=== PATIENT | female | born 2000 | race Caucasian/White ===

== ENCOUNTER 2019-12-21 03:06 | Emergency (ER) | payer OTHER, SELFPAY ==
[2019-12-21 03:13] VITALS: BP 128/66; PULSE 109; RESP 20; TEMP 36.8; O2SAT 99
[2019-12-21 03:16] VITALS: O2SAT 99
--- NOTE | 2019-12-21 03:26 | ED.URI ---
HPI - URI/Sore Throat General Chief Complaint: Upper Respiratory Infection Stated Complaint: cough, fever Time Seen by Provider: 12/21/19 03:15 Source: patient Mode of arrival: ambulatory Limitations: no limitations History of Present Illness HPI Narrative: Black hung is a 19-year-old female patient. She presents ambulatory to the emergency room. She states that she has been sick for 1 week. She has had cough congestion. She has had fever. She has been taking some Tylenol. She has had a dry cough initially and now it is somewhat productive with yellowish green sputum. In the emergency room her temperature is 98?. 6? F she has some nausea. No abdominal pain. No chest pain. She has nasal congestion. Her throat is hurting. she has been taking some OTC medications. It is not helping. MD elicited complaint: fever, cough and sore throat Pertinent past history: other ( Anxiety) Onset (ago): week(s) ( 1 week) Consistency: intermittent Severity: moderate Description of mucous: yellow Exacerbating factors: nothing Relieving factors: nothing Context: other ( No recent travel) Associated symptoms: fever, chills, nasal congestion and sore throat Treatments prior to arrival: cold medicine Related Data Home Medications Medication Instructions Recorded Confirmed buspirone 5 mg PO PRN PRN 12/21/19 12/21/19 Allergies Allergy/AdvReac Type Severity Reaction Status Date / Time Penicillins Allergy Severe Unknown Verified 11/12/19 15:42 Sulfa (Sulfonamide Allergy Unknown Verified 11/16/19 08:17 Antibiotics) Review of Systems Review of Systems: All systems reviewed & are unremarkable except as noted in HPI and below Constitutional: Constitutional: Reports as per HPI, Reports chills and Reports fever(s) Eyes: Eyes: Reports as per HPI, Reports no additional eye complaints and Denies change in vision ENT: Reports system reviewed and no additional complaints, except as documented, Reports nasal congestion and Reports sore throat Cardiovascular: Cardiovascular: Denies chest pain and Denies radiating jaw, neck or arm pain Respiratory: Respiratory: Reports as per HPI, Reports no additional respiratory complaints, Reports cough and Reports wheezing Gastrointestinal: Gastrointestinal: Reports as per HPI, Denies abdominal pain and Reports nausea Genitourinary: Genitourinary: Reports no additional female genitourinary complaints, Denies hematuria and Denies dysuria Musculoskeletal: Musculoskeletal: Reports no additional musculoskeletal complaints, Denies arthralgias and Denies muscle cramps Integumentary/Breasts: Skin/Breast: Reports system reviewed and no additional complaints, except as docu and Denies rash Neurologic: Reports system reviewed and no additional complaints, except as documented, Denies syncope and Denies numbness Psychiatric: Psychiatric: Reports no additional psychiatric complaints and Reports anxiety Endocrine: Endocrine: Reports no additional endocrine complaints and Denies polydipsia Hematologic/Lymphatic: Hematologic/Lymphatic: Reports no additional hematologic/lymphatic complaints, Denies easy bleeding and Denies easy bruising Allergic/Immunologic: Allergic/Immunologic: Reports no additional allergic/immunologic complaints, Denies lip swelling and Denies tongue swelling PMFSH Past Medical History Medical History Anxiety Goiter Surgical History Surgical History No pertinent past surgical history Family History Family History Grandparent Diabetes mellitus Hypertension Other Family history of malignant neoplasm of cervix Social History Social History Smoking status: Never smoker Alcohol intake: never Exam Const: General: no acute distress ( moderate d
[2019-12-21] MEDS: BENZONATATE 100 MG CAPSULE PO (03:41)
--- NOTE | 2019-12-21 03:49 | PC.NURSE ---
Unable to document NF drug Robitussin AC on JAN. Pt. given 5ml as per stat order of Guaifenesin AC syrup.
[2019-12-21 03:50] LABS: Influenza Control Valid (Valid)
[2019-12-21] MEDS: ONDANSETRON HCL ODT 4 MG TABLET SUBLINGUAL (03:54)
[2019-12-21 04:06] VITALS: BP 110/62; PULSE 100; RESP 18; O2SAT 99
== END 2019-12-21 04:21 | disposition home or self-care (01) ==
PROVIDERS: Emergency Provider Surgery; PCP Internal Medicine
DX: J40 Bronchitis, not specified as acute or chronic (principal); J06.9 Acute upper respiratory infection, unspecified
CPT/HCPCS: 87081; 87804; 87880; 99283; A9270

== ENCOUNTER 2021-01-10 00:44 | Emergency (ER) | payer OTHER, SELFPAY ==
--- NOTE | ~2021-01-10 | CT_ITS ---
EXAMINATION: CT abdomen pelvis w con EXAM DATE: 01/10/2021 03:02 INDICATION: Left lower quadrant pain. TECHNIQUE: Spiral CT of the abdomen and pelvis was performed following intravenous injection of 100 m L Omnipaque 350. Axial, coronal and sagittal images were reviewed. The dose-length product (DLP) fo r this examination was 210.85 mGy-cm. The exposure was tailored according to patient size (auto mA e xposure control), and iterative reconstruction (ASIR) was used as additional dose reduction technique . Comparison is made to prior examination from 09/22/2018. FINDINGS: The liver, spleen, adrenal glands and pancreas are unremarkable. Gallbladder is unremarkab le. No biliary obstruction. Portal and splenic veins are patent. Kidneys enhance symmetrically. T here is no hydronephrosis. There is IUD which appears to be centrally located within the endometriu m, expected position. Trace free pelvic fluid, likely physiologic. The bladder is unremarkable. The re is no retroperitoneal or pelvic lymphadenopathy. Probable identification of a normal appendix. No pericecal inflammation. The stomach and small jillian l are unremarkable. The colon is nondistended throughout, with mildly prominent appearing wall. No free intraperitoneal gas. The heart is normal in size. There are no pericardial or pleural effusi ons. The lung bases are unremarkable. The bones are unremarkable. IMPRESSION: 1. Possible mild colitis. Reviewed, dictated and finalized at location B. BAG STITCHER IMPRESSION: 1. Possible mild colitis.
[2021-01-10 00:53] VITALS: BP 109/68; PULSE 99; RESP 18; TEMP 37.1; O2SAT 100
[2021-01-10 01:08] LABS: Basophils Percent Auto 0.2 % (0.2-1.2); Eosinophils Percent Auto 0.2 % (0-4.4); Hemoglobin 15.4 g/dL (12.0-15.0); Immature Granulocyte Absolute 0.08 K/mm3 (0.00-0.031); Immature Granulocyte Percent A 0.5 % (0-0.5); Lymphocytes Absolute Auto 1.48 K/mm3 (0.9-3.2); Lymphocytes Percent Auto 8.9 % (18.3-44.2); Mean Corpuscular HGB Conc 34.2 g/dl (32-36); Mean Corpuscular Hemoglobin 32.1 pg (26-34); Mean Corpuscular Volume 93.8 fl (80-100); Mean Platelet Volume 9.6 fl (7.4-10.4); Monocytes Percent Auto 5.8 % (2.6-8.5); Neutrophils Percent Auto 84.4 % (45.5-73.1); Platelet Count Result 317 k/mm3 (150-375); White Blood Count 16.6 K/mm3 (4.5-10.0)
--- NOTE | 2021-01-10 01:08 | ED.NAVMDI ---
HPI - Nausea/Vomiting/Diarrhea General Chief complaint: Nausea/Vomiting/Diarrhea <Cruz Muro MD - Last Filed: 01/10/21 01:36> Stated complaint: Nausea, vomiting, fevers <Cruz Muro MD - Last Filed: 01/10/21 01:36> Time Seen by Provider: 01/10/21 00:58 <Cruz Muro MD - Last Filed: 01/10/21 01:36> Source: patient and family <Cruz Muro MD - Last Filed: 01/10/21 01:36> Mode of arrival: ambulatory <Cruz Muro MD - Last Filed: 01/10/21 01:36> Limitations: no limitations <Cruz Muro MD - Last Filed: 01/10/21 01:36> History of Present Illness HPI Narrative: Patient is 20 years old white female brought to the emergency room by her sister, complaining of nausea and vomiting started around noon today associated with left lower quadrant pain. Patient denies any fever, chills, diarrhea, chest pain, shortness of breath, headache, similar symptoms, history of Covid or exposure to anybody known having Covid.. History with a lot of stress lately started having antidepressant medication few days ago, history of stomach ulcer not on any medications, history of tonsillitis, started on Z-Terence 3 days ago Patient is a smoker, uses marijuana, drinks occasionally <Cruz Muro MD - Last Filed: 01/10/21 01:36> Related Data Home medications: Home Medications Medication Instructions Recorded Confirmed buspirone 5 mg PO PRN PRN 12/21/19 12/21/19 <Cruz Muro MD - Last Filed: 01/10/21 01:36> Allergies/Adverse reactions: Allergies Allergy/AdvReac Type Severity Reaction Status Date / Time Penicillins Allergy Severe Unknown Verified 01/10/21 00:56 Sulfa (Sulfonamide Allergy Unknown Verified 01/10/21 00:56 Antibiotics) <Cruz Muro MD - Last Filed: 01/10/21 01:36> Review of Systems Review of Systems: Narrative: CONSTITUTIONAL: Denies fever, chills, or sweats. EYES: Denies visual changes, redness, or discharge. ENT: Denies rhinorrhea, congestion, sore throat, or otalgia. CARDIOVASCULAR: Denies chest pain, palpitations, or edema. RESPIRATORY: Denies cough or dyspnea. GASTROINTESTINAL: Abdominal pain, nausea and vomiting GENITOURINARY: Denies dysuria or hematuria. SKIN: Denies rash or itching. MUSCULOSKELETAL: Denies back pain, joint pain, or myalgia. NEUROLOGIC: Denies headache, numbness, or weakness. PSYCHIATRIC: Denies anxiety or depression. <Cruz Muro MD - Last Filed: 01/10/21 01:36> PMFSH Past Medical History Medical History: Medical History (Updated 01/10/21 @ 05:06 by Tawanda Valadez DO) Anxiety Goiter <Cruz Muro MD - Last Filed: 01/10/21 01:36> Surgical History Surgical History: Surgical History No pertinent past surgical history <Cruz Muro MD - Last Filed: 01/10/21 01:36> Family History Family History: Family History Grandparent Diabetes mellitus Hypertension Other Family history of malignant neoplasm of cervix <Cruz Muro MD - Last Filed: 01/10/21 01:36> Social History Social History: Social History Smoking status: Never smoker Alcohol intake: never Gender identity (if verbalized by the patient): Female <Cruz Muro MD - Last Filed: 01/10/21 01:36> Exam Narrative: Exam Narrative: General appearance: Well-developed, well-nourished, looks ill, sister at the bedside Skin: Pale Head: Normocephalic, nontraumatic Eyes: Clear conjunctiva ENT: Oropharynx normal, ears normal, nose normal Neck: Supple, nontender Chest and respiratory: Airway patent, no respiratory distress, no accessory muscle use Heart: Regular rate/rhythm Abdomen: Soft, slight tenderness left lower quadrant, no guarding or rebound, no organomegaly, quiet bowel sounds Vascular: Normal peripheral pulses, normal capillary refill. Neurologic: Alert and oriented
--- NOTE | 2021-01-10 01:10 | PC.NURSE ---
Pt unable to give urine sample at this time
[2021-01-10] MEDS: diphenhydrAMINE HCl INJ 50 MG/ML VIAL IV PUSH (01:14)
[2021-01-10] MEDS: SODIUM CHLORIDE 0.9% IV 2,000 ML 999 ML IV CONT (01:14)
[2021-01-10] MEDS: METOCLOPRAMIDE HCL INJ 10 MG/2 ML VIAL IV PUSH (01:14)
[2021-01-10 01:27] LABS: Albumin Level 4.8 g/dL (3.5-5.1); Alkaline Phosphatase 72 U/L (38-126); Anion Gap 15 mmol/L (8-16); Aspartate Amino Transferase 30 U/L (14-36); Bilirubin,Total 1.4 mg/dL (0.2-1.3); Blood Urea Nitrogen 16 mg/dL (7-17); Calcium 9.8 mg/dL (8.4-10.2); Carbon Dioxide 20 mmol/L (22-30); Chloride 103 mmol/L (98-107); Estimated CRCL calculation 82 ml/min; Estimated Glomerular Filt Rate > 60; Glucose 156 mg/dL (65-105); Lipase 88 U/L (23-300); Potassium 3.9 mmol/L (3.4-5.0); Sodium 138 mmol/L (137-145)
[2021-01-10 01:41] LABS: Alanine Aminotransferase 28 U/L (4-35)
[2021-01-10] MEDS: ONDANSETRON INJ 4 MG/2 ML VIAL IV PUSH ×2 (02:03→04:30)
[2021-01-10 03:03] LABS: Add Urine Microscopic? YES; Appearance Urine Clear (Clear); Bilirubin Urine Negative (Negative); Blood Urine Negative (Negative); Color Urine Straw (Yellow); Glucose Urine UA 1+ mg/dL (Negative); Ketones Urine 1+ mg/dL (Negative); Leukocyte Esterase Ur Negative LEU/UL (Negative); Mucus Urine Rare /lpf; Nitrate Urine Negative (Negative); Protein Urine Negative (Negative); RBC Urine 0-2 /hpf (0-2); Specific Grav Ur 1.017 (1.001-1.035); Squamous Epithelial Cell Urine Few /hpf (Few); Urobilinogen Urine Negative mg/dL (<2.0); WBC Urine 0-3 /hpf
[2021-01-10 03:10] LABS: Amphetamine Screen Urine Negative (Negative); Barbiturate Screen Urine Negative (Negative); Benzodiazepines Screen Urine Negative (Negative); Cannabinoid Screen Urine Positive (Negative); Cocaine Screen Urine Negative (Negative); Methadone Screen Urine Negative (Negative); Opiate Screen Urine Negative (Negative); Phencyclidine Screen Urine Negative (Negative)
[2021-01-10] MEDS: KETOROLAC 15 MG/ML VIAL (*BKC) IV PUSH (04:07)
[2021-01-10] MEDS: DICYCLOMINE HCL INJ 20 MG/2 ML VIAL IM (04:07)
[2021-01-10] MEDS: MORPHINE SULFATE (*CRX) 4 MG/ML INJ IV PUSH (04:29)
[2021-01-10] MEDS: PROCHLORPERAZINE EDISYLATE 10 MG/2 ML VIAL 5 MG IV PUSH (04:33)
[2021-01-10] MEDS: metroNIDAZOLE 500 MG/ISO 100ML 500 MG/100 ML BAG 100 MG IVPB (04:55)
[2021-01-10 04:56] VITALS: BP 105/79; PULSE 63; RESP 18; O2SAT 99
[2021-01-10] MEDS: CIPROFLOXACIN 400 MG/D5W 200ML 200 ML 200 MG IVPB (05:27)
[2021-01-10 06:51] VITALS: BP 96/65; PULSE 89; RESP 18; O2SAT 97
== END 2021-01-10 06:53 | disposition home or self-care (01) ==
PROVIDERS: Emergency Medicine; Emergency Provider Emergency Medicine; PCP Internal Medicine
DX: K52.9 Noninfective gastroenteritis and colitis, unspecified (principal); F41.9 Anxiety disorder, unspecified
CPT/HCPCS: 36415; 74177; 80053; 80307; 81001; 81025; 83690; 85025; 96361; 96365; 96367; 96372; 96375; 96376; 99284; J0500; J0744; J0780; J1200; J1885; J2270; J2405; J2765; J7030; Q9967

== ENCOUNTER 2021-03-08 06:57 | Emergency (ER) | payer OTHER, SELFPAY ==
--- NOTE | ~2021-03-08 | XR_ITS ---
EXAMINATION: XR chest 2V DATE: 03/08/2021 08:04 INDICATION: Chest congestion. Cough. Shortness of breath. TECHNIQUE: Frontal and lateral views of the chest were obtained. COMPARISON: Chest 2 views 11/16/2019 FINDINGS: The chest demonstrates clear lungs without pneumonia, pleural effusion, or pneumothorax. Th e heart size is normal. IMPRESSION: 1. No acute cardiopulmonary disease. Reviewed, dictated and finalized at location B.
[2021-03-08 07:05] VITALS: BP 103/89; PULSE 96; RESP 20; TEMP 36.7; O2SAT 96
[2021-03-08] MEDS: IPRATROPIUM 0.5 MG/ALBUTEROL SULFATE 2.5 MG AMPUL.NEB 3 ML INHALATION (07:25)
[2021-03-08 07:26] VITALS: PULSE 112; RESP 18; O2SAT 99
[2021-03-08 07:28] LABS: Basophils Absolute Auto 0.04 K/mm3 (0.00-0.10); Basophils Percent Auto 0.3 % (0.0-1.0); Eosinophils Absolute Auto 0.06 K/mm3 (0.02-0.50); Eosinophils Percent Auto 0.4 % (1.0-6.0); Hematocrit 42.7 % (35.0-49.0); Hemoglobin 14.6 g/dL (12.0-15.0); Immature Granulocyte Absolute 0.06 K/mm3 (0.00-0.00); Immature Granulocyte Percent A 0.4 % (0.0-0.0); Lymphocytes Absolute Auto 1.27 K/mm3 (1.10-4.50); Lymphocytes Percent Auto 8.7 % (18.0-42.0); Mean Corpuscular HGB Conc 34.2 g/dL (32.0-36.0); Mean Corpuscular Hemoglobin 32.2 pg (27.0-31.0); Mean Corpuscular Volume 94.3 fL (78.0-102.0); Mean Platelet Volume 9.6 fl (9.2-11.8); Monocytes Percent Auto 9.6 % (2.0-11.0); Neutrophils Absolute Auto 11.7 K/mm3 (1.7-7.2); Neutrophils Percent Auto 80.6 % (50.0-70.0); Platelet Count Result 294 K/mm3 (150-420); Red Blood Count 4.53 M/mm3 (4.20-5.40); Red Cell Distribution Width 12.2 % (11.6-14.4); White Blood Count 14.6 K/mm3 (4.8-10.8)
[2021-03-08 07:30] VITALS: PULSE 112; RESP 18; O2SAT 99
[2021-03-08] MEDS: BENZONATATE 100 MG CAPSULE 200 MG PO (07:40)
[2021-03-08 07:46] LABS: Alanine Aminotransferase 22 U/L (14-59); Albumin Level 4.1 g/dL (3.4-5.0); Alkaline Phosphatase 81 U/L (46-116); Anion Gap 12 mmol/L (8-16); Aspartate Amino Transferase 17 U/L (15-37); Bilirubin,Total 0.7 mg/dL (0.00-1.00); Blood Urea Nitrogen 6 mg/dL (7-18); Calcium 9.6 mg/dL (8.5-10.1); Carbon Dioxide 25 mmol/L (21-32); Chloride 102 mmol/L (98-108); Estimated Glomerular Filt Rate > 60; Glucose 99 mg/dL (70-99); Osmolality Calculated 285 mOsm/kg (285-295); Potassium 3.7 mmol/L (3.5-5.1); Sodium 139 mmol/L (136-145); Total Protein 7.6 g/dL (6.4-8.2)
--- NOTE | 2021-03-08 08:08 | ED.URI ---
HPI - URI/Sore Throat General Chief Complaint: Upper Respiratory Infection Stated Complaint: cough sob Source: patient Mode of arrival: ambulatory Limitations: no limitations History of Present Illness HPI Narrative: this is a 20-year-old female with a cough and chest congestion for the last week with no fever or chills has tried aokh-lit-gzliihx medications with minimal relief currently no shortness of breath her O2 saturations are 99% on room air but has a constant cough with some no chest tightness, patient has a remote history of asthma but has not had inhalers and ears. Currently there is no audible wheezing there is some sinus congestion with nasal discharge. MD elicited complaint: cough and nasal congestion Onset (ago): day(s) Consistency: constant Severity: moderate Description of mucous: clear Able to tolerate fluids by mouth: Yes Related Data Home Medications Medication Instructions Recorded Confirmed clonazepam [Klonopin] 0.5 mg PO DAILY PRN 03/08/21 03/08/21 Allergies Allergy/AdvReac Type Severity Reaction Status Date / Time Penicillins Allergy Severe Unknown Verified 01/10/21 00:56 Sulfa (Sulfonamide Allergy Unknown Verified 01/10/21 00:56 Antibiotics) Review of Systems Review of Systems: All systems reviewed & are unremarkable except as noted in HPI and below PMFSH Past Medical History Medical History (Updated 03/08/21 @ 08:12 by Rico Oneill MD) Anxiety Goiter Surgical History Surgical History No pertinent past surgical history Family History Family History Grandparent Diabetes mellitus Hypertension Other Family history of malignant neoplasm of cervix Social History Social History Smoking status: Never smoker Alcohol intake: never Gender identity (if verbalized by the patient): Female Exam Const: General: no acute distress and alert Orientation/consciousness: patient oriented x3 Limitations: altered mental status HENMT: Head: normal to inspection Eyes: Conjunctivae: conjunctivae normal EOM: EOMs intact bilaterally Neck: Neck: normal visual inspection, no lymphadenopathy and no meningeal signs Chest: Chest palpation & inspection: normal inspection of the chest Resp: Effort & Inspection: normal respiratory effort Auscultation: rales Cardio: Rate: regular rate Rhythm: regular rhythm GI: GI Palp: Yes Soft to palpation Back/Spine/Pelvis: Back: no CVA tenderness Skin: General skin exam: normal color Rashes: no rashes Extrem: General: normal to inspection Psych: Mental Status: mental status grossly normal Course Course Emergency Course: Patient received a nebulizer treatment along with Tessalon Perle cough has improved, will send antibiotic to pharmacy for the front upper respiratory tract infection. Vital Signs Vital signs: Vital Signs Temperature 36.7 C 03/08/21 07:05 Pulse Rate 96 03/08/21 07:05 Respiratory Rate 20 03/08/21 07:05 Blood Pressure 103/89 03/08/21 07:05 Pulse Oximetry 96 03/08/21 07:05 Temperature 36.7 C 03/08/21 07:05 Pulse Rate 112 H 03/08/21 07:30 Respiratory Rate 18 03/08/21 07:30 Blood Pressure 103/89 03/08/21 07:05 Pulse Oximetry 99 03/08/21 07:30 MDM - URI/Sore Throat Lab Data Result diagrams: 03/08/21 07:23 03/08/21 07:23 Labs: Lab Results 03/08/21 03/08/21 Range/Units 07:23 07:23 WBC 14.6 H (4.8-10.8) K/mm3 RBC 4.53 (4.20-5.40) M/mm3 Hgb 14.6 (12.0-15.0) g/dL Hct 42.7 (35.0-49.0) % MCV 94.3 (78.0-102.0) fL MCH 32.2 H (27.0-31.0) pg MCHC 34.2 (32.0-36.0) g/dL RDW 12.2 (11.6-14.4) % Plt Count 294 (150-420) K/mm3 MPV 9.6 (9.2-11.8) fl Immature Gran % (Auto) 0.4 H (0.0-0.0) % Neut % (Auto) 80.6 H (50.0-70.0) % Lymph % (Au
[2021-03-08 08:16] VITALS: RESP 17
== END 2021-03-08 08:18 | disposition home or self-care (01) ==
PROVIDERS: Emergency Provider Emergency Medicine; PCP Internal Medicine
DX: J06.9 Acute upper respiratory infection, unspecified (principal)
CPT/HCPCS: 36415; 71046; 80053; 85025; 94640; 99283; A9270

== ENCOUNTER 2021-03-18 10:25 | Observation (INO) | payer OTHER, SELFPAY ==
--- NOTE | ~2021-03-18 | XR_ITS ---
XR chest 2V DATE: 03/18/2021 11:32 INDICATION: Productive cough TECHNIQUE: PA and lateral views COMPARISON: 03/08/2021 PA and lateral chest FINDINGS: Mild levoscoliosis of the thoracic spine. Normal heart size. No hilar or mediastinal enlargement. No pulmonary infiltrate or consolidation, ple ural effusion or pulmonary vascular congestion or pneumothorax. IMPRESSION: No active cardiopulmonary disease or significant change since 03/08/2021 Reviewed, dictated and finalized at location A. IMPRESSION: No active cardiopulmonary disease or significant change since 2020
[2021-03-18 10:25] VITALS: BP 112/74; PULSE 94; RESP 20; TEMP 36.2; O2SAT 100
[2021-03-18] MEDS: SODIUM CHLORIDE 0.9% IV 1,000 ML 999 ML IV CONT ×2 (10:50→11:42)
[2021-03-18] MEDS: ONDANSETRON INJ 4 MG/2 ML VIAL IV PUSH ×3 (10:50→15:13)
--- NOTE | 2021-03-18 10:56 | ED.NAVMDI ---
HPI - Nausea/Vomiting/Diarrhea General Source: patient Mode of arrival: ambulatory Limitations: no limitations History of Present Illness HPI Narrative: 20-year-old comes in today complaining of vomiting that started approximately 1:00 a.m.. Patient states that she does usually drink alcohol but last night she drank much more than usual. She states she is also a daily marijuana user. She has upper abdominal pain but no fever, dysuria, hematuria, rash or edema. She states that she is on an antibiotic for a respiratory infection but overnight she started having shortness of breath and a productive cough. MD elicited complaint: vomiting and abdominal pain Onset (ago): hour(s) (10) Description of vomiting: food contents, watery and bloody ( After arrival to the emergency department) Associated nausea: Yes Associated abdominal pain: Yes Location of pain: epigastric Pain consistency: constant Severity: severe Exacerbating factors: vomiting and other ( attempting to drink fluids) Relieving factors: none Context: alcohol abuse and marijuana use Associated symptoms: cough, nausea/vomiting and shortness of breath Treatment prior to arrival: none Related Data Home Medications Medication Instructions Recorded Confirmed No Home Medications 03/18/21 03/18/21 Allergies Allergy/AdvReac Type Severity Reaction Status Date / Time Penicillins Allergy Severe Unknown Verified 01/10/21 00:56 Sulfa (Sulfonamide Allergy Unknown Verified 01/10/21 00:56 Antibiotics) Review of Systems Review of Systems: All systems reviewed & are unremarkable except as noted in HPI and below Constitutional: Constitutional: Denies chills and Denies fever(s) Eyes: Eyes: Denies change in vision and Denies photophobia ENT: Reports nasal congestion and Reports sore throat Cardiovascular: Cardiovascular: Denies chest pain and Denies radiating jaw, neck or arm pain Respiratory: Respiratory: Reports cough, Reports dyspnea and Denies wheezing Gastrointestinal: Gastrointestinal: Reports abdominal pain, Denies diarrhea and Reports vomiting Genitourinary: Genitourinary: Denies hematuria, Denies nocturia and Denies dysuria Musculoskeletal: Musculoskeletal: Denies back pain, Denies arthralgias and Denies joint swelling Integumentary/Breasts: Skin/Breast: Denies pruritus, Denies erythema and Denies rash Neurologic: Denies vertigo, Denies dizziness, Denies syncope, Denies focal weakness and Denies numbness Hematologic/Lymphatic: Hematologic/Lymphatic: Denies easy bleeding and Denies easy bruising Allergic/Immunologic: Allergic/Immunologic: Denies lip swelling and Denies throat swelling PMFSH Past Medical History Medical History Anxiety Goiter Surgical History Surgical History No pertinent past surgical history Family History Family History Grandparent Diabetes mellitus Hypertension Other Family history of malignant neoplasm of cervix Social History Social History Smoking status: Never smoker Alcohol intake: current Drinks per week: 1 Substance use: current Substance use type: marijuana Last use: daily Gender identity (if verbalized by the patient): Female Spiritual care concerns: No Exam Const: General: healthy appearing and alert Orientation/consciousness: patient oriented x3 Limitations: no limitations Other: moderate acute distress HENMT: Head: normal to inspection Ears: external ears normal, TM's normal bilaterally and EAC's normal General nose exam: Normal nares present Face and sinus: normal facial exam Mouth: Yes moist mucous membranes Throat: posterior oropharynx normal Eyes: Cornea: corneas normal Pupils: Equal, round and reactive pupils present EOM: EOMs intact bilaterally Res
[2021-03-18 11:14] LABS: Albumin Level 4.3 g/dL (3.4-5.0); Alkaline Phosphatase 81 U/L (46-116); Anion Gap 17 mmol/L (8-16); Aspartate Amino Transferase 18 U/L (15-37); Bilirubin,Total 0.5 mg/dL (0.00-1.00); Calcium 9.4 mg/dL (8.5-10.1); Carbon Dioxide 21 mmol/L (21-32); Chloride 100 mmol/L (98-108); Estimated CRCL calculation 60 ml/min; Estimated Glomerular Filt Rate > 60; Glucose 133 mg/dL (70-99); Potassium 3.6 mmol/L (3.5-5.1); Sodium 138 mmol/L (136-145); Total Protein 7.8 g/dL (6.4-8.2)
--- NOTE | 2021-03-18 11:16 | PC.NURSE ---
report to MARIA TERESA Faith
[2021-03-18 11:18] LABS: Hematocrit 42.4 % (35.0-49.0); Hemoglobin 14.1 g/dL (12.0-15.0); Mean Corpuscular HGB Conc 33.3 g/dL (32.0-36.0); Mean Corpuscular Hemoglobin 31.6 pg (27.0-31.0); Mean Corpuscular Volume 95.1 fL (78.0-102.0); Mean Platelet Volume 9.9 fl (9.2-11.8); Platelet Count Result 479 K/mm3 (150-420); Red Blood Count 4.46 M/mm3 (4.20-5.40); Red Cell Distribution Width 12.2 % (11.6-14.4)
[2021-03-18 11:21] LABS: White Blood Count 26.9 K/mm3 (4.8-10.8)
[2021-03-18 11:24] LABS: Blood Urea Nitrogen 5 mg/dL (7-18); Osmolality Calculated 285 mOsm/kg (285-295)
[2021-03-18 11:26] LABS: Lipase 36 U/L (73-393)
[2021-03-18 11:34] LABS: Alanine Aminotransferase 29 U/L (14-59)
[2021-03-18 11:40] LABS: Band Neutrophils Percent 0 % (0-6); Basophils Percent Manual 0 % (0-1); Eosinophils Percent Manual 0 % (1-6); Lymphocytes Absolute Manual 2.95 K/mm3 (1.1-4.5); Lymphocytes Percent Manual 11 % (18-44); Monocytes Absolute Manual 1.07 K/mm3 (0.1-0.90); Monocytes Percent Manual 4 % (3-9); Neutrophils Absolute Manual 23.13 K/mm3 (1.7-7.2); Neutrophils Percent Manual 86 % (46-73); Total Cells Counted 100
[2021-03-18] MEDS: PANTOPRAZOLE SODIUM IV 40 MG VIAL 80 MG IV PUSH (11:42)
[2021-03-18 12:26] LABS: Appearance Urine Clear (Clear); Bilirubin Urine Negative (Negative); Color Urine Yellow (Yellow); Glucose Urine UA Negative (Negative); Ketones Urine Trace (Negative); Leukocyte Esterase Ur Negative (Negative); Nitrate Urine Negative (Negative); Protein Urine Negative (Negative); Urobilinogen Urine 0.2 mg/dL (0.2-1.0)
[2021-03-18 12:28] LABS: Pregnancy On Board Control Positive; Urine Pregnancy Test Negative
[2021-03-18 12:29] LABS: Add Urine Microscopic? YES; Blood Urine Trace-lysed (Negative)
[2021-03-18 12:30] LABS: Bacteria Urine Trace /hpf; RBC Urine 0-2 /hpf (0-2); Squamous Epithelial Cell Urine Rare /hpf (Few); WBC Urine 0-3 /hpf (0-3)
[2021-03-18 12:33] LABS: Amphetamine Screen Urine Negative (Negative); Barbiturate Screen Urine Negative (Negative); Benzodiazepines Screen Urine Negative (Negative); Cannabinoid Screen Urine Positive (Negative); Cocaine Screen Urine Negative (Negative); Methadone Screen Urine Negative (Negative); Opiate Screen Urine Negative (Negative); Phencyclidine Screen Urine Negative (Negative)
[2021-03-18] MEDS: PROMETHAZINE HCL 25 MG/ML AMPUL IM (13:10)
[2021-03-18 13:22] VITALS: BP 106/64; PULSE 88; RESP 20; O2SAT 97
[2021-03-18 13:40] VITALS: BP 115/76; PULSE 64; RESP 16; TEMP 36.6; O2SAT 100
[2021-03-18 13:45] VITALS: BMI 18.8
[2021-03-18] MEDS: DEXTROSE 5%/LACTATED RINGERS 1,000 ML 150 ML IV CONT ×2 (13:54→20:23)
--- NOTE | 2021-03-18 13:58 | PM.IMHP ---
H&P: HPI History of Present Illness Date/Time: 03/18/21 13:58 Chief Complaint: Abdominal pain and vomiting. Narrative: 20-year-old woman with history of daily marijuana use comes in today complaining of upper abdominal pain and vomiting which started at 1:00 a.m.. Patient states that she does not usually drink alcohol but last evening drink many drinks. She denies any drug use last night. She is unable to keep down any fluids. After she arrived to the emergency department she states that she had a small amount of blood in her vomitus. she states she is currently taking antibiotics for a respiratory infection. She states that she has had increased shortness of breath and productive cough since her vomiting started last night. She denies hemoptysis, chest pain, fever, diarrhea, rash, bruising, dysuria, hematuria, or back pain. She had 8 mg of Zofran and 2 L of normal saline in the emergency department which did not improve her symptoms. She also had 25 Phenergan IM which improved her symptoms somewhat. Review of Systems Review of Systems: All systems reviewed & are unremarkable except as noted in HPI and below Constitutional: Constitutional: Denies chills, Reports fatigue, Denies fever(s) and Reports headache(s) Eyes: Eyes: Denies blurry vision, Denies change in vision and Denies diplopia ENT: Denies otalgia, Denies facial pain, Reports nasal congestion, Denies nasal discharge, Denies odynophagia and Reports sore throat Cardiovascular: Cardiovascular: Denies chest pain, Denies leg edema and Reports lightheadedness Respiratory: Respiratory: Reports cough, Denies hemoptysis, Reports excessive phlegm production and Reports dyspnea Gastrointestinal: Gastrointestinal: Reports abdominal pain, Denies melena, Denies hematochezia, Denies coffee ground emesis, Denies diarrhea, Reports nausea, Reports vomiting and Reports hematemesis Genitourinary: Genitourinary: Denies hematuria, Denies dysuria and Denies urinary urgency Musculoskeletal: Musculoskeletal: Denies back pain, Denies arthralgias, Denies joint swelling and Denies numbness Integumentary/Breasts: Skin/Breast: Denies erythema, Denies rash and Denies wounds Neurologic: Denies Abnormal speech present, Denies abnormal gait, Reports headache(s), Denies focal weakness, Denies loss of vision, Denies numbness and Denies paresthesias Psychiatric: Psychiatric: Reports anxiety and Denies depression Hematologic/Lymphatic: Hematologic/Lymphatic: Denies easy bleeding and Denies easy bruising Allergic/Immunologic: Allergic/Immunologic: Denies urticaria, Denies throat swelling and Denies tongue swelling PMFSH Past Medical History Medical History Anxiety Goiter Surgical History Surgical History No pertinent past surgical history Family History Family History Grandparent Diabetes mellitus Hypertension Other Family history of malignant neoplasm of cervix Social History Social History Smoking status: Never smoker Alcohol intake: current Drinks per week: 1 Substance use: current Substance use type: marijuana Last use: daily Gender identity (if verbalized by the patient): Female Spiritual care concerns: No Meds Home Medications and Allergies Home Medications Medication Instructions Recorded Confirmed Type No Home Medications 03/18/21 03/18/21 History Allergies Allergy/AdvReac Type Severity Reaction Status Date / Time Penicillins Allergy Severe Unknown Verified 01/10/21 00:56 Sulfa (Sulfonamide Allergy Unknown Verified 01/10/21 00:56 Antibiotics) Vital Signs Vital Signs - 24 hr 03/18/21 10:25 03/18/21 13:22 Temperature 36.2 C L Pulse Rate 94 88 Respiratory Rate 20 20 Blood Pressure 112/74 106/64 Pulse Oximetry
[2021-03-18 16:00] VITALS: BP 107/65; PULSE 90; RESP 16; TEMP 37.1; O2SAT 96
[2021-03-18] MEDS: PANTOPRAZOLE SODIUM IV 40 MG VIAL IV PUSH (20:47)
[2021-03-19] VITALS: BP 114/62; PULSE 82; RESP 20; TEMP 36.8; O2SAT 98
[2021-03-19] MEDS: DEXTROSE 5%/LACTATED RINGERS 1,000 ML 150 ML IV CONT (03:04)
[2021-03-19] MEDS: ONDANSETRON INJ 4 MG/2 ML VIAL IV PUSH (03:19)
[2021-03-19 05:45] LABS: Hemoglobin 12.3 g/dL (12.0-15.0); Mean Corpuscular HGB Conc 33.2 g/dL (32.0-36.0); Mean Corpuscular Hemoglobin 32.1 pg (27.0-31.0); Mean Corpuscular Volume 96.6 fL (78.0-102.0); Mean Platelet Volume 9.7 fl (9.2-11.8); Platelet Count Result 373 K/mm3 (150-420); Red Blood Count 3.83 M/mm3 (4.20-5.40); Red Cell Distribution Width 12.5 % (11.6-14.4)
[2021-03-19 05:49] LABS: White Blood Count 20.4 K/mm3 (4.8-10.8)
[2021-03-19 05:55] LABS: Alanine Aminotransferase 22 U/L (14-59); Albumin Level 3.3 g/dL (3.4-5.0); Alkaline Phosphatase 63 U/L (46-116); Anion Gap 7 mmol/L (8-16); Aspartate Amino Transferase 21 U/L (15-37); Bilirubin,Total 0.6 mg/dL (0.00-1.00); Blood Urea Nitrogen 5 mg/dL (7-18); Calcium 8.9 mg/dL (8.5-10.1); Carbon Dioxide 27 mmol/L (21-32); Chloride 106 mmol/L (98-108); Estimated CRCL calculation 82 ml/min; Estimated Glomerular Filt Rate > 60; Glucose 100 mg/dL (70-99); Osmolality Calculated 287 mOsm/kg (285-295); Potassium 3.5 mmol/L (3.5-5.1); Sodium 140 mmol/L (136-145); Total Protein 6.2 g/dL (6.4-8.2)
[2021-03-19 06:12] LABS: Band Neutrophils Percent 0 % (0-6); Lymphocytes Absolute Manual 1.02 K/mm3 (1.1-4.5); Lymphocytes Percent Manual 5 % (18-44); Monocytes Absolute Manual 1.02 K/mm3 (0.1-0.90); Monocytes Percent Manual 5 % (3-9); Neutrophils Absolute Manual 18.36 K/mm3 (1.7-7.2); Neutrophils Percent Manual 90 % (46-73); Total Cells Counted 100
[2021-03-19 06:13] LABS: Platelet Estimate Adequate (Adequate)
[2021-03-19 07:25] VITALS: BP 115/73; PULSE 81; RESP 18; TEMP 37.4; O2SAT 97
[2021-03-19] MEDS: PANTOPRAZOLE SODIUM IV 40 MG VIAL IV PUSH (08:48)
--- NOTE | 2021-03-19 10:33 | PM.DS ---
DS: Admitting Diagnosis Admitting Diagnosis Admitting Diagnosis: Nausea and Vomiting Drug-induced nausea and vomiting, Leukocytosis, Acute kidney injury, Hematemesis <CHECO Coyne - Last Filed: 03/19/21 10:48> DS: Discharge Diagnosis Discharge Diagnosis (1) Drug-induced nausea and vomiting: Code(s): R11.2 - Nausea with vomiting, unspecified; T50.905A - Adverse effect of unspecified drugs, medicaments and biological substances, initial encounter <CHECO Coyne - Last Filed: 03/19/21 10:48> Status: Acute <CHECO Coyne - Last Filed: 03/19/21 10:48> Assessment and Plan: Pt states she was given Metronidazole for an URI and then subsequently consumed EtOH. Pt is not having any more N/V at this time and has tolerated full liquids and a sandwich. Pt does admit that she is a daily marijuana smoker. <CHECO Coyne - Last Filed: 03/19/21 10:48> (2) Leukocytosis: Code(s): D72.829 - Elevated white blood cell count, unspecified <CHECO Coyne - Last Filed: 03/19/21 10:48> Status: Acute <CHECO Coyne - Last Filed: 03/19/21 10:48> Assessment and Plan: On DC documentation from this facility ER Pt was given a Medrol dose pack and Doxycycline, elevated WBC may be due to the steroid, WBC is down today at 20.4, Pt can follow up with PCP at DC, Pt does not have any other signs/symptoms <CHECO Coyne - Last Filed: 03/19/21 10:48> (3) Acute kidney injury: Code(s): N17.9 - Acute kidney failure, unspecified <CHECO Coyne - Last Filed: 03/19/21 10:48> Status: Acute <CHECO Coyne - Last Filed: 03/19/21 10:48> Assessment and Plan: Renal funciton improved this AM, Cr 0.81, Pt not complaining of any lower abdominal pain, back, flank pain, no N/V <Saji WilkinsonCHECO crabtree - Last Filed: 03/19/21 10:48> (4) Hematemesis: Code(s): K92.0 - Hematemesis <Saji SebastianCHECO - Last Filed: 03/19/21 10:48> Status: Acute <Saji SebastianLOCOKimCeleste - Last Filed: 03/19/21 10:48> Assessment and Plan: Pt has not had any more vomiting since shortly after she came to the floor yesterday, no reports of bloody sputum or cough. <Saji WilkinsonLOCO crabtreeKimCeleste - Last Filed: 03/19/21 10:48> DS: Summary Hospital Course Hospital Course: Pt has not had any more N/V and has tolerated PO full liquids as well as a sandwich. <Saji WilkinsonLOCO crabtreeKimCeleste - Last Filed: 03/19/21 10:48> Time Spent with Patient Time attestation: Total time spent providing and/or coordinating discharge services: < 30 minutes <Saji WilkinsonLOCO crabtreeKimCeleste - Last Filed: 03/19/21 10:48> Exam Const: General: cooperative, comfortable, no acute distress, alert and awake <Saji WilkinsonLOCO crabtreeKimCeleste - Last Filed: 03/19/21 10:48> Nutritional Appearance: thin <Saji WilkinsonLOCO crabtreeKimCeleste - Last Filed: 03/19/21 10:48> HENMT: Head: normal to inspection, normocephalic and atraumatic <Saji WilkinsonCHECO crabtree - Last Filed: 03/19/21 10:48> Ears: hearing grossly normal bilaterally <Saji WilkinsonLOCO crabtreeKimCeleste - Last Filed: 03/19/21 10:48> Eyes: General: appearance normal, both eyes and all related structures <Sjai WilkinsonCHECO crabtree - Last Filed: 03/19/21 10:48> Alignment and Position: alignment normal <Saji Gonzalez CHECO Sebastian - Last Filed: 03/19/21 10:48> Eyelids: eyelids normal <Saji Gonzalez CHECO Sebastian - Last Filed: 03/19/21 10:48> Conjunctivae: conjunctivae normal <CHECO Coyne - Last Filed: 03/19/21 10:48> Sclera: sclerae normal <CHECO Coyne - Last Filed: 03/19/21 10:48> Neck: Neck: normal visual inspection and no JVD <CHECO Coyne - Last Filed: 03/19/21 10:48> Resp: Effort & Inspection: normal respiratory effort, able to speak in complete sentences and symmetric chest movement <CHECO Coyne - Last Filed: 03/19/21 10:48> Auscultation: clear to auscultation
--- NOTE | 2021-03-19 11:20 | PC.NURSE ---
Discharge instructions reviewed with patient, patient verbalizes understanding. Patient escorted off floor to main entrance, picked up by friend in privately owned vehicle.
--- NOTE | 2021-03-20 13:45 | PC.NURSE ---
Pt states she received and understood her discharge instructions. Pt has no other comments.
== END 2021-03-19 11:20 | disposition home or self-care (01) ==
LOC: CHSED 13:08 → CHS2ND 17:03
PROVIDERS: Admitting Provider Emergency Medicine; Emergency Provider Emergency Medicine; PCP Internal Medicine; Visit Provider Emergency Medicine
DX: R11.2 Nausea with vomiting, unspecified (principal); R10.13 Epigastric pain; D72.829 Elevated white blood cell count, unspecified; N17.9 Acute kidney failure, unspecified; F12.980 Cannabis use, unspecified with anxiety disorder; E04.9 Nontoxic goiter, unspecified; F10.10 Alcohol abuse, uncomplicated; Z80.49 Family history of malignant neoplasm of other genital organs
CPT/HCPCS: 36415; 71046; 80053; 80307; 81001; 81025; 83690; 85025; 96361; 96372; 96374; 96375; 96376; 99285; C9113; G0378; J2405; J2550; J7030; J7121

== ENCOUNTER 2021-06-03 08:18 | Observation (INO) | payer SELFPAY ==
[2021-06-03] VITALS (7 sets, daily range): BP systolic 112–140; BP diastolic 60–91; PULSE 64–99; RESP 16–20; TEMP 37–38.3; O2SAT 96–100; BMI 19.0
--- NOTE | ~2021-06-03 | XR_ITS ---
EXAMINATION: XR chest 2V DATE: 06/03/2021 12:52 INDICATION: Vomiting TECHNIQUE: PA and lateral views of the chest are obtained. COMPARISON: 03/18/2021 FINDINGS: The lungs are free of acute opacities. There is no pleural effusion or pneumothorax. The ca rdiomediastinal silhouette is normal. The visualized bones and soft tissues are unremarkable. IMPRESSION: 1. No acute cardiopulmonary abnormality. Reviewed, dictated and finalized at location A.
--- NOTE | ~2021-06-03 | CT_ITS ---
EXAMINATION: CT abdomen pelvis w con INDICATION: Nausea and vomiting TECHNIQUE: Computed tomographic images of the abdomen and pelvis were obtained after the administrati on of 100 cc of Omnipaque 350 intravenous contrast. The dose-length product (DLP) was 210.81 mGy-cm. Automated exposure control and iterative reconstruction technique were employed. COMPARISON: 01/10/2021 FINDINGS: The lung bases are clear. The heart size is normal. The liver, spleen, pancreas, gallbladde r, and adrenal glands are normal. The kidneys are unremarkable. No pathologically enlarged abdominal or pelvic lymph nodes are identified. There is no free intraperitoneal gas or evidence of bowel obstr uction. The appendix is normal. An IUD is noted in the uterus. There are mildly dilated left parametr ial veins, nonspecific IMPRESSION: 1. No CT correlate for the patient's symptoms. Reviewed, dictated and finalized at location A.
--- NOTE | 2021-06-03 08:28 | ED.NAVMDI ---
HPI - Nausea/Vomiting/Diarrhea General Chief complaint: Nausea/Vomiting/Diarrhea Stated complaint: vomiting Time Seen by Provider: 06/03/21 08:28 Source: patient and family Mode of arrival: ambulatory Limitations: no limitations History of Present Illness HPI Narrative: Patient admits to drinking alcohol in excess and smoking marijuana. She has had moderately severe nausea, ongoing since about 2am. The [employer] party was last night. She has had repeated emesis, and remains nauseated now. She has had no vision changes. She has had no significant abdominal pain. Soda at home and other measures, have not decreased the nausea. No other associated symptoms. She does not feel she was poisoned with methanol, or ethylene glycol. She has not taken any salicylates. MD elicited complaint: nausea and vomiting Pertinent past history: anorexia Onset (ago): hour(s) Description of vomiting: food contents Description of diarrhea: mucus, watery and other (bile) Associated nausea: Yes Associated abdominal pain: No Exacerbating factors: alcohol intake Related Data Home Medications Medication Instructions Recorded Confirmed No Home Medications 03/18/21 06/03/21 Allergies Allergy/AdvReac Type Severity Reaction Status Date / Time Penicillins Allergy Severe Unknown Verified 01/10/21 00:56 Sulfa (Sulfonamide Allergy Unknown Verified 01/10/21 00:56 Antibiotics) Review of Systems Constitutional: Constitutional: Reports fatigue and Reports weakness Eyes: Eyes: Reports no additional eye complaints ENT: Reports system reviewed and no additional complaints, except as documented Cardiovascular: Cardiovascular: Reports no additional cardiovascular complaints Respiratory: Respiratory: Reports no additional respiratory complaints Gastrointestinal: Gastrointestinal: Reports as per HPI, Reports nausea and Reports vomiting Genitourinary: Genitourinary: Reports no additional female genitourinary complaints Musculoskeletal: Musculoskeletal: Reports no additional musculoskeletal complaints Integumentary/Breasts: Skin/Breast: Reports system reviewed and no additional complaints, except as docu Neurologic: Reports system reviewed and no additional complaints, except as documented Psychiatric: Psychiatric: Reports no additional psychiatric complaints Endocrine: Endocrine: Reports no additional endocrine complaints Hematologic/Lymphatic: Hematologic/Lymphatic: Reports no additional hematologic/lymphatic complaints Allergic/Immunologic: Allergic/Immunologic: Reports no additional allergic/immunologic complaints PMFSH Past Medical History Medical History Adnexal fullness Anxiety Body mass index [BMI] pediatric, less than 5th percentile for age (01/30/18) Diarrhea Encounter for IUD insertion Encounter for visit Encounter for test, result negative Encounter for supervision of normal first , second trimester Encounter for supervision of normal first , third trimester Goiter IUD check up Pelvic pain in female Supervision of high risk in third trimester Supervision of other high risk pregnancies, second trimester Vaginal bleeding Surgical History Surgical History No pertinent past surgical history Family History Family History Grandparent Diabetes mellitus Hypertension Other Family history of malignant neoplasm of cervix Social History Social History Smoking status: Never smoker Alcohol intake: current Drinks per week: 1 Substance use: current Substance use type: marijuana Last use: daily for anxiety Gender identity (if verbalized by the patient): Female Spiritual care concerns: No Exam Const: General: no acute distress and alert Orientation/consciousness: pa
[2021-06-03] MEDS: ONDANSETRON HCL ODT 4 MG TABLET PO (08:37)
--- NOTE | 2021-06-03 09:50 | PC.NURSE ---
PT CONTINUES TO VOMIT AND C/O NAUSEA
[2021-06-03] MEDS: METOCLOPRAMIDE HCL 10 MG TABLET PO (09:56)
[2021-06-03 10:12] LABS: Hematocrit 43.1 % (35.0-49.0); Hemoglobin 14.9 g/dL (12.0-15.0); Mean Corpuscular HGB Conc 34.6 g/dL (32.0-36.0); Mean Corpuscular Hemoglobin 31.8 pg (27.0-31.0); Mean Corpuscular Volume 91.9 fL (78.0-102.0); Mean Platelet Volume 9.4 fl (9.2-11.8); Platelet Count Result 371 K/mm3 (150-420); Red Blood Count 4.69 M/mm3 (4.20-5.40); Red Cell Distribution Width 12.2 % (11.6-14.4); White Blood Count 19.9 K/mm3 (4.8-10.8)
[2021-06-03 10:32] LABS: Alanine Aminotransferase 30 U/L (14-59); Albumin Level 4.7 g/dL (3.4-5.0); Alkaline Phosphatase 91 U/L (46-116); Anion Gap 23 mmol/L (8-16); Aspartate Amino Transferase 20 U/L (15-37); Bilirubin,Total 0.6 mg/dL (0.00-1.00); Blood Urea Nitrogen 6 mg/dL (7-18); Calcium 10.2 mg/dL (8.5-10.1); Carbon Dioxide 21 mmol/L (21-32); Chloride 102 mmol/L (98-108); Estimated CRCL calculation 65 ml/min; Estimated Glomerular Filt Rate > 60; Ethanol 5 mg/dL (0-6); Glucose 162 mg/dL (70-99); Lipase 40 U/L (73-393); Osmolality Calculated 303 mOsm/kg (285-295); Potassium 3.5 mmol/L (3.5-5.1); Sodium 146 mmol/L (136-145); Total Protein 8.2 g/dL (6.4-8.2)
[2021-06-03 10:35] LABS: Band Neutrophils Percent 0 % (0-6); Basophils Absolute Manual 0.19 K/mm3 (0-0.1); Basophils Percent Manual 1 % (0-1); Eosinophils Absolute Manual 0.19 K/mm3 (0.02-0.5); Eosinophils Percent Manual 1 % (1-6); Lymphocytes Absolute Manual 0.99 K/mm3 (1.1-4.5); Lymphocytes Percent Manual 5 % (18-44); Monocytes Absolute Manual 1.59 K/mm3 (0.1-0.90); Monocytes Percent Manual 8 % (3-9); Neutrophils Absolute Manual 16.91 K/mm3 (1.7-7.2); Neutrophils Percent Manual 85 % (46-73); Platelet Estimate Adequate (Adequate)
[2021-06-03 10:42] LABS: Appearance Urine Clear (Clear); Bilirubin Urine Negative (Negative); Color Urine Light Yellow (Yellow); Glucose Urine UA Negative (Negative); Ketones Urine 1+ (Negative); Leukocyte Esterase Ur Trace LEU/UL (Negative); Nitrate Urine Negative (Negative); Protein Urine Trace (Negative); Specific Grav Ur 1.015 (1.010-1.020); Urobilinogen Urine 0.2 mg/dL (0.2-1.0)
[2021-06-03 10:45] LABS: Add Urine Microscopic? YES; Blood Urine Trace-Intact (Negative)
[2021-06-03 10:46] LABS: Bacteria Urine Trace /hpf; Squamous Epithelial Cell Urine Occasional /hpf (Few)
[2021-06-03 11:20] LABS: Pregnancy On Board Control Positive; Urine Pregnancy Test Negative
[2021-06-03] MEDS: SODIUM CHLORIDE 0.9% IV 1,000 ML 500 ML IV CONT ×2 (11:31→13:25)
--- NOTE | 2021-06-03 11:45 | PC.NURSE ---
PT CONTINUES TO C/O N/V.
[2021-06-03] MEDS: ONDANSETRON INJ 4 MG/2 ML VIAL IV PUSH ×2 (11:57→19:01)
[2021-06-03 12:12] LABS: Lactic Acid Reflex 6.4 mmol/L (0.4-2.0)
--- NOTE | 2021-06-03 12:49 | PC.NURSE ---
PT TO BE ADMITTED TO 2ND FLOOR FOR OBSERVATION, PT TO GO TO ROOM 205
[2021-06-03 12:53] LABS: Amphetamine Screen Urine Negative (Negative); Barbiturate Screen Urine Negative (Negative); Benzodiazepines Screen Urine Negative (Negative); Cannabinoid Screen Urine Positive (Negative); Cocaine Screen Urine Negative (Negative); Methadone Screen Urine Negative (Negative); Opiate Screen Urine Negative (Negative); Phencyclidine Screen Urine Negative (Negative)
[2021-06-03 13:06] LABS: Magnesium 1.6 mg/dL (1.8-2.4)
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
--- NOTE | 2021-06-03 13:30 | ADMGEN ---
This patient, Black Collado, was admitted to 2nd Floor Room 205-2. Patient/family oriented to hospital policies and general routines including ID bracelet, bed and alarms, visiting hours, pain management, procedures, bathroom and other care routines, personal items, smoking policy, room service/diet, and visiting hours. Patient/Family are encouraged to report perceived risks to care and to ask questions if they do not understand what they are told or what they should do.
[2021-06-03] MEDS: PROCHLORPERAZINE EDISYLATE 10 MG/2 ML VIAL IV PUSH (13:56)
--- NOTE | 2021-06-03 14:00 | PC.NURSE ---
pt given anti-nausea medication, pt reports she is feeling very anxious and would like something for it. iv fluids infusing per order, belongings within reach
[2021-06-03] MEDS: LORazepam INJ (*CRX) 2 MG/ML VIAL 0.5 MG IV PUSH (14:08)
[2021-06-03 14:58] LABS: Reflex Lactic Acid Yes or No Add Lactic
[2021-06-03] MEDS: MAGNESIUM SULF 2 GM/WATER 50ML 2 GM/50 ML BAG IVPB (14:58)
[2021-06-03 15:02] LABS: Basophils Absolute Auto 0.02 K/mm3 (0.00-0.10); Basophils Percent Auto 0.1 % (0.0-1.0); Eosinophils Absolute Auto 0.01 K/mm3 (0.02-0.50); Eosinophils Percent Auto 0.1 % (1.0-6.0); Hematocrit 38.5 % (35.0-49.0); Immature Granulocyte Absolute 0.09 K/mm3 (0.00-0.00); Immature Granulocyte Percent A 0.6 % (0.0-0.0); Lymphocytes Absolute Auto 0.65 K/mm3 (1.10-4.50); Lymphocytes Percent Auto 4.1 % (18.0-42.0); Mean Corpuscular HGB Conc 33.8 g/dL (32.0-36.0); Mean Corpuscular Hemoglobin 31.6 pg (27.0-31.0); Mean Corpuscular Volume 93.4 fL (78.0-102.0); Mean Platelet Volume 9.6 fl (9.2-11.8); Monocytes Absolute Auto 0.41 K/mm3 (0.10-0.90); Monocytes Percent Auto 2.6 % (2.0-11.0); Neutrophils Absolute Auto 14.7 K/mm3 (1.7-7.2); Neutrophils Percent Auto 92.5 % (50.0-70.0); Platelet Count Result 303 K/mm3 (150-420); Red Blood Count 4.12 M/mm3 (4.20-5.40); Red Cell Distribution Width 12.2 % (11.6-14.4); White Blood Count 15.8 K/mm3 (4.8-10.8)
[2021-06-03 15:23] LABS: Alanine Aminotransferase 26 U/L (14-59); Alkaline Phosphatase 75 U/L (46-116); Anion Gap 17 mmol/L (8-16); Aspartate Amino Transferase 15 U/L (15-37); Bilirubin,Total 0.6 mg/dL (0.00-1.00); Blood Urea Nitrogen 6 mg/dL (7-18); Carbon Dioxide 23 mmol/L (21-32); Chloride 106 mmol/L (98-108); Estimated CRCL calculation 68 ml/min; Estimated Glomerular Filt Rate > 60; Glucose 122 mg/dL (70-99); Lipase 30 U/L (73-393); Osmolality Calculated 300 mOsm/kg (285-295); Potassium 3.5 mmol/L (3.5-5.1); Sodium 146 mmol/L (136-145); Thyroid Stimulating Hormone 0.62 uIU/mL (0.36-3.74)
[2021-06-03 15:25] LABS: Hemoglobin A1C 5.4 % (<5.7)
[2021-06-03 15:28] LABS: Lactic Acid 4.9 mmol/L (0.4-2.0)
[2021-06-03] MEDS: THIAMINE HCL INJ 100 MG, FOLIC ACID INJ 1 MG, MULTIVITAMINS-12 INJ VIAL 1 5 ML, MULTIVI... 150 MG IV CONT (15:50)
[2021-06-03] MEDS: DEXTROSE 5%/0.45% SOD CHL 1,000 ML 250 ML IV CONT ×2 (16:29→21:53)
[2021-06-03] MEDS: POTASSIUM CHLORIDE 20 MEQ TABLET 40 MEQ PO (18:23)
--- NOTE | 2021-06-03 18:47 | PC.NURSE ---
pt up to shower after loose stool, iv wrapped and secured
--- NOTE | 2021-06-03 19:48 | PC.NURSE ---
States Nausea is better. Lying on side with eyes closed.
--- NOTE | 2021-06-03 20:25 | PC.NURSE ---
Domenico Douglas RN informed of elevated temperature.
--- NOTE | 2021-06-03 21:09 | PC.NURSE ---
MD notified that patient has low grade temp and there is no order for Tylenol. MD to put in orders.
[2021-06-03 21:47] LABS: Anion Gap 10 mmol/L (8-16); Blood Urea Nitrogen 4 mg/dL (7-18); Calcium 8.7 mg/dL (8.5-10.1); Carbon Dioxide 26 mmol/L (21-32); Chloride 109 mmol/L (98-108); Estimated CRCL calculation 90 ml/min; Estimated Glomerular Filt Rate > 60; Glucose 126 mg/dL (70-99); Osmolality Calculated 298 mOsm/kg (285-295); Sodium 145 mmol/L (136-145)
[2021-06-03] MEDS: ACETAMINOPHEN 325 MG TABLET 650 MG PO (21:50)
[2021-06-03 21:58] LABS: Lactic Acid Reflex 1.3 mmol/L (0.4-2.0)
--- NOTE | 2021-06-03 23:25 | PC.NURSE ---
Dr. Lyles here to see patient; New orders received and noted.
[2021-06-03] MEDS: DEXTROSE 5%/0.45% SOD CHL 1,000 ML 50 ML IV CONT (23:37)
[2021-06-04] VITALS: BP 112/62; PULSE 94; RESP 18; TEMP 37; O2SAT 97
[2021-06-04] MEDS: PROCHLORPERAZINE EDISYLATE 10 MG/2 ML VIAL IV PUSH (00:40)
--- NOTE | 2021-06-04 01:00 | PC.NURSE ---
Sleeping, no signs of nausea.
[2021-06-04 04:00] VITALS: BP 110/70; PULSE 80; RESP 18; TEMP 37.1; O2SAT 98
[2021-06-04 05:26] LABS: Hematocrit 37.6 % (35.0-49.0); Hemoglobin 12.4 g/dL (12.0-15.0); Mean Corpuscular Hemoglobin 31.9 pg (27.0-31.0); Mean Corpuscular Volume 96.7 fL (78.0-102.0); Mean Platelet Volume 9.8 fl (9.2-11.8); Platelet Count Result 290 K/mm3 (150-420); Red Blood Count 3.89 M/mm3 (4.20-5.40); Red Cell Distribution Width 12.5 % (11.6-14.4); White Blood Count 15.2 K/mm3 (4.8-10.8)
[2021-06-04 05:41] LABS: Alanine Aminotransferase 23 U/L (14-59); Albumin Level 3.5 g/dL (3.4-5.0); Alkaline Phosphatase 63 U/L (46-116); Anion Gap 9 mmol/L (8-16); Aspartate Amino Transferase 17 U/L (15-37); Bilirubin,Total 0.8 mg/dL (0.00-1.00); Blood Urea Nitrogen 4 mg/dL (7-18); Calcium 8.9 mg/dL (8.5-10.1); Carbon Dioxide 24 mmol/L (21-32); Chloride 110 mmol/L (98-108); Estimated CRCL calculation 91 ml/min; Estimated Glomerular Filt Rate > 60; Glucose 100 mg/dL (70-99); Magnesium 1.9 mg/dL (1.8-2.4); Osmolality Calculated 292 mOsm/kg (285-295); Sodium 143 mmol/L (136-145); Total Protein 6.2 g/dL (6.4-8.2)
[2021-06-04 05:50] LABS: Lactic Acid Reflex 1.4 mmol/L (0.4-2.0)
--- NOTE | 2021-06-04 06:38 | PC.NURSE ---
Sleeping; no signs of nausea or distress.
--- NOTE | 2021-06-04 07:09 | P.DS_ITS ---
DS: Admitting Diagnosis Admitting Diagnosis Admitting Diagnosis: Cannabinoid hyperemesis syndrome versus veisalgia <MEENAKSHI Edmondson - Last Filed: 06/04/21 10:36> DS: Discharge Diagnosis Discharge Diagnosis (1) Lactic acid acidosis: Code(s): E87.2 - Acidosis <Alka ParthMEENAKSHI Morales - Last Filed: 06/04/21 10:36> Status: Acute <Alka ParthMEENAKSHI Morales - Last Filed: 06/04/21 10:36> Assessment and Plan: * Possibly secondary to drug use * lactic acid 6.4>1.3>1.4 * CT of the abdomen and chest x-ray unremarkable <MEENAKSHI Edmondson - Last Filed: 06/04/21 10:36> (2) Drug-induced nausea and vomiting: Code(s): R11.2 - Nausea with vomiting, unspecified; T50.905A - Adverse effect of unspecified drugs, medicaments and biological substances, initial encounter <MEENAKSHI Edmondson - Last Filed: 06/04/21 10:36> Status: Acute <MEENAKSHI Edmondson - Last Filed: 06/04/21 10:36> Assessment and Plan: * Possibly secondary to veisalgia versus drug use versus cannabinoid hyperemesis * Probably secondary to withdrawal * Patient positive for marijuana admits to drinking alcohol * Continue Zofran and Reglan with IV fluids * Banana bag ordered * CT abdomen and check x-ray unremarkable * Patient will discharge home with Zofran <MEENAKSHI Edmondson - Last Filed: 06/04/21 10:36> (3) Leukocytosis: Code(s): D72.829 - Elevated white blood cell count, unspecified <MEENAKSHI Edmondson - Last Filed: 06/04/21 10:36> Status: Acute <MEENAKSHI Edmondson - Last Filed: 06/04/21 10:36> Assessment and Plan: * wbc 19.9>15.2. According to patient's mother she has a chronic elevated WBC will call over to Dr. Biggs office to get her baseline WBC * Rocephin discontinued <MEENAKSHI Edmondson - Last Filed: 06/04/21 10:36> (4) Alcohol abuse: Code(s): F10.10 - Alcohol abuse, uncomplicated <MEENAKSHI Edmondson - Last Filed: 06/04/21 10:36> Status: Acute <MEENAKSHI Edmondson - Last Filed: 06/04/21 10:36> Assessment and Plan: * Patient admits to alcohol use * More used and abuse <MEENAKSHI Edmondson - Last Filed: 06/04/21 10:36> (5) Hypomagnesemia: Code(s): E83.42 - Hypomagnesemia <MEENAKSHI Edmondson - Last Filed: 06/04/21 10:36> Status: Acute <MEENAKSHI Edmondson - Last Filed: 06/04/21 10:36> Assessment and Plan: * Magnesium 1.6>1.9 * Replace with supplement <MEENAKSHI Edmondson - Last Filed: 06/04/21 10:36> (6) Substance abuse: Code(s): F19.10 - Other psychoactive substance abuse, uncomplicated <MEENAKSHI Edmondson - Last Filed: 06/04/21 10:36> Status: Acute <MEENAKSHI Edmondson - Last Filed: 06/04/21 10:36> Assessment and Plan: * Positive for marijuana * Educated on cessation * Patient does have a medical marijuana license to treat anxiety with marijuana <Alka Hernández MEENAKSHI - Last Filed: 06/04/21 10:36> (7) Cannabinoid hyperemesis syndrome: Code(s): R11.2 - Nausea with vomiting, unspecified; F12.90 - Cannabis use, unspecified, uncomplicated <Alka Hernández MEENAKSHI - Last Filed: 06/04/21 10:36> Status: Acute <Alka Hernández MEENAKSHI - Last Filed: 06/04/21 10:36> Assessment and Plan: * Tested positive for cannabis * Chronic cannabis use * capsaicin and showers ordered <Alka Hernández MEENAKSHI - Last Filed: 06/04/21 10:36> DS: Summary Hospital Course Reason for hospitalization:
--- NOTE | 2021-06-04 07:09 | PM.DS ---
DS: Admitting Diagnosis Admitting Diagnosis Admitting Diagnosis: Cannabinoid hyperemesis syndrome versus veisalgia <TERRELL EdmondsonC - Last Filed: 06/04/21 10:36> DS: Discharge Diagnosis Discharge Diagnosis (1) Lactic acid acidosis: Code(s): E87.2 - Acidosis <Alka AlbaMEENAKSHI Morales - Last Filed: 06/04/21 10:36> Status: Acute <Srikanthharoon AlbaMEENAKSHI Morales - Last Filed: 06/04/21 10:36> Assessment and Plan: Possibly secondary to drug use lactic acid 6.4>1.3>1.4 CT of the abdomen and chest x-ray unremarkable <MEENAKSHI Edmondson - Last Filed: 06/04/21 10:36> (2) Drug-induced nausea and vomiting: Code(s): R11.2 - Nausea with vomiting, unspecified; T50.905A - Adverse effect of unspecified drugs, medicaments and biological substances, initial encounter <MEENAKSHI Edmondson - Last Filed: 06/04/21 10:36> Status: Acute <TERRELL EdmondsonC - Last Filed: 06/04/21 10:36> Assessment and Plan: Possibly secondary to veisalgia versus drug use versus cannabinoid hyperemesis Probably secondary to withdrawal Patient positive for marijuana admits to drinking alcohol Continue Zofran and Reglan with IV fluids Banana bag ordered CT abdomen and check x-ray unremarkable Patient will discharge home with Zofran <MEENAKSHI Edmondson - Last Filed: 06/04/21 10:36> (3) Leukocytosis: Code(s): D72.829 - Elevated white blood cell count, unspecified <ANTHONY Edmondson-C - Last Filed: 06/04/21 10:36> Status: Acute <MEENAKSHI Edmondson - Last Filed: 06/04/21 10:36> Assessment and Plan: wbc 19.9>15.2. According to patient's mother she has a chronic elevated WBC will call over to Dr. Biggs office to get her baseline WBC Rocephin discontinued <ANTHONY Edmondson-C - Last Filed: 06/04/21 10:36> (4) Alcohol abuse: Code(s): F10.10 - Alcohol abuse, uncomplicated <Alka Hernández MEENAKSHI - Last Filed: 06/04/21 10:36> Status: Acute <MEENAKSHI Edmondson - Last Filed: 06/04/21 10:36> Assessment and Plan: Patient admits to alcohol use More used and abuse <Alka Hernández MEENAKSHI - Last Filed: 06/04/21 10:36> (5) Hypomagnesemia: Code(s): E83.42 - Hypomagnesemia <Alka Hernández MEENAKSHI - Last Filed: 06/04/21 10:36> Status: Acute <Alka Hernández MEENAKSHI - Last Filed: 06/04/21 10:36> Assessment and Plan: Magnesium 1.6>1.9 Replace with supplement <Alka Hernández MEENAKSHI - Last Filed: 06/04/21 10:36> (6) Substance abuse: Code(s): F19.10 - Other psychoactive substance abuse, uncomplicated <Alka Hernández MEENAKSHI - Last Filed: 06/04/21 10:36> Status: Acute <Alka Hernández MEENAKSHI - Last Filed: 06/04/21 10:36> Assessment and Plan: Positive for marijuana Educated on cessation Patient does have a medical marijuana license to treat anxiety with marijuana <Alka Hernández MEENAKSHI - Last Filed: 06/04/21 10:36> (7) Cannabinoid hyperemesis syndrome: Code(s): R11.2 - Nausea with vomiting, unspecified; F12.90 - Cannabis use, unspecified, uncomplicated <Alka Hernández TERRELLCeleste - Last Filed: 06/04/21 10:36> Status: Acute <Alka Hernández MEENAKSHI - Last Filed: 06/04/21 10:36> Assessment and Plan: Tested positive for cannabis Chronic cannabis use capsaicin and showers ordered <Alka Hernández SMOG TECHNICIAN-C - Last Filed: 06/04/21 10:36> DS: Summary Hospital Course Reason for hospitalization: Nausea vomiting diarrhea <Alka Hernández, SMOG TECHNICIAN-C - Last Filed: 06/04/21 10:36> Hospital Course: this is a 20-year-old female who presented to urgent care with nausea vomiting. Patient has a past medical history of anxiety, diarrhea,and gout. According to patient she was at a [employer] party drinking [employer], she is a chronic marijuana smoker due to anxiety. Jos
[2021-06-04 07:41] VITALS: BP 102/63; PULSE 96; RESP 16; TEMP 36.9; O2SAT 98
[2021-06-04] MEDS: ACETAMINOPHEN 325 MG TABLET 650 MG PO (08:59)
--- NOTE | 2021-06-04 10:45 | PC.NURSE ---
Discharge instructions reviewed with patient, she verbalizes understanding. Patient ambulated off floor, picked up by parent.
--- NOTE | 2021-06-11 10:29 | PC.NURSE ---
Unable to contact for discharge call back.
== END 2021-06-04 10:50 | disposition home or self-care (01) ==
LOC: CHSED 08:21 → CHS2ND 13:30
PROVIDERS: Admitting Provider Emergency Medicine; Emergency Provider Emergency Medicine; PCP Internal Medicine; Visit Provider Nurse Practitioner
DX: R11.2 Nausea with vomiting, unspecified (principal); F10.10 Alcohol abuse, uncomplicated; F12.90 Cannabis use, unspecified, uncomplicated; E87.2 Acidosis; E83.42 Hypomagnesemia; E04.9 Nontoxic goiter, unspecified; F41.9 Anxiety disorder, unspecified
CPT/HCPCS: 36415; 71046; 74177; 80048; 80053; 80307; 81001; 81025; 83036; 83605; 83690; 83735; 84443; 85025; 85027; 96361; 96365; 96366; 96367; 96374; 96375; 96376; 99285; A9270; G0378; G0379; J0696; J0780; J2060; J2405; J3411; J3475; J7030; J7120; Q9967

== ENCOUNTER 2021-09-29 07:48 | Observation (INO) | payer SELFPAY ==
--- NOTE | ~2021-09-29 | CT_ITS ---
EXAMINATION: CT abdomen pelvis w con DATE: 09/29/2021 10:45 INDICATION: Mid abdominal pain. Nausea and vomiting. TECHNIQUE: Computed tomography (CT) of the abdomen and pelvis was performed with 100 mL Omnipaque 350 intravenous contrast. Automated exposure control and iterative reconstruction technique were employe d. The dose-length product was 196.33 mGy-cm. COMPARISON: CT abdomen and pelvis 06/03/2021 FINDINGS: The visualized portions of the lung bases are clear without pneumonia or pleural effusion. The liver, gallbladder, spleen, pancreas, adrenal glands, and kidneys are normal. There is an intraut erine device in expected position. There are no dilated loops of bowel. The appendix is not well visu alized. There are no pathologically enlarged lymph nodes. There is physiologic fluid in the pelvis. T here is mild thoracic spondylosis. IMPRESSION: 1. No etiology for the patient's symptoms. Reviewed, dictated and finalized at location A. T INSTRUCTOR
[2021-09-29 08:04] VITALS: BP 113/76; PULSE 70; RESP 20; TEMP 36.9; O2SAT 98
[2021-09-29] MEDS: ONDANSETRON INJ 4 MG/2 ML VIAL IV PUSH ×3 (08:19→13:19)
[2021-09-29] MEDS: SODIUM CHLORIDE 0.9% IV 1,000 ML 999 ML IV CONT (08:19)
[2021-09-29] MEDS: PANTOPRAZOLE SODIUM IV 40 MG VIAL IV PUSH (08:19)
[2021-09-29 08:30] LABS: Basophils Absolute Auto 0.04 K/mm3 (0.00-0.10); Basophils Percent Auto 0.3 % (0.0-1.0); Eosinophils Absolute Auto 0.02 K/mm3 (0.02-0.50); Eosinophils Percent Auto 0.2 % (1.0-6.0); Hematocrit 43.3 % (35.0-49.0); Hemoglobin 14.6 g/dL (12.0-15.0); Immature Granulocyte Absolute 0.07 K/mm3 (0.00-0.00); Immature Granulocyte Percent A 0.6 % (0.0-0.0); Lymphocytes Absolute Auto 1.83 K/mm3 (1.10-4.50); Mean Corpuscular HGB Conc 33.7 g/dL (32.0-36.0); Mean Corpuscular Hemoglobin 31.1 pg (27.0-31.0); Mean Corpuscular Volume 92.3 fL (78.0-102.0); Mean Platelet Volume 10.2 fl (9.2-11.8); Monocytes Absolute Auto 0.31 K/mm3 (0.10-0.90); Monocytes Percent Auto 2.5 % (2.0-11.0); Neutrophils Absolute Auto 9.9 K/mm3 (1.7-7.2); Neutrophils Percent Auto 81.4 % (50.0-70.0); Platelet Count Result 337 K/mm3 (150-420); Red Blood Count 4.69 M/mm3 (4.20-5.40); Red Cell Distribution Width 11.8 % (11.6-14.4); White Blood Count 12.2 K/mm3 (4.8-10.8)
[2021-09-29 08:45] LABS: Alanine Aminotransferase 23 U/L (14-59); Albumin Level 4.5 g/dL (3.4-5.0); Alkaline Phosphatase 96 U/L (46-116); Anion Gap 16 mmol/L (8-16); Aspartate Amino Transferase 18 U/L (15-37); Bilirubin,Total 0.5 mg/dL (0.00-1.00); Blood Urea Nitrogen 6 mg/dL (7-18); Calcium 9.7 mg/dL (8.5-10.1); Carbon Dioxide 23 mmol/L (21-32); Chloride 101 mmol/L (98-108); Estimated CRCL calculation 70 ml/min; Estimated Glomerular Filt Rate > 60; Glucose 154 mg/dL (70-99); Osmolality Calculated 290 mOsm/kg (285-295); Potassium 3.9 mmol/L (3.5-5.1); Sodium 140 mmol/L (136-145); Total Protein 7.9 g/dL (6.4-8.2)
[2021-09-29 08:48] LABS: Ethanol < 3 mg/dL (0-6)
[2021-09-29 08:51] LABS: Lactic Acid Reflex 4.4 mmol/L (0.4-2.0)
[2021-09-29 09:06] LABS: SARS-CoV-2 RNA PCR Negative (Negative)
[2021-09-29 09:40] LABS: Appearance Urine Clear (Clear); Bilirubin Urine Negative (Negative); Color Urine Light Yellow (Yellow); Glucose Urine UA Negative (Negative); Ketones Urine Negative (Negative); Leukocyte Esterase Ur 3+ (Negative); Nitrate Urine Negative (Negative); Protein Urine Negative (Negative); Urobilinogen Urine 0.2 mg/dL (0.2-1.0); pH Urine 8.5 (5.0-8.0)
[2021-09-29 09:45] LABS: Add Urine Microscopic? YES; Blood Urine Trace-Intact (Negative); RBC Urine 0-2 /hpf (0-2); Squamous Epithelial Cell Urine Moderate /hpf (Few)
[2021-09-29 09:46] LABS: Bacteria Urine 2+ /hpf
[2021-09-29 09:46] LABS: Amphetamine Screen Urine Negative (Negative); Barbiturate Screen Urine Negative (Negative); Benzodiazepines Screen Urine Negative (Negative); Cannabinoid Screen Urine Positive (Negative); Cocaine Screen Urine Negative (Negative); Methadone Screen Urine Negative (Negative); Opiate Screen Urine Negative (Negative); Phencyclidine Screen Urine Negative (Negative)
--- NOTE | 2021-09-29 10:08 | ED.NAVMDI ---
HPI - Nausea/Vomiting/Diarrhea General Chief complaint: Nausea/Vomiting/Diarrhea Stated complaint: vomiting Source: patient Mode of arrival: ambulatory Limitations: no limitations History of Present Illness HPI Narrative: this is a 21-year-old female presents with nausea vomiting with epigastric discomfort with some episode drinking last night 3 to 4 drinks has a history of ulcer disease, currently no fever or chills patient is afebrile has some epigastric tenderness with episodes of nausea and vomiting and diarrhea. Currently there is no chest pain no shortness of breath, there is some dysuria with no hematuria no flank pain. MD elicited complaint: nausea, vomiting and abdominal pain Pertinent past history: anorexia Onset (ago): hour(s) Description of vomiting: watery Associated abdominal pain: Yes Location of pain: epigastric Related Data Home Medications Medication Instructions Recorded Confirmed No Home Medications 09/29/21 09/29/21 Allergies Allergy/AdvReac Type Severity Reaction Status Date / Time Penicillins Allergy Severe Unknown Verified 09/29/21 08:10 Sulfa (Sulfonamide Allergy Unknown Verified 09/29/21 08:10 Antibiotics) Review of Systems Review of Systems: All systems reviewed & are unremarkable except as noted in HPI and below PMFSH Past Medical History Medical History Adnexal fullness Anxiety Body mass index [BMI] pediatric, less than 5th percentile for age (01/30/18) Diarrhea Encounter for IUD insertion Encounter for visit Encounter for test, result negative Encounter for supervision of normal first , second trimester Encounter for supervision of normal first , third trimester Goiter IUD check up Pelvic pain in female Supervision of high risk in third trimester Supervision of other high risk pregnancies, second trimester Vaginal bleeding Surgical History Surgical History No pertinent past surgical history Family History Family History Grandparent Diabetes mellitus Hypertension Other Family history of malignant neoplasm of cervix Social History Social History Smoking status: Never smoker Alcohol intake: current Drinks per week: 1 Substance use: current Substance use type: marijuana Last use: daily for anxiety Gender identity (if verbalized by the patient): Female Spiritual care concerns: No Exam Const: General: no acute distress and alert Orientation/consciousness: patient oriented x3 HENMT: Head: normal to inspection Eyes: Pupils: Equal, round and reactive pupils present EOM: EOMs intact bilaterally Neck: Neck: normal visual inspection, no lymphadenopathy and no meningeal signs Chest: Chest palpation & inspection: normal inspection of the chest Resp: Effort & Inspection: normal respiratory effort Cardio: Rate: regular rate Rhythm: regular rhythm GI: GI Palp: Yes Soft to palpation and Yes Tenderness to palpation present (GI) ( Epigastric) : General: Yes no CVA tenderness Urinary Catheter: Urinary Catheter: patent and draining Back/Spine/Pelvis: Back: no CVA tenderness Neuro: General: patient oriented x3 Extrem: General: normal to inspection and no pedal edema Psych: Mental Status: mental status grossly normal Affect: normal affect Course Course Emergency Course: labs reviewed with patient patient was given Zofran and continues have some nausea currently no recent vomiting after the 2nd dose of Zofran and IV fluids labs showing a lactic acid level of 4.4 indicating patient dehydrated and UA evaluated and patient with urinary tract infection. Vital Signs Vital signs: Vital Signs Temperature 36.9 C 09/29/21 08:04 Pulse Rate 70 09/29/21 08:04 Respirator
[2021-09-29 10:22] LABS: Urine Pregnancy Test Negative
[2021-09-29 10:23] LABS: Pregnancy On Board Control Positive
[2021-09-29] MEDS: METOCLOPRAMIDE HCL INJ 10 MG/2 ML VIAL IV PUSH ×2 (10:59→16:41)
[2021-09-29 11:27] LABS: Reflex Lactic Acid Yes or No Add Lactic
[2021-09-29 11:59] LABS: Lactic Acid 3.5 mmol/L (0.4-2.0)
[2021-09-29 12:10] VITALS: BP 118/72; PULSE 72; RESP 20; O2SAT 98
[2021-09-29 12:15] VITALS: BP 122/79; PULSE 87; RESP 19; TEMP 36.4; O2SAT 100
--- NOTE | 2021-09-29 12:15 | PC.NURSE ---
Pt brought to [id number] from ED via wheelchair. Pt resting in bed with LEAD DIE MOLDER at bedside. Vitals obtained and pt oriented to environment. Cell phone and clothing at bedside. All questions answered at present time.
--- NOTE | 2021-09-29 12:19 | PM.IMHP ---
H&P: HPI History of Present Illness Date/Time: 09/29/21 12:19 Black Collado is a 21 year old female who is being admitted under Observation for Abdominal Pain, Vomiting after having consumed 1-2 beers around midnight last night. Pt states that she does not tolerate EtOH well. She has a history of PUD and knows that EtOH causes abdominal pain and vomiting for her. She states she has had diarrhea for a couple days which is clear liquid. Her last solid oral intake was yesterday. She is NOT currently on any medications for PUD and she only has a PMHx of Anxiety. Pt is having dry heaving in the room during interview and examination. Her epigastric pain is a 6/10. Pt denies fever, chills, chest pain, difficulty breathing, muscle or body aches, no ill exposure or contact. Chief Complaint: Vomiting and Abdominal pain Review of Systems Review of Systems: All systems reviewed & are unremarkable except as noted in HPI and below PMFSH Past Medical History Medical History Adnexal fullness Anxiety Body mass index [BMI] pediatric, less than 5th percentile for age (01/30/18) Diarrhea Encounter for IUD insertion Encounter for visit Encounter for test, result negative Encounter for supervision of normal first , second trimester Encounter for supervision of normal first , third trimester Goiter IUD check up Pelvic pain in female Supervision of high risk in third trimester Supervision of other high risk pregnancies, second trimester Vaginal bleeding Surgical History Surgical History No pertinent past surgical history Family History Family History Grandparent Diabetes mellitus Hypertension Other Family history of malignant neoplasm of cervix Social History Social History Smoking status: Never smoker Alcohol intake: current Drinks per week: 1 Substance use: current Substance use type: marijuana Last use: daily for anxiety Gender identity (if verbalized by the patient): Female Spiritual care concerns: No Meds Home Medications and Allergies Home Medications Medication Instructions Recorded Confirmed Type No Home Medications 09/29/21 09/29/21 History Allergies Allergy/AdvReac Type Severity Reaction Status Date / Time Penicillins Allergy Severe Unknown Verified 09/29/21 08:10 Sulfa (Sulfonamide Allergy Unknown Verified 09/29/21 08:10 Antibiotics) Vital Signs Vital Signs - 24 hr 09/29/21 08:04 Temperature 98.5 F Pulse Rate 70 Respiratory Rate 20 Blood Pressure 113/76 Pulse Oximetry 98 Exam Const: General: cooperative, well developed, alert, awake, Physically active, ill appearing, tired appearing and uncomfortable Nutritional Appearance: underweight Resp: Effort & Inspection: normal respiratory effort and no cough Auscultation: clear to auscultation bilaterally, no crackles, no rales, no rhonchi and no wheezes Cardio: Jugular venous distension: no JVD Rate: regular rate Heart sounds: S1 normal heart sound present and S2 normal heart sound present GI: GI Palp: Yes abdominal tenderness, Yes Soft to palpation, Yes Tenderness to palpation present (GI) (epigastric) and No Guarding due to palpation present (GI) Auscultation: Hypoactive bowel sounds present Skin: General skin exam: dry skin and pallor Neuro: General: oriented to person, oriented to place and oriented to time Cranial nerves: Yes CN's II-XII intact bilaterally (grossly intact) Cognition (Neuro): normal cognition Speech: normal speech Extrem: General: normal to inspection, full ROM and no pedal edema Psych: Mental Status: mental status grossly normal Speech and movement: Normal speech and movement present Attitude: cooperative Thought process: Marlys
[2021-09-29] MEDS: PROCHLORPERAZINE EDISYLATE 10 MG/2 ML VIAL IV PUSH (13:15)
[2021-09-29] MEDS: SODIUM CHLORIDE 0.9% IV 1,000 ML 100 ML IV CONT ×2 (13:18→23:19)
[2021-09-29 16:15] VITALS: BP 118/74; PULSE 74; RESP 16; TEMP 36.7; O2SAT 97
[2021-09-29 18:40] VITALS: BMI 18.7
[2021-09-29] MEDS: NITROFURANTOIN MONOHYD MACROCR 100 MG CAP PO (21:23)
[2021-09-29 23:26] VITALS: BP 98/68; PULSE 98; RESP 18; TEMP 37; O2SAT 98
[2021-09-30] MEDS: METOCLOPRAMIDE HCL INJ 10 MG/2 ML VIAL IV PUSH ×2 (00:08→05:59)
--- NOTE | 2021-09-30 00:47 | PC.NURSE ---
Pt resting comfortably and awake in bed at time of assessment. Pt has IVF infusing as per order, denies any nausea at this time and reports the Macrobid pill she is getting seems to be working. Pt's VSS and call puentes within reach. Encouraged pt to call if needed.
--- NOTE | 2021-09-30 02:07 | PC.NURSE ---
Pt sleeping, no distress noted, RR even and nonlabored.
--- NOTE | 2021-09-30 04:52 | PC.NURSE ---
Pt sleeping, no changes, no distress noted, IVF infusing as per order. Call puentes in reach of pt.
[2021-09-30 05:47] LABS: Basophils Absolute Auto 0.02 K/mm3 (0.00-0.10); Basophils Percent Auto 0.1 % (0.0-1.0); Eosinophils Absolute Auto 0.01 K/mm3 (0.02-0.50); Eosinophils Percent Auto 0.1 % (1.0-6.0); Hemoglobin 12.4 g/dL (12.0-15.0); Immature Granulocyte Absolute 0.09 K/mm3 (0.00-0.00); Immature Granulocyte Percent A 0.5 % (0.0-0.0); Lymphocytes Absolute Auto 2.18 K/mm3 (1.10-4.50); Lymphocytes Percent Auto 13.1 % (18.0-42.0); Mean Corpuscular HGB Conc 33.5 g/dL (32.0-36.0); Mean Corpuscular Hemoglobin 31.2 pg (27.0-31.0); Mean Platelet Volume 10.6 fl (9.2-11.8); Monocytes Absolute Auto 1.44 K/mm3 (0.10-0.90); Monocytes Percent Auto 8.6 % (2.0-11.0); Neutrophils Percent Auto 77.6 % (50.0-70.0); Platelet Count Result 266 K/mm3 (150-420); Red Blood Count 3.98 M/mm3 (4.20-5.40); Red Cell Distribution Width 11.9 % (11.6-14.4); White Blood Count 16.7 K/mm3 (4.8-10.8)
--- NOTE | 2021-09-30 05:59 | PC.NURSE ---
Pt resting comfortably, reports feeling better and has no nausea or cramping at this time. Pt wanting to know when she will be leaving today. Advised next shift and MARKETING DEVELOPMENT MANAGER will decide sometime this morning.
[2021-09-30 06:00] LABS: Alanine Aminotransferase 18 U/L (14-59); Albumin Level 3.7 g/dL (3.4-5.0); Alkaline Phosphatase 79 U/L (46-116); Anion Gap 10 mmol/L (8-16); Aspartate Amino Transferase 15 U/L (15-37); Bilirubin,Total 0.8 mg/dL (0.00-1.00); Blood Urea Nitrogen 6 mg/dL (7-18); Calcium 8.7 mg/dL (8.5-10.1); Carbon Dioxide 26 mmol/L (21-32); Chloride 105 mmol/L (98-108); Estimated CRCL calculation 87 ml/min; Estimated Glomerular Filt Rate > 60; Glucose 95 mg/dL (70-99); Osmolality Calculated 289 mOsm/kg (285-295); Potassium 3.3 mmol/L (3.5-5.1); Sodium 141 mmol/L (136-145); Total Protein 6.6 g/dL (6.4-8.2)
[2021-09-30 06:09] LABS: Lactic Acid Reflex 0.9 mmol/L (0.4-2.0)
[2021-09-30 08:00] VITALS: BP 117/92; PULSE 93; RESP 18; TEMP 36.4; O2SAT 98
--- NOTE | 2021-09-30 08:33 | PM.DS ---
DS: Admitting Diagnosis Discharge Date 09/30/2021 Pt left AMA even though she was just about to be rounded on by Dr. Marcos. <CHECO Coyne - Last Filed: 09/30/21 09:19> Admitting Diagnosis Cannabinoid Hyperemesis Syndrome, Dehydration, UTI, Nausea and Vomiting, Lactic Acidosis. <CHECO Coyne - Last Filed: 09/30/21 09:19> DS: Discharge Diagnosis Discharge Diagnosis (1) UTI (urinary tract infection): Code(s): N39.0 - Urinary tract infection, site not specified <CHECO Coyne - Last Filed: 09/30/21 09:19> Status: Acute <Saji DelvinCHECO Parker - Last Filed: 09/30/21 09:19> Assessment and Plan: Macrobid 100 mg PO BID, 3+ LE, no flank or lower abdominal pain, Pt denies dysuria at this time. 09/30/2021 Will continue Macrobid on DC. <CHECO Coyne - Last Filed: 09/30/21 09:19> (2) Nausea and vomiting: Qualifiers: Vomiting Intractability: non-intractable Vomiting type: unspecified Qualified Code(s): R11.2 - Nausea with vomiting, unspecified <CHECO Coyne - Last Filed: 09/30/21 09:19> Code(s): R11.2 - Nausea with vomiting, unspecified <CHECO Coyne - Last Filed: 09/30/21 09:19> Status: Acute <CHECO Coyne - Last Filed: 09/30/21 09:19> Assessment and Plan: IVF 1L NS in ER with NS @ 100 ml/h at this time. Protonix, Reglan Q6H scheduled, will give GI cocktail after Zofran and Reglan administered 09/30/2021 Pt had a little nausea this AM, She is tolerating her Full Liquids well, Advanced to Regular Diet for Breakfast and she tolerated this well. <CHECO Coyne - Last Filed: 09/30/21 09:19> (3) Dehydration: Code(s): E86.0 - Dehydration <Saji DelvinCHECO Parker - Last Filed: 09/30/21 09:19> Status: Acute <Saji DelvinCHECO Parker - Last Filed: 09/30/21 09:19> Assessment and Plan: IVF NS @ 100ml/h, NPO at this time until N/V better controlled 09/30/2021 Tolerating PO fluids, No reported diarrhea <CHECO Coyne - Last Filed: 09/30/21 09:19> (4) Cannabinoid hyperemesis syndrome: Code(s): R11.2 - Nausea with vomiting, unspecified; F12.90 - Cannabis use, unspecified, uncomplicated <CHECO Coyne - Last Filed: 09/30/21 09:19> Status: Acute <Saji DelvinCHECO Parker - Last Filed: 09/30/21 09:19> Assessment and Plan: This is a potential for Pt's current vomiting issues. 09/30/2021 Discussed this with Pt <CHECO Coyne - Last Filed: 09/30/21 09:19> (5) Acidosis, lactic: Code(s): E87.2 - Acidosis <CHECO Coyne - Last Filed: 09/30/21 09:19> Status: Acute <Saji DelvinCHECO Parker - Last Filed: 09/30/21 09:19> Assessment and Plan: Initially 4.4 now 3.5 after IVF bolus 09/30/2021 0.9 this AM. <CHEOC Coyne - Last Filed: 09/30/21 09:19> DS: Summary Hospital Course Hospital Course: Improved N/V, no more abd pain <CHECO Coyne - Last Filed: 09/30/21 09:19> Time Spent with Patient Time attestation: Total time spent providing and/or coordinating discharge services: < 30 minutes <CHECO Coyne - Last Filed: 09/30/21 09:19> Exam Const: General: cooperative, healthy appearing, comfortable, no acute distress, well developed, alert, awake and Physically active <CHECO Coyne - Last Filed: 09/30/21 09:19> Nutritional Appearance: underweight <CHECO Coyne - Last Filed: 09/30/21 09:19> Resp: Effort & Inspection: normal respiratory effort <CHECO Coyne - Last Filed: 09/30/21 09:19> Auscultation: clear to auscultation bilaterally <CHECO Coyne - Last Filed: 09/30/21 09:19> Cardio: Rate: regular rate <CHECO Coyne - Last Filed: 09/30/21 09:19> Heart sounds: S1 normal heart sound present and S2 normal heart sound present <CHECO Coyne
--- NOTE | 2021-09-30 09:05 | PC.NURSE ---
Patient activated call light, requesting ice. SN took ice to patient, patient states she is finished with her breakfast tray, asked to have IV site removed. SN advised patient that IV site will be left in place until discharge. Patient inquired when she would get to leave, states Johan said I could leave once I ate. SN explained that MD would come up from ED for rounds and must agree with discharge plan. Patient states well isn't there a way I can sign myself out now, cause I have things to do. Johan BANDAGE WINDING MACHINE OPERATOR and charge nurse notified patient requests to sign out AMA.
--- NOTE | 2021-09-30 09:23 | PC.NURSE ---
Patient signed AMA paperwork, waited and spoke to doctor. Was to be discharged. Patient left room before SN came in with medication and discharge paperwork.
--- NOTE | 2021-09-30 09:26 | PC.NURSE ---
0930 attempted to call patient to inform of prescriptions sent to [facility] in [place].
--- NOTE | 2021-10-03 14:34 | PC.NURSE ---
Pt left before receiving discharge instructions. Pt asked why she was vomiting, instructional writer instructed to discuss with her PCP.
== END 2021-09-30 09:20 | disposition home or self-care (01) ==
LOC: CHSED 11:31 → CHS2ND 11:59
PROVIDERS: Admitting Provider Emergency Medicine; Emergency Provider Emergency Medicine; PCP Internal Medicine; Visit Provider Emergency Medicine
DX: R11.2 Nausea with vomiting, unspecified (principal); F12.90 Cannabis use, unspecified, uncomplicated; E86.0 Dehydration; E87.2 Acidosis; N39.0 Urinary tract infection, site not specified; F41.9 Anxiety disorder, unspecified; E04.9 Nontoxic goiter, unspecified; Z20.822 Contact with and (suspected) exposure to COVID-19
CPT/HCPCS: 36415; 74177; 80053; 80307; 81001; 81025; 83605; 85025; 87086; 87088; 96361; 96374; 96375; 96376; 99285; A9270; C9113; C9803; G0378; G0379; J0780; J2405; J2765; J7030; Q9967; U0003; U0005

== ENCOUNTER 2021-10-24 07:32 | Emergency (ER) | payer OTHER, SELFPAY ==
--- NOTE | ~2021-10-24 | XR_ITS ---
EXAMINATION: XR chest 1V portable DATE: 10/24/2021 08:48 INDICATION: Vomiting. TECHNIQUE: A single frontal view of the chest was obtained. COMPARISON: Chest 2 views 06/03/2021, CT abdomen and pelvis 09/29/2021 FINDINGS: The chest demonstrates clear lungs without pneumonia, pleural effusion, or pneumothorax. Th e heart size is normal. IMPRESSION: 1. No acute cardiopulmonary disease. Reviewed, dictated and finalized at location A. CHIPPER
[2021-10-24 07:40] VITALS: BP 114/78; PULSE 106; RESP 20; TEMP 37.3; O2SAT 99
[2021-10-24] MEDS: SODIUM CHLORIDE 0.9% IV 1,000 ML 999 ML IV CONT (08:00)
--- NOTE | 2021-10-24 08:02 | ED.GENADULT ---
HPI - General Adult General Chief complaint: Upper Respiratory Infection Stated complaint: COUGH VOMITING Source: patient Mode of arrival: ambulatory Limitations: no limitations History of Present Illness HPI narrative: Black is a 21F with a PMH of substance abuse that presented to the ED with nausea, blood tinged vomit and diarrhea for a few days. Her family is on quarantine for COVID. She denies any melena, hematochezia, hematemesis, CP or SOB. Related Data Allergies Allergy/AdvReac Type Severity Reaction Status Date / Time Penicillins Allergy Severe Unknown Verified 09/29/21 08:10 Sulfa (Sulfonamide Allergy Unknown Verified 09/29/21 08:10 Antibiotics) Review of Systems Constitutional: Constitutional: Reports fever(s) Comments: a fever a few days ago Eyes: Eyes: Reports no additional eye complaints ENT: Reports system reviewed and no additional complaints, except as documented Cardiovascular: Cardiovascular: Reports no additional cardiovascular complaints Respiratory: Respiratory: Reports cough Gastrointestinal: Gastrointestinal: Reports as per HPI Genitourinary: Genitourinary: Reports no additional female genitourinary complaints Musculoskeletal: Musculoskeletal: Reports no additional musculoskeletal complaints Integumentary/Breasts: Skin/Breast: Reports system reviewed and no additional complaints, except as docu Neurologic: Reports system reviewed and no additional complaints, except as documented Psychiatric: Psychiatric: Reports no additional psychiatric complaints Endocrine: Endocrine: Reports no additional endocrine complaints Hematologic/Lymphatic: Hematologic/Lymphatic: Reports no additional hematologic/lymphatic complaints Allergic/Immunologic: Allergic/Immunologic: Reports no additional allergic/immunologic complaints [facility] Past Medical History Medical History Adnexal fullness Anxiety Body mass index [BMI] pediatric, less than 5th percentile for age (01/30/18) Diarrhea Encounter for IUD insertion Encounter for visit Encounter for test, result negative Encounter for supervision of normal first , second trimester Encounter for supervision of normal first , third trimester Goiter IUD check up Pelvic pain in female Supervision of high risk in third trimester Supervision of other high risk pregnancies, second trimester Vaginal bleeding Surgical History Surgical History No pertinent past surgical history Family History Family History Grandparent Diabetes mellitus Hypertension Other Family history of malignant neoplasm of cervix Social History Social History Smoking status: Never smoker Alcohol intake: current Drinks per week: 1 Substance use: current Substance use type: marijuana Last use: daily for anxiety Gender identity (if verbalized by the patient): Female Spiritual care concerns: No Exam Const: General: no acute distress and alert Orientation/consciousness: patient oriented x3 Limitations: No altered mental status HENMT: Head: normal to inspection Mouth: Yes Normal oral and palatal mucosa present Other: atraumatic, moist mucous membranes Eyes: Conjunctivae: conjunctivae normal Pupils: Equal, round and reactive pupils present Neck: Neck: normal visual inspection Chest: Chest palpation & inspection: normal inspection of the chest Resp: Effort & Inspection: normal respiratory effort Auscultation: clear to auscultation bilaterally Other: cough present on exam Cardio: Rate: regular rate Rhythm: regular rhythm GI: Inspection: non-distended GI Palp: Yes Soft to palpation, No Tenderness to palpation present (GI) and No Guarding due to palpation present (GI) Other: negativ
[2021-10-24 08:18] LABS: Basophils Absolute Auto 0.02 K/mm3 (0.00-0.10); Basophils Percent Auto 0.3 % (0.0-1.0); Eosinophils Absolute Auto 0.01 K/mm3 (0.02-0.50); Eosinophils Percent Auto 0.1 % (1.0-6.0); Hematocrit 43.4 % (35.0-49.0); Hemoglobin 14.9 g/dL (12.0-15.0); Immature Granulocyte Absolute 0.02 K/mm3 (0.00-0.00); Immature Granulocyte Percent A 0.3 % (0.0-0.0); Lymphocytes Absolute Auto 0.98 K/mm3 (1.10-4.50); Lymphocytes Percent Auto 14.3 % (18.0-42.0); Mean Corpuscular HGB Conc 34.3 g/dL (32.0-36.0); Mean Corpuscular Hemoglobin 31.4 pg (27.0-31.0); Mean Corpuscular Volume 91.6 fL (78.0-102.0); Mean Platelet Volume 10.5 fl (9.2-11.8); Monocytes Absolute Auto 0.61 K/mm3 (0.10-0.90); Monocytes Percent Auto 8.9 % (2.0-11.0); Neutrophils Absolute Auto 5.2 K/mm3 (1.7-7.2); Neutrophils Percent Auto 76.1 % (50.0-70.0); Platelet Count Result 255 K/mm3 (150-420); Red Blood Count 4.74 M/mm3 (4.20-5.40); Red Cell Distribution Width 12.3 % (11.6-14.4); White Blood Count 6.8 K/mm3 (4.8-10.8)
[2021-10-24 08:31] LABS: Alanine Aminotransferase 20 U/L (14-59); Albumin Level 4.4 g/dL (3.4-5.0); Alkaline Phosphatase 90 U/L (46-116); Anion Gap 16 mmol/L (8-16); Aspartate Amino Transferase 23 U/L (15-37); Bilirubin,Total 0.8 mg/dL (0.00-1.00); Blood Urea Nitrogen 9 mg/dL (7-18); Calcium 9.3 mg/dL (8.5-10.1); Carbon Dioxide 24 mmol/L (21-32); Chloride 100 mmol/L (98-108); Estimated Glomerular Filt Rate > 60; Glucose 91 mg/dL (70-99); Osmolality Calculated 288 mOsm/kg (285-295); Potassium 3.8 mmol/L (3.5-5.1); Sodium 140 mmol/L (136-145); Total Protein 8.3 g/dL (6.4-8.2)
[2021-10-24 08:36] LABS: Lactic Acid Reflex 1.9 mmol/L (0.4-2.0)
[2021-10-24] MEDS: ONDANSETRON INJ 4 MG/2 ML VIAL IV PUSH (08:54)
[2021-10-24 09:29] LABS: Influenza A QL RT-PCR Negative (Negative); Influenza B QL RT-PCR Negative (Negative); SARS-CoV-2 RNA PCR Positive (Negative)
--- NOTE | 2021-10-24 09:37 | PC.NURSE ---
pt resting quietly, no vomiting since arrival to er.
[2021-10-24 09:49] VITALS: BP 106/77; PULSE 87; RESP 20; TEMP 37.3; O2SAT 99
== END 2021-10-24 09:53 | disposition home or self-care (01) ==
PROVIDERS: Emergency Provider Family Medicine; PCP Internal Medicine
DX: U07.1 COVID-19 (principal)
CPT/HCPCS: 36415; 71045; 80053; 83605; 85025; 87502; 96361; 96374; 99283; 99284; C9803; J2405; J7030; U0003; U0005

== ENCOUNTER 2022-02-07 15:28 | Outpatient (CLI) | payer OTHER, SELFPAY ==
[2022-02-07 15:44] LABS: Basophils Absolute Auto 0.04 K/mm3 (0.00-0.10); Basophils Percent Auto 0.3 % (0.0-1.0); Eosinophils Absolute Auto 0.02 K/mm3 (0.02-0.50); Eosinophils Percent Auto 0.1 % (1.0-6.0); Hematocrit 43.8 % (35.0-49.0); Hemoglobin 14.5 g/dL (12.0-15.0); Immature Granulocyte Absolute 0.05 K/mm3 (0.00-0.00); Immature Granulocyte Percent A 0.3 % (0.0-0.0); Lymphocytes Absolute Auto 2.01 K/mm3 (1.10-4.50); Lymphocytes Percent Auto 13.8 % (18.0-42.0); Mean Corpuscular HGB Conc 33.1 g/dL (32.0-36.0); Mean Corpuscular Hemoglobin 31.3 pg (27.0-31.0); Mean Corpuscular Volume 94.6 fL (78.0-102.0); Mean Platelet Volume 9.7 fl (9.2-11.8); Monocytes Percent Auto 10.3 % (2.0-11.0); Neutrophils Absolute Auto 10.9 K/mm3 (1.7-7.2); Neutrophils Percent Auto 75.2 % (50.0-70.0); Platelet Count Result 328 K/mm3 (150-420); Red Blood Count 4.63 M/mm3 (4.20-5.40); Red Cell Distribution Width 12.5 % (11.6-14.4); White Blood Count 14.6 K/mm3 (4.8-10.8)
[2022-02-07 16:20] LABS: Alanine Aminotransferase 22 U/L (14-59); Albumin Level 4.2 g/dL (3.4-5.0); Alkaline Phosphatase 88 U/L (46-116); Anion Gap 11 mmol/L (8-16); Aspartate Amino Transferase 17 U/L (15-37); Bilirubin,Total 0.4 mg/dL (0.00-1.00); Blood Urea Nitrogen 7 mg/dL (7-18); CRP 3.5 mg/dL (0.0-0.9); Calcium 9.4 mg/dL (8.5-10.1); Carbon Dioxide 29 mmol/L (21-32); Chloride 101 mmol/L (98-108); Estimated Glomerular Filt Rate > 60; Free T3 2.54 pg/mL (2.18-3.98); Free T4 Free Thyroxine 0.97 ng/dL (0.76-1.46); Glucose 88 mg/dL (70-99); Osmolality Calculated 289 mOsm/kg (285-295); Potassium 4.1 mmol/L (3.5-5.1); Sodium 141 mmol/L (136-145); Thyroid Stimulating Hormone 0.83 uIU/mL (0.36-3.74); Total Protein 7.6 g/dL (6.4-8.2)
[2022-02-10 05:27] LABS: Total Triiodothyronine (T3) 93 ng/dL (76-181)
[2022-02-10 15:22] LABS: T4 Thyroxine 7.2 mcg/dL (5.1-11.9)
== END 2022-02-07 15:29 | disposition home or self-care (01) ==
LOC: CHSLAB 15:31
PROVIDERS: PCP Internal Medicine; Visit Provider Nurse Practitioner Family
DX: E04.1 Nontoxic single thyroid nodule (principal); R53.83 Other fatigue
CPT/HCPCS: 36415; 80053; 84436; 84439; 84443; 84480; 84481; 85025; 86038; 86140

== ENCOUNTER 2022-02-08 06:36 | Emergency (ER) | payer OTHER, SELFPAY ==
[2022-02-08 06:57] VITALS: BP 112/73; PULSE 96; RESP 20; TEMP 37.4; O2SAT 99
--- NOTE | 2022-02-08 07:02 | ED.GENADULT ---
HPI - General Adult General Chief complaint: Nausea/Vomiting/Diarrhea Stated complaint: Vomiting/ fever/back pain Time Seen by Provider: 02/08/22 06:58 Source: patient Mode of arrival: ambulatory Limitations: no limitations History of Present Illness HPI narrative: Irma is a 21F with a PMH of substance use, and UTIs came to the ED with concerns of a worsening UTI. She was diagnosed yesterday and started on cipro. However, she has had a lot of nausea, vomiting her meds/food, subjective fevers and has pain going into her back.No CP, SOB or syncope reported. Related Data Home Medications Medication Instructions Recorded Confirmed ciprofloxacin HCl 500 mg PO BID 02/08/22 02/08/22 lorazepam 1 mg PO PRN PRN 02/08/22 02/08/22 Allergies Allergy/AdvReac Type Severity Reaction Status Date / Time Penicillins Allergy Severe Hives Verified 02/08/22 07:44 Sulfa (Sulfonamide Allergy Hives Verified 02/08/22 07:45 Antibiotics) Review of Systems Constitutional: Constitutional: Reports chills, Reports fever(s) and Reports weakness Eyes: Eyes: Reports no additional eye complaints ENT: Reports system reviewed and no additional complaints, except as documented Cardiovascular: Cardiovascular: Reports no additional cardiovascular complaints Respiratory: Respiratory: Reports no additional respiratory complaints Gastrointestinal: Gastrointestinal: Reports abdominal pain, Reports nausea and Reports vomiting Genitourinary: Genitourinary: Reports no additional female genitourinary complaints Musculoskeletal: Musculoskeletal: Reports no additional musculoskeletal complaints Integumentary/Breasts: Skin/Breast: Reports system reviewed and no additional complaints, except as docu Neurologic: Reports system reviewed and no additional complaints, except as documented Psychiatric: Psychiatric: Reports no additional psychiatric complaints Endocrine: Endocrine: Reports no additional endocrine complaints Hematologic/Lymphatic: Hematologic/Lymphatic: Reports no additional hematologic/lymphatic complaints Allergic/Immunologic: Allergic/Immunologic: Reports no additional allergic/immunologic complaints [facility] Past Medical History Medical History Adnexal fullness Anxiety Body mass index [BMI] pediatric, less than 5th percentile for age (01/30/18) Diarrhea Encounter for IUD insertion Encounter for visit Encounter for test, result negative Encounter for supervision of normal first , second trimester Encounter for supervision of normal first , third trimester Goiter IUD check up Pelvic pain in female Supervision of high risk in third trimester Supervision of other high risk pregnancies, second trimester Vaginal bleeding Surgical History Surgical History No pertinent past surgical history Family History Family History Grandparent Diabetes mellitus Hypertension Other Family history of malignant neoplasm of cervix Social History Social History Smoking status: Never smoker Alcohol intake: current Drinks per week: 1 Substance use: current Substance use type: marijuana Last use: daily for anxiety Gender identity (if verbalized by the patient): Female Spiritual care concerns: No Exam Const: General: no acute distress and alert Orientation/consciousness: patient oriented x3 Limitations: No altered mental status HENMT: Head: normal to inspection Other: normocephalic, atraumatic Eyes: Conjunctivae: conjunctivae normal Pupils: Equal, round and reactive pupils present Neck: Neck: normal visual inspection Chest: Chest palpation & inspection: normal inspection of the chest Resp: Effort & Inspection: normal respiratory effort Auscultati
[2022-02-08] MEDS: SODIUM CHLORIDE 0.9% IV 1,000 ML 999 ML IV CONT ×2 (07:13→09:00)
[2022-02-08] MEDS: KETOROLAC 15 MG/ML VIAL (*BKC) IV PUSH (07:15)
[2022-02-08] MEDS: ONDANSETRON INJ 4 MG/2 ML VIAL IV PUSH ×2 (07:20→09:00)
[2022-02-08 07:23] LABS: Basophils Absolute Auto 0.04 K/mm3 (0.00-0.10); Basophils Percent Auto 0.2 % (0.0-1.0); Eosinophils Absolute Auto 0.01 K/mm3 (0.02-0.50); Eosinophils Percent Auto 0.1 % (1.0-6.0); Hematocrit 40.9 % (35.0-49.0); Hemoglobin 13.8 g/dL (12.0-15.0); Immature Granulocyte Absolute 0.07 K/mm3 (0.00-0.00); Immature Granulocyte Percent A 0.4 % (0.0-0.0); Lymphocytes Absolute Auto 1.08 K/mm3 (1.10-4.50); Lymphocytes Percent Auto 6.7 % (18.0-42.0); Mean Corpuscular HGB Conc 33.7 g/dL (32.0-36.0); Mean Corpuscular Hemoglobin 31.4 pg (27.0-31.0); Monocytes Absolute Auto 1.11 K/mm3 (0.10-0.90); Monocytes Percent Auto 6.9 % (2.0-11.0); Neutrophils Absolute Auto 13.7 K/mm3 (1.7-7.2); Neutrophils Percent Auto 85.7 % (50.0-70.0); Platelet Count Result 336 K/mm3 (150-420); Red Cell Distribution Width 12.3 % (11.6-14.4); White Blood Count 16.1 K/mm3 (4.8-10.8)
--- NOTE | 2022-02-08 07:25 | PC.NURSE ---
PT IS HAVING ACTIVE EMESIS IN EXAM ROOM. MOTHER AT BEDSIDE. MEDICATIONS ADMINISTERED ORDERED. ABX AWAITING URINE SPECIMEN AT THIS TIME. IVF INFUSING ORDERED WITHOUT DIFFICULTY. VSS PER MONITOR. WILL CONTINUE TO MONITOR.
[2022-02-08 07:39] LABS: Alanine Aminotransferase 22 U/L (14-59); Alkaline Phosphatase 81 U/L (46-116); Anion Gap 13 mmol/L (8-16); Aspartate Amino Transferase 20 U/L (15-37); Bilirubin,Total 0.8 mg/dL (0.00-1.00); Blood Urea Nitrogen 10 mg/dL (7-18); Calcium 9.5 mg/dL (8.5-10.1); Carbon Dioxide 25 mmol/L (21-32); Chloride 100 mmol/L (98-108); Estimated CRCL calculation 73 ml/min; Estimated Glomerular Filt Rate > 60; Glucose 114 mg/dL (70-99); Lipase 82 U/L (73-393); Osmolality Calculated 286 mOsm/kg (285-295); Potassium 4.2 mmol/L (3.5-5.1); Sodium 138 mmol/L (136-145); Total Protein 8.1 g/dL (6.4-8.2)
[2022-02-08 07:40] LABS: Add Urine Microscopic? YES; Appearance Urine Cloudy (Clear); Bilirubin Urine Negative (Negative); Blood Urine 2+ (Negative); Color Urine Light Yellow (Yellow); Glucose Urine UA Negative (Negative); Ketones Urine Trace (Negative); Leukocyte Esterase Ur 2+ (Negative); Nitrate Urine Positive (Negative); Protein Urine 1+ (Negative); Specific Grav Ur 1.015 (1.010-1.020); pH Urine 7.5 (5.0-8.0)
[2022-02-08 07:42] LABS: Pregnancy On Board Control Positive; Urine Pregnancy Test Negative
[2022-02-08 07:42] LABS: CRP 9.7 mg/dL (0.0-0.9)
[2022-02-08 07:43] LABS: Lactic Acid Reflex 1.4 mmol/L (0.4-2.0)
[2022-02-08 07:48] LABS: Bacteria Urine 3+ /hpf; Squamous Epithelial Cell Urine Few /hpf (Few); WBC Urine 31-50 /hpf (0-3)
[2022-02-08 07:55] VITALS: BP 106/65; PULSE 90; RESP 16; O2SAT 98
[2022-02-08] MEDS: LORazepam INJ (*CRX) 2 MG/ML VIAL 0.5 MG IV PUSH (09:02)
[2022-02-08 09:11] VITALS: BP 108/68; PULSE 86; RESP 14; TEMP 36.4; O2SAT 98
--- NOTE | 2022-02-08 09:32 | PC.NURSE ---
PT WAS GIVEN JELLO AND FRUIT FOR PO CHALLENGE PER ERP. PT HAS ATTEMPTED TO EAT 2 BITES OF JELLO, CURRENTLY PLAYING ON CELL PHONE. NAD NOTED. IVF INFUSING ORDERED WITHOUT DIFFICULTY. VSS PER MONITOR. WILL CONTINUE TO MONITOR.
[2022-02-08 10:26] VITALS: BP 106/68; PULSE 80; RESP 14; TEMP 36.4; O2SAT 99
--- NOTE | 2022-02-24 07:07 | PC.NURSE ---
pt has ns infusions x2 first stopped at 0759 and the 2nd stopped at 0947. pt recieved a total of 2000ml.
== END 2022-02-08 10:26 | disposition home or self-care (01) ==
PROVIDERS: Emergency Provider Family Medicine; PCP Internal Medicine
DX: N12 Tubulo-interstitial nephritis, not specified as acute or chronic (principal)
CPT/HCPCS: 36415; 80053; 81001; 81025; 83605; 83690; 85025; 86140; 87040; 96361; 96365; 96375; 99284; J1885; J1956; J2060; J2405; J7030

== ENCOUNTER 2022-02-15 13:18 | Outpatient (CLI) | payer OTHER, SELFPAY ==
--- NOTE | ~2022-02-15 | US_ITS ---
EXAMINATION: US thyroid DATE: 02/15/2022 13:47 INDICATION: Thyroid nodule. TECHNIQUE: Multiple ultrasound images of the thyroid were obtained. COMPARISON: Ultrasound 10/27/2019, 05/21/18 FINDINGS: The right thyroid lobe measures 5.2 x 1.5 x 1.3 cm. The left thyroid lobe measures 5.3 x 1.8 x 1.8 c m. In the right thyroid lobe, there is a 2 mm nodule. In the left thyroid lobe, there is a 4.1 cm mi xed solid and cystic, hypoechoic, [id number] nodule with smooth margin without echogenic foci (T I-RADS TR3). This nodule was measured as 2 nodules on the prior exam and is increased from 3.2 cm on 05/21/18. In the left thyroid lobe, there is a 1.7 cm almost entirely cystic, [id number] nodule wi th small hypoechoic solid component and smooth margin without echogenic foci (TR2). IMPRESSION: 1. Multinodular goiter. Consider ultrasound-guided fine-needle aspiration of the 4.1 cm left thyroid nodule. Reviewed, dictated and finalized at location A. IMPRESSION: 1. Multinodular goiter. Consider ultrasound-guided fine-needle aspiration of th e 4.1 cm left thyroid nodule.
== END 2022-02-15 13:19 | disposition home or self-care (01) ==
LOC: CHSIMG 13:20
PROVIDERS: PCP Internal Medicine; Visit Provider Nurse Practitioner Family
DX: E04.1 Nontoxic single thyroid nodule (principal)
CPT/HCPCS: 76536

== ENCOUNTER 2023-04-02 12:16 | Outpatient (CLI) | payer OTHER, SELFPAY ==
[2023-04-02 13:03] LABS: Alanine Aminotransferase 22 U/L (14-59); Albumin Level 4.9 g/dL (3.4-5.0); Alkaline Phosphatase 96 U/L (46-116); Anion Gap 12 mmol/L (8-16); Aspartate Amino Transferase 20 U/L (15-37); Blood Urea Nitrogen 9 mg/dL (7-18); Calcium 10.1 mg/dL (8.5-10.1); Carbon Dioxide 27 mmol/L (21-32); Chloride 103 mmol/L (98-108); Estimated Glomerular Filt Rate > 60; Glucose 87 mg/dL (70-99); Osmolality Calculated 291 mOsm/kg (285-295); Potassium 4.5 mmol/L (3.5-5.1); Sodium 142 mmol/L (136-145); Total Protein 8.2 g/dL (6.4-8.2)
[2023-04-02 13:13] LABS: HIV 1 P24 AG Negative (Negative); HIV 1/2 AB Negative (Negative)
[2023-04-08 14:19] LABS: Hepatitis A Antibody IgM Nonreactive; Hepatitis B Core Antibody Nonreactive (Nonreactive); Hepatitis B Surface Antigen Nonreactive (Nonreactive); Hepatitis C Signal to Cutoff 0.01 ratio (<1.00); Hepatitis C Virus Antibody Nonreactive (Nonreactive)
== END 2023-04-02 12:17 | disposition home or self-care (01) ==
LOC: CHSLAB 12:18
PROVIDERS: PCP Internal Medicine; Visit Provider Internal Medicine
DX: R10.9 Unspecified abdominal pain (principal); Z20.2 Contact with and (suspected) exposure to infections with a predominantly sexual mode of transmission
CPT/HCPCS: 36415; 80053; 80074; 86703

== ENCOUNTER 2023-04-08 07:08 | Outpatient (CLI) | payer OTHER, SELFPAY ==
--- NOTE | ~2023-04-08 | US_ITS ---
US thyroid INDICATION: Follow-up thyroid nodules. Status post partial thyroidectomy in 2021. TECHNIQUE: Real-time sonographic images of the thyroid gland were obtained. COMPARISON: Ultrasound dated 02/15/2022 FINDINGS: The right thyroid lobe measures 5.1 x 1.6 x 1.6 cm. There are changes of partial left thyro idectomy. The left thyroid lobe measures 1.4 x 0.9 x 0.8 cm. There is normal echotexture and echogeni city throughout the thyroid gland. No discrete nodules identified. Normal vascular flow is present. IMPRESSION: 1. Unremarkable thyroid ultrasound post partial left thyroidectomy. Reviewed, dictated and finalized at location L.
--- NOTE | ~2023-04-08 | US_ITS ---
US abdomen complete EXAMINATION: US Abdomen Complete INDICATION: Right upper quadrant pain PROCEDURE: Realtime High Resolution abdomen ultrasound. COMPARISON: 03/05/2017 FINDINGS: Gallbladder within normal limits. No gallstones, pericholecystic fluid, gallbladder wall t hickening or biliary dilatation. Common bile duct measures 2.2 mm. Liver echotexture within normal limits without focal mass. Pancreas within normal limits. Pancreati c tail is obscured by bowel gas. Spleen is unremarkeable. Renal echotexture is within normal limits bilaterally without hydronephrosis, contour deforming mass or renal stone. Right kidney measures 10.4 cm. Left kidney measures 10.2 cm. Visualized aspects of the aorta and IVC are within normal limits. Portal vein is patent. No sonograph ic Charles's sign indicated by the technologist. IMPRESSION: 1: Normal abdominal ultrasound. Reviewed, dictated and finalized at [facility].
== END 2023-04-08 07:09 | disposition home or self-care (01) ==
LOC: CHSIMG 07:10
PROVIDERS: PCP Internal Medicine; Visit Provider Internal Medicine Endocrinology, Diabetes & Metabolism
DX: R10.9 Unspecified abdominal pain (principal); Z20.2 Contact with and (suspected) exposure to infections with a predominantly sexual mode of transmission; E04.2 Nontoxic multinodular goiter
CPT/HCPCS: 76536; 76700; 87491; 87591

== ENCOUNTER 2023-06-05 08:55 | Outpatient (CLI) | payer OTHER, SELFPAY ==
--- NOTE | ~2023-06-05 | US_ITS ---
US breast RT limited INDICATION: Palpable right breast abnormality TECHNIQUE: Dedicated complete right breast ultrasound including all 4 quadrants in the subareolar loc ation COMPARISON: No prior studies for comparison. FINDINGS: The right breast is composed of normal heterogeneous echotexture without focal solid or cys tic mass. IMPRESSION: 1: Normal right breast ultrasound. BI-RADS CATEGORY 1 - NEGATIVE Reviewed, dictated and finalized at location A.
--- NOTE | ~2023-06-05 | XR_ITS ---
XR tibia fibula RT 2V DATE: 06/05/2023 09:45 INDICATION: Lateral lower right leg pain and bruising for 1.5 months TECHNIQUE: AP and lateral views COMPARISON: None FINDINGS: No fracture or dislocation, periosteal reaction or bone destruction. Normal alignment at th e knee and ankle joints. IMPRESSION: Negative Reviewed, dictated and finalized at location L. IMPRESSION: Negative
== END 2023-06-05 08:56 | disposition home or self-care (01) ==
LOC: CHSIMG 09:01
PROVIDERS: PCP Internal Medicine; Visit Provider Nurse Practitioner Family
DX: M79.661 Pain in right lower leg (principal); N63.10 Unspecified lump in the right breast, unspecified quadrant
CPT/HCPCS: 73590; 76642

== ENCOUNTER 2023-10-21 22:24 | Emergency (ER) | payer SELFPAY ==
--- NOTE | 2023-10-21 22:30 | ED.NAVMDI ---
HPI - Nausea/Vomiting/Diarrhea General Chief complaint: Nausea/Vomiting/Diarrhea Stated complaint: Vomiting Time Seen by Provider: 10/21/23 22:26 Source: patient Mode of arrival: ambulatory Limitations: no limitations History of Present Illness HPI Narrative: 23 year old female presents to the Emergency Department complaining of nausea and vomiting. Onset 4 hours ago. States she gets this type of symptoms periodically. Patient smells of marijuana. Patient states she smokes marijuana daily. MD elicited complaint: vomiting Onset (ago): hour(s) (4) Associated nausea: Yes Associated abdominal pain: Yes (cramping) Location of pain: diffuse Quality: cramping Exacerbating factors: none Relieving factors: none Treatment prior to arrival: none Related Data Home Medications Medication Instructions Recorded Confirmed levothyroxine 25 mcg tablet 25 mcg PO DAILY 10/21/23 10/21/23 lorazepam 0.5 mg tablet 0.5 mg PO BID 10/21/23 10/21/23 Allergies Allergy/AdvReac Type Severity Reaction Status Date / Time Penicillins Allergy Severe Hives Verified 10/21/23 22:29 Sulfa (Sulfonamide Allergy Hives Verified 10/21/23 22:29 Antibiotics) Review of Systems Review of Systems: All systems reviewed & are unremarkable except as noted in HPI and below Constitutional: Constitutional: Reports as per HPI, Denies chills and Denies fever(s) Eyes: Eyes: Reports as per HPI and Reports no additional eye complaints ENT: Reports system reviewed and no additional complaints, except as documented Cardiovascular: Cardiovascular: Reports as per HPI and Reports no additional cardiovascular complaints Respiratory: Respiratory: Reports as per HPI and Reports no additional respiratory complaints Gastrointestinal: Gastrointestinal: Reports as per HPI, Reports abdominal pain, Reports nausea and Reports vomiting Genitourinary: Genitourinary: Reports no additional female genitourinary complaints Musculoskeletal: Musculoskeletal: Reports no additional musculoskeletal complaints Neurologic: Reports numbness (tingling all over) PMFSH Past Medical History Medical History Adnexal fullness Anxiety Body mass index [BMI] pediatric, less than 5th percentile for age (01/30/18) Diarrhea Encounter for IUD insertion Encounter for visit Encounter for test, result negative Encounter for supervision of normal first , second trimester Encounter for supervision of normal first , third trimester Goiter IUD check up Pelvic pain in female Supervision of high risk in third trimester Supervision of other high risk pregnancies, second trimester Vaginal bleeding Surgical History Surgical History No pertinent past surgical history Family History Family History Grandparent Diabetes mellitus Hypertension Other Family history of malignant neoplasm of cervix Social History Social History Smoking status: Never smoker Alcohol intake: current Drinks per week: 1 Substance use: current Substance use type: marijuana Last use: daily for anxiety Gender identity (if verbalized by the patient): Female Spiritual care concerns: No Exam Const: General: alert and ill appearing Nutritional Appearance: thin Orientation/consciousness: patient oriented x3 Limitations: no limitations HENMT: Head: normal to inspection Ears: external ears normal Face/Nose/Sinus: Normal external nose present Face and sinus: normal facial exam Mouth: Yes Normal oral and palatal mucosa present Eyes: Conjunctivae: conjunctivae normal Pupils: Equal, round and reactive pupils present EOM: EOMs intact bilaterally Direct Ophthalmoscopy: no photophobia Neck: Neck: normal visual inspection Chest: Chest palpa
[2023-10-21 22:32] VITALS: BP 126/92; PULSE 99; RESP 22; TEMP 36; O2SAT 100
[2023-10-21 22:48] LABS: Appearance Urine Slightly Cloudy (Clear); Bilirubin Urine 1+ (Negative); Blood Urine Trace-Intact (Negative); Color Urine Yellow (Yellow); Glucose Urine UA Negative (Negative); Ketones Urine 3+ (Negative); Leukocyte Esterase Ur 2+ LEU/UL (Negative); Nitrate Urine Negative (Negative); Protein Urine 1+ (Negative); pH Urine 6.5 (5.0-8.0)
[2023-10-21 22:53] LABS: Add Urine Microscopic? YES; Amorphous Sediment Urine Few; Bacteria Urine 1+ /hpf; Mucus Urine Heavy /lpf; Squamous Epithelial Cell Urine Many /hpf (Few)
[2023-10-21 22:55] LABS: Pregnancy On Board Control Positive; Urine Pregnancy Test Negative
[2023-10-21] MEDS: ONDANSETRON INJ 4 MG/2 ML VIAL IV PUSH ×2 (23:11→23:47)
[2023-10-21] MEDS: SODIUM CHLORIDE 0.9% IV 1,000 ML 999 ML IV CONT (23:11)
[2023-10-21 23:56] LABS: Basophils Absolute Auto 0.02 K/mm3 (0.00-0.10); Basophils Percent Auto 0.1 % (0.0-1.0); Eosinophils Absolute Auto 0.05 K/mm3 (0.02-0.50); Eosinophils Percent Auto 0.3 % (1.0-6.0); Hematocrit 38.7 % (35.0-49.0); Hemoglobin 13.3 g/dL (12.0-15.0); Immature Granulocyte Percent A 0.6 % (0.0-0.0); Lymphocytes Absolute Auto 0.82 K/mm3 (1.10-4.50); Lymphocytes Percent Auto 4.6 % (18.0-42.0); Mean Corpuscular HGB Conc 34.4 g/dL (32.0-36.0); Mean Corpuscular Volume 93.3 fL (78.0-102.0); Monocytes Absolute Auto 0.57 K/mm3 (0.10-0.90); Monocytes Percent Auto 3.2 % (2.0-11.0); Neutrophils Absolute Auto 16.4 K/mm3 (1.7-7.2); Neutrophils Percent Auto 91.2 % (50.0-70.0); Platelet Count Result 328 K/mm3 (150-420); Red Blood Count 4.15 M/mm3 (4.20-5.40); Red Cell Distribution Width 11.9 % (11.6-14.4); White Blood Count 17.9 K/mm3 (4.8-10.8)
[2023-10-21] MEDS: LORazepam INJ (*CRX) 2 MG/ML VIAL 1 MG IV PUSH (23:58)
[2023-10-22 00:11] LABS: Alanine Aminotransferase 18 U/L (14-59); Albumin Level 4.3 g/dL (3.4-5.0); Alkaline Phosphatase 70 U/L (46-116); Anion Gap 16 mmol/L (8-16); Aspartate Amino Transferase 15 U/L (15-37); Bilirubin,Total 1.1 mg/dL (0.00-1.00); Blood Urea Nitrogen 9 mg/dL (7-18); Calcium 8.7 mg/dL (8.5-10.1); Carbon Dioxide 21 mmol/L (21-32); Chloride 99 mmol/L (98-108); Estimated CRCL calculation 62 ml/min; Estimated Glomerular Filt Rate > 60; Glucose 204 mg/dL (70-99); Osmolality Calculated 286 mOsm/kg (285-295); Potassium 3.4 mmol/L (3.5-5.1); Sodium 136 mmol/L (136-145); Total Protein 6.9 g/dL (6.4-8.2)
[2023-10-22 00:16] LABS: Lactic Acid Reflex 3.7 mmol/L (0.4-2.0)
[2023-10-22 00:50] LABS: Influenza A QL RT-PCR Negative (Negative); Influenza B QL RT-PCR Negative (Negative); SARS-CoV-2 RNA PCR Negative (Negative)
[2023-10-22 00:51] LABS: RSV RNA, RT-PCR Negative (Negative)
[2023-10-22] MEDS: NITROFURANTOIN MONOHYD MACROCR 100 MG CAP PO (00:51)
[2023-10-22] MEDS: SODIUM CHLORIDE 0.9% IV 1,000 ML 999 ML IV CONT ×2 (00:55→02:35)
[2023-10-22] MEDS: METOCLOPRAMIDE HCL INJ 10 MG/2 ML VIAL IV PUSH (01:40)
[2023-10-22 02:54] LABS: Reflex Lactic Acid Yes or No Add Lactic
[2023-10-22 03:49] VITALS: BP 112/68; PULSE 82; RESP 18; TEMP 36.6; O2SAT 100
--- NOTE | 2023-10-25 12:58 | PC.NURSE ---
10/25/23 at 1255 pt contacted and macrobid 100mg BID X 7 DAYS CALLED IN TO [facility] IN [place] FOR URINE CULTURE RESULTS
== END 2023-10-22 03:38 | disposition home or self-care (01) ==
PROVIDERS: Emergency Provider Emergency Medicine; PCP Internal Medicine
DX: R11.2 Nausea with vomiting, unspecified (principal); F12.90 Cannabis use, unspecified, uncomplicated; E86.0 Dehydration; N39.0 Urinary tract infection, site not specified; K52.9 Noninfective gastroenteritis and colitis, unspecified; Z79.899 Other long term (current) drug therapy; Z20.822 Contact with and (suspected) exposure to COVID-19
CPT/HCPCS: 36415; 80053; 81001; 81025; 83605; 85025; 87077; 87086; 87088; 87186; 87637; 96361; 96374; 96375; 96376; 99284; A9270; J2060; J2405; J2765; J7030

== ENCOUNTER 2023-11-09 01:01 | Observation (INO) | payer SELFPAY ==
--- NOTE | ~2023-11-09 | CT_ITS ---
EXAMINATION: CT abdomen pelvis w con DATE: 11/09/2023 02:10 INDICATION: Abdominal pain and vomiting TECHNIQUE: Computed tomography (CT) of the abdomen and pelvis was performed with 100 CC Omnipaque 350 intravenous contrast. Automated exposure control and iterative reconstruction technique were employe d. Exam dose: 233.67 mGy-cm total exam DLP. COMPARISON: 04/08/2023 complete abdominal ultrasound examination, reported normal 09/29/2021 CT abdomen pelvis FINDINGS: The lung bases are clear. Normal heart size. No pericardial or pleural effusion. The liver, gallbladder, bile ducts, pancreas, pancreatic duct and spleen as well as adrenal glands an d kidneys are unremarkable. Normal caliber of the abdominal aorta. No intraperitoneal or retroperitoneal or pelvic mass lesion or adenopathy or ascites is detected. There is an IUD within the uterus. There is an approximately 1.6 cm left ovarian corpus luteum cyst. Prominent left pelvic enhancing veins. The urinary bladder is unremarkable. Mild likely physiologic free fluid in the dependent pelvis, zohreh lar to that noted on 09/29/2021. No bowel obstruction or intraperitoneal free air. The appendix is not definitively identified but no evidence of appendicitis is detected. IMPRESSION: IUD within uterus Left ovarian 1.6 cm corpus luteum cyst Reviewed, dictated and finalized at Location [facility]. Reviewed, dictated and finalized at location A. TAL EDITOR
[2023-11-09 01:01] VITALS: BP 137/79; PULSE 65; RESP 18; TEMP 37.2; O2SAT 99
--- NOTE | 2023-11-09 01:10 | ED.ABDPAIN ---
HPI - Abdominal Pain General Chief Complaint: Nausea/Vomiting/Diarrhea Stated Complaint: vomiting Time Seen by Provider: 11/09/23 01:02 Source: patient Mode of arrival: ambulatory Limitations: no limitations History of Present Illness HPI narrative: this is a year female with some episodes of nausea and vomiting, the patient has a history of hyper emesis can avoid syndrome and has been having abdominal pain epigastric with no fever chills no shortness no chest pain no flank pain no dysuria or hematuria. MD elicited complaint: abdominal pain Onset (ago): hour(s) Pain Consistency: constant Location: epigastric Severity: moderate Quality: aching Radiation: epigastric Exacerbating factors: vomiting Related Data Home Medications Medication Instructions Recorded Confirmed levothyroxine 25 mcg tablet 25 mcg PO DAILY 10/21/23 11/09/23 lorazepam 0.5 mg tablet 0.5 mg PO BID 10/21/23 11/09/23 Allergies Allergy/AdvReac Type Severity Reaction Status Date / Time Penicillins Allergy Severe Hives Verified 11/09/23 01:36 Sulfa (Sulfonamide Allergy Hives Verified 11/09/23 01:36 Antibiotics) Review of Systems Review of Systems: All systems reviewed & are unremarkable except as noted in HPI and below PMFSH Past Medical History Medical History Adnexal fullness Anxiety Body mass index [BMI] pediatric, less than 5th percentile for age (01/30/18) Diarrhea Encounter for IUD insertion Encounter for visit Encounter for test, result negative Encounter for supervision of normal first , second trimester Encounter for supervision of normal first , third trimester Goiter IUD check up Pelvic pain in female Supervision of high risk in third trimester Supervision of other high risk pregnancies, second trimester Vaginal bleeding Surgical History Surgical History No pertinent past surgical history Family History Family History Grandparent Diabetes mellitus Hypertension Other Family history of malignant neoplasm of cervix Social History Social History Smoking status: Never smoker Alcohol intake: current Drinks per week: 1 Substance use: current Substance use type: marijuana Last use: daily for anxiety Gender identity (if verbalized by the patient): Female Spiritual care concerns: No Exam Const: General: healthy appearing Nutritional Appearance: well nourished Orientation/consciousness: patient oriented x3 Limitations: no limitations HENMT: Head: normal to inspection Neck: Neck: normal visual inspection, no lymphadenopathy and no meningeal signs Chest: Chest palpation & inspection: normal inspection of the chest Resp: Effort & Inspection: normal respiratory effort Auscultation: clear to auscultation bilaterally Cardio: Rate: regular rate Rhythm: regular rhythm GI: GI Palp: Yes Soft to palpation and Yes Tenderness to palpation present (GI) : General: Yes bladder normal to palpation Skin: General skin exam: normal color Rashes: no rashes Neuro: General: patient oriented x3 and moves all extremities Course Course Emergency Course: Patient with nausea vomiting started on IV and given IV fluids normal saline, for abdominal pain patient received 30mg IV Toradol and for nausea received Zofran IV. CT scan of the abdomen pelvis was performed, labs performed and reviewed. Vital Signs Vital signs: Vital Signs Temperature 37.2 C 11/09/23 01:01 Pulse Rate 65 11/09/23 01:01 Respiratory Rate 18 11/09/23 01:01 Blood Pressure 137/79 11/09/23 01:01 Pulse Oximetry 99 11/09/23 01:01 Oxygen Delivery Room Air 11/09/23 01:01 Temperature 37.2 C 11/09/23 01:01 Pulse Rate 65 11/09/23 01:01 Respirato
[2023-11-09] MEDS: ONDANSETRON INJ 4 MG/2 ML VIAL IV PUSH ×3 (01:22→09:43)
[2023-11-09] MEDS: KETOROLAC 30 MG/ML VIAL (*BKC) IV PUSH (01:22)
[2023-11-09] MEDS: SODIUM CHLORIDE 0.9% IV 1,000 ML 999 ML IV CONT ×2 (01:23→04:11)
[2023-11-09 01:33] LABS: Basophils Absolute Auto 0.03 K/mm3 (0.00-0.10); Basophils Percent Auto 0.3 % (0.0-1.0); Eosinophils Absolute Auto 0.04 K/mm3 (0.02-0.50); Eosinophils Percent Auto 0.4 % (1.0-6.0); Hematocrit 45.6 % (35.0-49.0); Hemoglobin 15.8 g/dL (12.0-15.0); Immature Granulocyte Absolute 0.06 K/mm3 (0.00-0.00); Immature Granulocyte Percent A 0.5 % (0.0-0.0); Lymphocytes Absolute Auto 0.51 K/mm3 (1.10-4.50); Lymphocytes Percent Auto 4.5 % (18.0-42.0); Mean Corpuscular HGB Conc 34.6 g/dL (32.0-36.0); Mean Corpuscular Hemoglobin 31.9 pg (27.0-31.0); Mean Corpuscular Volume 92.1 fL (78.0-102.0); Mean Platelet Volume 10.2 fl (9.2-11.8); Monocytes Absolute Auto 0.62 K/mm3 (0.10-0.90); Monocytes Percent Auto 5.4 % (2.0-11.0); Neutrophils Absolute Auto 10.2 K/mm3 (1.7-7.2); Neutrophils Percent Auto 88.9 % (50.0-70.0); Platelet Count Result 251 K/mm3 (150-420); Red Blood Count 4.95 M/mm3 (4.20-5.40); Red Cell Distribution Width 12.4 % (11.6-14.4); White Blood Count 11.4 K/mm3 (4.8-10.8)
[2023-11-09 01:46] LABS: Lactic Acid Reflex 5.8 mmol/L (0.4-2.0)
[2023-11-09 01:49] LABS: Alanine Aminotransferase 34 U/L (14-59); Albumin Level 4.8 g/dL (3.4-5.0); Alkaline Phosphatase 73 U/L (46-116); Anion Gap 16 mmol/L (8-16); Aspartate Amino Transferase 24 U/L (15-37); Bilirubin,Total 0.6 mg/dL (0.00-1.00); Blood Urea Nitrogen 13 mg/dL (7-18); Calcium 9.8 mg/dL (8.5-10.1); Carbon Dioxide 24 mmol/L (21-32); Chloride 92 mmol/L (98-108); Estimated CRCL calculation 53 ml/min; Estimated Glomerular Filt Rate 50; Glucose 269 mg/dL (70-99); Lipase 22 U/L (16-77); Osmolality Calculated 283 mOsm/kg (285-295); Potassium 3.4 mmol/L (3.5-5.1); Sodium 132 mmol/L (136-145); Thyroid Stimulating Hormone 2.66 uIU/mL (0.36-3.74); Total Protein 8.5 g/dL (6.4-8.2)
[2023-11-09 02:10] LABS: SARS-CoV-2 RNA PCR Positive (Negative)
[2023-11-09 02:13] LABS: Influenza A QL RT-PCR Negative (Negative); Influenza B QL RT-PCR Negative (Negative); RSV RNA, RT-PCR Negative (Negative)
[2023-11-09] MEDS: PANTOPRAZOLE SODIUM IV 40 MG VIAL 80 MG IV PUSH (02:24)
[2023-11-09] MEDS: METOCLOPRAMIDE HCL INJ 10 MG/2 ML VIAL IV PUSH (02:25)
[2023-11-09 04:25] LABS: Reflex Lactic Acid Yes or No Add Lactic
[2023-11-09 04:26] LABS: Appearance Urine Clear (Clear); Bilirubin Urine Negative (Negative); Blood Urine 1+ (Negative); Color Urine Light Yellow (Yellow); Glucose Urine UA 2+ (Negative); Ketones Urine 2+ (Negative); Leukocyte Esterase Ur Negative LEU/UL (Negative); Nitrate Urine Negative (Negative); Protein Urine Trace (Negative); Specific Grav Ur <= 1.005 (1.010-1.020); Urobilinogen Urine 0.2 mg/dL (0.2-1.0); pH Urine 6.5 (5.0-8.0)
[2023-11-09 04:32] LABS: Add Urine Microscopic? YES; Mucus Urine Few /lpf; Squamous Epithelial Cell Urine Few /hpf (Few)
[2023-11-09 04:33] LABS: Pregnancy On Board Control Positive; Urine Pregnancy Test Negative
[2023-11-09 05:41] VITALS: BP 146/100; PULSE 71; RESP 20; TEMP 37.2; O2SAT 100
[2023-11-09 05:44] LABS: Lactic Acid 1.5 mmol/L (0.4-2.0)
[2023-11-09] MEDS: SODIUM CHLORIDE 0.9% IV 1,000 ML 100 ML IV CONT (06:07)
[2023-11-09] MEDS: LORazepam INJ (*CRX) 2 MG/ML VIAL 0.5 MG IV PUSH (06:07)
[2023-11-09] MEDS: MORPHINE SULFATE (*CRX) 2 MG/ML INJ IV PUSH (06:08)
[2023-11-09 06:30] VITALS: BMI 18.5
--- NOTE | 2023-11-09 06:30 | ADMGEN ---
This patient, Black Collado, was admitted to 2nd Floor Room 205-2. Patient/family oriented to hospital policies and general routines including ID bracelet, bed and alarms, visiting hours, pain management, procedures, bathroom and other care routines, personal items, smoking policy, room service/diet, and visiting hours. Information on how to activate the Rapid Response Team has been discussed. Patient/Family are encouraged to report perceived risks to care and to ask questions if they do not understand what they are told or what they should do.
[2023-11-09 06:54] VITALS: PULSE 71; RESP 20; O2SAT 96
[2023-11-09 07:05] VITALS: BP 129/54; PULSE 82; RESP 16; TEMP 36.8; O2SAT 96
[2023-11-09 09:13] LABS: Basophils Absolute Auto 0.01 K/mm3 (0.00-0.10); Basophils Percent Auto 0.1 % (0.0-1.0); Eosinophils Absolute Auto 0.01 K/mm3 (0.02-0.50); Eosinophils Percent Auto 0.1 % (1.0-6.0); Hematocrit 37.6 % (35.0-49.0); Hemoglobin 12.9 g/dL (12.0-15.0); Immature Granulocyte Absolute 0.03 K/mm3 (0.00-0.00); Immature Granulocyte Percent A 0.4 % (0.0-0.0); Lymphocytes Absolute Auto 0.54 K/mm3 (1.10-4.50); Lymphocytes Percent Auto 7.9 % (18.0-42.0); Mean Corpuscular HGB Conc 34.3 g/dL (32.0-36.0); Mean Corpuscular Hemoglobin 31.9 pg (27.0-31.0); Mean Corpuscular Volume 93.1 fL (78.0-102.0); Mean Platelet Volume 9.7 fl (9.2-11.8); Monocytes Absolute Auto 0.45 K/mm3 (0.10-0.90); Monocytes Percent Auto 6.6 % (2.0-11.0); Neutrophils Absolute Auto 5.8 K/mm3 (1.7-7.2); Neutrophils Percent Auto 84.9 % (50.0-70.0); Platelet Count Result 195 K/mm3 (150-420); Red Blood Count 4.04 M/mm3 (4.20-5.40); Red Cell Distribution Width 12.3 % (11.6-14.4); White Blood Count 6.8 K/mm3 (4.8-10.8)
[2023-11-09 09:28] LABS: Alanine Aminotransferase 21 U/L (14-59); Albumin Level 3.5 g/dL (3.4-5.0); Alkaline Phosphatase 52 U/L (46-116); Anion Gap 5 mmol/L (8-16); Aspartate Amino Transferase 20 U/L (15-37); Bilirubin,Total 0.3 mg/dL (0.00-1.00); Blood Urea Nitrogen 9 mg/dL (7-18); Calcium 8.3 mg/dL (8.5-10.1); Carbon Dioxide 29 mmol/L (21-32); Chloride 102 mmol/L (98-108); Estimated CRCL calculation 82 ml/min; Estimated Glomerular Filt Rate > 60; Glucose 103 mg/dL (70-99); Osmolality Calculated 280 mOsm/kg (285-295); Sodium 136 mmol/L (136-145); Total Protein 6.3 g/dL (6.4-8.2)
[2023-11-09 09:31] LABS: Lactic Acid Reflex 1.1 mmol/L (0.4-2.0)
--- NOTE | 2023-11-09 09:42 | PM.SD2 ---
Same Day Admit/Disch: HPI History of Present Illness Chief complaint: vomiting Narrative: Black Collado is a 23 year old female ?this is a year female with some episodes of nausea and vomiting, the patient has a history of hyper emesis can avoid syndrome and has been having abdominal pain epigastric with no fever chills no shortness no chest pain no flank pain no dysuria or hematuria. MD elicited complaint: abdominal pain PMFSH Past Medical History Medical History Adnexal fullness Anxiety Body mass index [BMI] pediatric, less than 5th percentile for age (01/30/18) Diarrhea Encounter for IUD insertion Encounter for visit Encounter for test, result negative Encounter for supervision of normal first , second trimester Encounter for supervision of normal first , third trimester Goiter IUD check up Pelvic pain in female Supervision of high risk in third trimester Supervision of other high risk pregnancies, second trimester Vaginal bleeding Surgical History Surgical History No pertinent past surgical history Family History Family History Grandparent Diabetes mellitus Hypertension Other Family history of malignant neoplasm of cervix Social History Social History Smoking status: Never smoker Second hand tobacco smoke exposure: No Alcohol intake: current Drinks per week: 1 Substance use: current Substance use type: marijuana Last use: 10/06/23 Do You Feel Safe in your Home?: Yes Lack of Transportation: YES Lack of Food: Never True Current Housing: I Have Housing Concerned About Future Housing: No Difficulty Paying Gas/Electric Bills: No Difficulty Paying for Meds: No Currently Unemployed: No Education: High School Diploma/GED Difficulty w/ Childcare or Family Care: No Gender identity (if verbalized by the patient): Female Spiritual care concerns: No Same Day Admit/Disch: Med Pre-admit Medications Home Medications Medication Instructions Recorded Confirmed Type levothyroxine 25 mcg tablet 25 mcg PO DAILY 10/21/23 11/09/23 History lorazepam 0.5 mg tablet 0.5 mg PO BID 10/21/23 11/09/23 History ondansetron 4 mg disintegrating 4 mg PO Q8H PRN nausea and 11/09/23 Rx tablet vomiting #30 tabs Review of Systems Review of Systems nausea and vomiting All systems reviewed & are unremarkable except as noted in HPI and below DS: Data Data Completed and Pending Labs on day of discharge: Labs from last 24 hours 11/09/23 11/09/23 11/09/23 09:08 09:07 05:19 WBC 6.8 RBC 4.04 L Hgb 12.9 Hct 37.6 MCV 93.1 MCH 31.9 H MCHC 34.3 RDW 12.3 Plt Count 195 MPV 9.7 Immature Gran % (Auto) 0.4 H Neut % (Auto) 84.9 H Lymph % (Auto) 7.9 L [place] % (Auto) 6.6 Eos % (Auto) 0.1 L Baso % (Auto) 0.1 Lymph # (Auto) 0.54 L [place] # (Auto) 0.45 Eos # (Auto) 0.01 L Baso # (Auto) 0.01 Abs Immat Gran (auto) 0.03 H Absolute Neuts (auto) 5.8 Absolute Nucleated RBC 0.00 Nucleated RBC % 0.0 Sodium Pending Potassium Pending Chloride Pending Carbon Dioxide Pending Anion Gap Pending BUN Pending Creatinine Pending Estim Creat Clear Calc Pending Estimated GFR Pending Glucose Pending Calculated Osmolality Pending Lactic Acid Pending 1.5 Calcium Pending Total Bilirubin Pending AST Pending ALT Pending Alkaline Phosphatase Pending Total Protein Pending Albumin Pending Lipase TSH Urine Color Urine Appearance Urine pH Ur Specific [place] Urine Protein Urine Glucose (UA) Urine Ketones Ur Blood (Man) Urine Nitrate Urine Bilirubin Urine Urobilinogen
[2023-11-09] MEDS: CAPSAICIN 0.025% CREAM 60 GM TUBE 1 APPLIC (10:00)
[2023-11-09] MEDS: CAPSAICIN 0.025% CREAM 60 GM TUBE 1 APPLIC TOPICAL (12:20)
--- NOTE | 2023-11-09 13:38 | PC.NURSE ---
Patient given discharge instructions and voiced understanding. Patient able to ambulate off unit with nurse at her side. Personal items sent home with patient. Patient left hospital grounds in privately owned vehicle.
--- NOTE | 2023-11-11 09:05 | PC.NURSE ---
Discharge call back attempted, no answer
--- NOTE | 2023-11-12 10:29 | PC.NURSE ---
Discharge call back completed, states she did receive dc instructions, was kind of out of it but understood, doesn't have any questions, starting to feel a little better
== END 2023-11-09 13:40 | disposition home or self-care (01) ==
LOC: CHSED 05:42 → CHS2ND 09:42
PROVIDERS: Admitting Provider Internal Medicine; Emergency Provider Emergency Medicine; PCP Internal Medicine; Visit Provider Internal Medicine
DX: U07.1 COVID-19 (principal); K52.9 Noninfective gastroenteritis and colitis, unspecified; E86.0 Dehydration; R11.2 Nausea with vomiting, unspecified; F12.10 Cannabis abuse, uncomplicated; E03.9 Hypothyroidism, unspecified; N83.12 Corpus luteum cyst of left ovary; F41.9 Anxiety disorder, unspecified; F10.90 Alcohol use, unspecified, uncomplicated; Z79.899 Other long term (current) drug therapy
CPT/HCPCS: 36415; 74177; 80053; 81001; 81025; 83605; 83690; 84443; 85025; 87637; 96361; 96374; 96375; 96376; 99285; A9270; C9113; G0378; J1885; J2060; J2270; J2405; J2765; J7030; Q9967

== ENCOUNTER 2023-11-24 16:30 | Emergency (ER) | payer SELFPAY ==
[2023-11-24] VITALS (7 sets, daily range): BP systolic 111–125; BP diastolic 58–82; PULSE 67–109; RESP 16–18; TEMP 36.4–37; O2SAT 97–100
--- NOTE | ~2023-11-24 | CT_ITS ---
EXAMINATION: CT abdomen pelvis w con DATE: 11/24/2023 17:54 INDICATION: Lower abdominal pain and vomiting TECHNIQUE: Computed tomography (CT) of the abdomen and pelvis was performed with 100 mL Omnipaque-350 intravenous contrast. Automated exposure control and iterative reconstruction technique were employe d. The dose-length product was 212.90 mGy-cm. COMPARISON: None FINDINGS: Lung bases are clear. Heart size is normal. No pericardial or pleural effusion. 5 mm low-attenuation likely cyst or hemangioma in the anterior left hepatic lobe. Small region of focal hepatic steatosis along the ligamentum teres. There is mild intrahepatic biliary ductal dilation. Common bile duct andrew ures 4 mm diameter which is normal. Gallbladder, spleen, pancreas, bilateral adrenal glands and kidne ys are normal. Bowels including appendix are normal bladder is normal. T-shaped IUD in expected posit ion within the anteverted uterus. 1.8 cm cyst versus dominant follicle at the right ovary. Minimal am ount of likely physiologic fluid in the cul-de-sac. No pathologically enlarged abdominal or pelvic ly mphadenopathy. Mild lumbar levocurvature. IMPRESSION: 1. Mild intrahepatic biliary ductal dilation without dilation of the common bile duct. Correlate with liver function tests. Reviewed, dictated and finalized at location A. [employer] CHAIR IMPRESSION: 1. Mild intrahepatic biliary ductal dilation without dilation of the common hubert e duct. Correlate with liver function tests.
--- NOTE | 2023-11-24 16:39 | ED.ABDPAIN ---
HPI - Abdominal Pain General Chief Complaint: Nausea/Vomiting/Diarrhea Stated Complaint: vomiting Time Seen by Provider: 11/24/23 16:39 History of Present Illness HPI narrative: Patient is a 23-year-old female with history of prior cannabinoid hyperemesis here today with nausea and vomiting. She states that yesterday she began having nausea, vomiting, diarrhea. She states that symptoms are worsening today and this prompted her to go to her primary care doctor. At her primary care doctor's office they gave her 8 mg of Zofran, Solu-Medrol, Toradol with no improvement of her symptoms which prompted them to send her to the emergency department requesting both lab work and imaging to be performed. Patient notes that she is having some blood streaks in her vomit that just began. No cough or congestion. Patient notes that she had COVID over [place] but this seems to have improved. She is unsure if she has had a fever, she notes she feels anxious and is requesting ativan. Last marijuana use today, does not believe it has helped her symptoms. Related Data Home Medications Medication Instructions Recorded Confirmed levothyroxine 25 mcg tablet 25 mcg PO DAILY 10/21/23 11/24/23 lorazepam 0.5 mg tablet 0.5 mg PO BID 10/21/23 11/24/23 Allergies Allergy/AdvReac Type Severity Reaction Status Date / Time Penicillins Allergy Severe Hives Verified 11/24/23 16:46 Sulfa (Sulfonamide Allergy Hives Verified 11/24/23 16:46 Antibiotics) Review of Systems Review of Systems: All systems reviewed & are unremarkable except as noted in HPI and below PMFSH Past Medical History Medical History Adnexal fullness Anxiety Body mass index [BMI] pediatric, less than 5th percentile for age (01/30/18) Diarrhea Encounter for IUD insertion Encounter for visit Encounter for test, result negative Encounter for supervision of normal first , second trimester Encounter for supervision of normal first , third trimester Goiter IUD check up Pelvic pain in female Supervision of high risk in third trimester Supervision of other high risk pregnancies, second trimester Vaginal bleeding Surgical History Surgical History No pertinent past surgical history Family History Family History Grandparent Diabetes mellitus Hypertension Other Family history of malignant neoplasm of cervix Social History Social History Smoking status: Never smoker Second hand tobacco smoke exposure: No Alcohol intake: current Drinks per week: 1 Substance use: current Substance use type: marijuana Last use: 10/06/23 Do You Feel Safe in your Home?: Yes Lack of Transportation: YES Lack of Food: Never True Current Housing: I Have Housing Concerned About Future Housing: No Difficulty Paying Gas/Electric Bills: No Difficulty Paying for Meds: No Currently Unemployed: No Education: High School Diploma/GED Difficulty w/ Childcare or Family Care: No Gender identity (if verbalized by the patient): Female Spiritual care concerns: No Exam Narrative: GENERAL: Holding emesis basin, ill appearing. HEAD: Normocephalic, atraumatic. EYES: PERRLA and EOMI. ENT: Nares clear. Mucous membranes moist. NECK: Supple. CHEST: Clear to auscultation. No respiratory distress. HEART: Regular rate and rhythm. Normal peripheral pulses. ABDOMEN: Soft, nontender, nondistended. EXTREMITIES: Normal range of motion. No edema. SKIN: Warm, dry, no rash. NEURO: No focal deficits. Alert and oriented x3. PSYCH: Normal mood and affect. Course Course Emergency Course: Chart review performed. Patient here for abdominal pain, nausea, vomiting from PCP's office. Triage vitals grossly sha
--- NOTE | 2023-11-24 16:41 | ECG_ITS ---
Measurements Intervals [place] Rate: 61 P: IA: 0 QRS: 76 QRSD: 89 T: 53 QT: 398 QTc: 402 Interpretive Statements SINUS RHYTHM NORMAL ECG NO PREVIOUS ECG AVAILABLE FOR COMPARISON Electronically Signed On 11-24-2023 17:04:21 [employer] by Augusto Sanchez D.O.
[2023-11-24 16:59] LABS: Basophils Absolute Auto 0.01 K/mm3 (0.00-0.10); Basophils Percent Auto 0.1 % (0.0-1.0); Eosinophils Absolute Auto 0.02 K/mm3 (0.02-0.50); Eosinophils Percent Auto 0.1 % (1.0-6.0); Hematocrit 40.6 % (35.0-49.0); Hemoglobin 13.8 g/dL (12.0-15.0); Immature Granulocyte Absolute 0.14 K/mm3 (0.00-0.00); Immature Granulocyte Percent A 0.9 % (0.0-0.0); Lymphocytes Absolute Auto 0.43 K/mm3 (1.10-4.50); Lymphocytes Percent Auto 2.7 % (18.0-42.0); Mean Corpuscular Hemoglobin 31.2 pg (27.0-31.0); Mean Corpuscular Volume 91.6 fL (78.0-102.0); Mean Platelet Volume 9.8 fl (9.2-11.8); Monocytes Absolute Auto 0.17 K/mm3 (0.10-0.90); Monocytes Percent Auto 1.1 % (2.0-11.0); Neutrophils Percent Auto 95.1 % (50.0-70.0); Platelet Count Result 349 K/mm3 (150-420); Red Blood Count 4.43 M/mm3 (4.20-5.40); White Blood Count 15.8 K/mm3 (4.8-10.8)
[2023-11-24 17:14] LABS: Glucose Point of Care 173 mg/dl (65-105)
[2023-11-24 17:19] LABS: Lactic Acid Reflex 4.3 mmol/L (0.4-2.0)
[2023-11-24 17:25] LABS: Alanine Aminotransferase 32 U/L (14-59); Albumin Level 4.6 g/dL (3.4-5.0); Alkaline Phosphatase 79 U/L (46-116); Anion Gap 18 mmol/L (8-16); Aspartate Amino Transferase 24 U/L (15-37); Bilirubin,Total 1.5 mg/dL (0.00-1.00); Blood Urea Nitrogen 6 mg/dL (7-18); Calcium 10.1 mg/dL (8.5-10.1); Carbon Dioxide 22 mmol/L (21-32); Chloride 100 mmol/L (98-108); Estimated CRCL calculation 73 ml/min; Estimated Glomerular Filt Rate > 60; Glucose 204 mg/dL (70-99); Lipase 13 U/L (16-77); Magnesium 1.6 mg/dL (1.8-2.4); Osmolality Calculated 293 mOsm/kg (285-295); Potassium 3.3 mmol/L (3.5-5.1); Sodium 140 mmol/L (136-145); Total Protein 7.9 g/dL (6.4-8.2)
[2023-11-24 17:27] LABS: CRP < 0.5 mg/dL (0.0-0.9)
[2023-11-24 17:28] LABS: Appearance Urine Clear (Clear); Bilirubin Urine Negative (Negative); Blood Urine 1+ (Negative); Color Urine Yellow (Yellow); Glucose Urine UA 2+ (Negative); Ketones Urine 3+ (Negative); Leukocyte Esterase Ur Negative LEU/UL (Negative); Nitrate Urine Negative (Negative); Protein Urine 1+ (Negative); Specific Grav Ur 1.025 (1.010-1.020); Urobilinogen Urine 0.2 mg/dL (0.2-1.0); pH Urine 6.5 (5.0-8.0)
[2023-11-24] MEDS: LACTATED RINGERS 1,000 ML 999 ML IV CONT ×2 (17:32→18:54)
[2023-11-24 17:33] LABS: SPREG INTERNAL CONTROL Positive; Serum Qual hCG Negative
[2023-11-24] MEDS: PANTOPRAZOLE SODIUM IV 40 MG VIAL IV PUSH (17:33)
[2023-11-24] MEDS: diphenhydrAMINE HCl INJ 50 MG/ML VIAL 25 MG IV PUSH (17:34)
[2023-11-24 17:35] LABS: Add Urine Microscopic? YES; Bacteria Urine 1+ /hpf; Mucus Urine Rare /lpf; Squamous Epithelial Cell Urine Many /hpf (Few); WBC Urine 0-3 /hpf (0-3)
[2023-11-24] MEDS: HALOPERIDOL LACTATE 5 MG/ML VIAL IV PUSH (17:35)
[2023-11-24 18:05] LABS: SARS-CoV-2 RNA PCR Positive (Negative)
[2023-11-24 18:09] LABS: Influenza A QL RT-PCR Negative (Negative); Influenza B QL RT-PCR Negative (Negative); RSV RNA, RT-PCR Negative (Negative)
[2023-11-24] MEDS: POTASSIUM BICARBONATE 25 MEQ TABEF 50 MEQ PO (18:45)
[2023-11-24] MEDS: MAGNESIUM SULF 2 GM/WATER 50ML 2 GM/50 ML BAG IVPB (18:49)
[2023-11-24 19:09] LABS: Reflex Lactic Acid Yes or No Add Lactic
[2023-11-24 19:38] LABS: Lactic Acid 3.2 mmol/L (0.4-2.0)
== END 2023-11-24 20:52 | disposition home or self-care (01) ==
PROVIDERS: Emergency Provider Student in an Organized Health Care Education/Training Program; PCP Internal Medicine
DX: U07.1 COVID-19 (principal); R11.2 Nausea with vomiting, unspecified; R19.7 Diarrhea, unspecified; E86.0 Dehydration; E83.42 Hypomagnesemia; E87.6 Hypokalemia; Z79.899 Other long term (current) drug therapy
CPT/HCPCS: 36415; 74177; 80053; 81001; 82948; 83605; 83690; 83735; 84703; 85025; 86140; 87637; 93005; 96361; 96365; 96375; 99284; A9270; C9113; J1200; J1630; J3475; J7120; Q9967

== ENCOUNTER 2024-06-25 12:25 | Observation (INO) | payer MEDICAID, SELFPAY ==
[2024-06-25] VITALS (30 sets, daily range): BP systolic 117–135; BP diastolic 65–93; PULSE 60–85; RESP 16–20; TEMP 36.3–36.7; O2SAT 96–100; BMI 19.2
[2024-06-25 13:24] LABS: Basophils Absolute Auto 0.05 K/mm3 (0.00-0.10); Basophils Percent Auto 0.5 % (0.0-1.0); Eosinophils Absolute Auto 0.12 K/mm3 (0.02-0.50); Eosinophils Percent Auto 1.3 % (1.0-6.0); Hematocrit 45.5 % (35.0-49.0); Hemoglobin 15.7 g/dL (12.0-15.0); Immature Granulocyte Absolute 0.03 K/mm3 (0.00-0.00); Immature Granulocyte Percent A 0.3 % (0.0-0.0); Lymphocytes Absolute Auto 3.54 K/mm3 (1.10-4.50); Lymphocytes Percent Auto 37.8 % (18.0-42.0); Mean Corpuscular HGB Conc 34.5 g/dL (32-36); Mean Corpuscular Volume 92.7 fL (78.0-102.0); Mean Platelet Volume 10.4 fl (9.2-11.8); Monocytes Absolute Auto 0.58 K/mm3 (0.10-0.90); Monocytes Percent Auto 6.2 % (2.0-11.0); Neutrophils Absolute Auto 5.05 K/mm3 (1.70-7.20); Neutrophils Percent Auto 53.9 % (50.0-70.0); Platelet Count Result 384 K/mm3 (150-420); Red Blood Count 4.91 M/mm3 (4.20-5.40); Red Cell Distribution Width 12.2 % (11.6-14.4); White Blood Count 9.4 K/mm3 (4.8-10.8)
[2024-06-25] MEDS: PANTOPRAZOLE SODIUM IV 40 MG VIAL IV PUSH (13:26)
[2024-06-25] MEDS: LORazepam INJ (*CRX) 2 MG/ML VIAL 1 MG IV PUSH ×2 (13:27→21:23)
[2024-06-25] MEDS: LACTATED RINGERS 1,000 ML 999 ML IV CONT ×2 (13:28)
[2024-06-25 13:33] LABS: Alanine Aminotransferase 21 U/L (14-59); Alkaline Phosphatase 98 U/L (46-116); Anion Gap 19 mmol/L (4-12); Aspartate Amino Transferase 24 U/L (15-37); Bilirubin,Total 0.8 mg/dL (0.00-1.00); Blood Urea Nitrogen 4 mg/dL (7-18); Calcium 9.8 mg/dL (8.5-10.1); Carbon Dioxide 23 mmol/L (21-32); Chloride 100 mmol/L (98-108); Estimated Glomerular Filt Rate > 60; Glucose 135 mg/dL (70-99); Lipase 47 U/L (16-77); Osmolality Calculated 292 mOsm/kg (285-295); Potassium 2.6 mmol/L (3.5-5.1); Sodium 142 mmol/L (136-145); Total Protein 8.5 g/dL (6.4-8.2)
[2024-06-25 13:38] LABS: Lactic Acid Reflex 6.4 mmol/L (0.4-2.0)
--- NOTE | 2024-06-25 14:21 | ED.GENADULT ---
HPI - General Adult General Chief complaint: Nausea/Vomiting/Diarrhea Stated complaint: vomiting History of Present Illness HPI narrative: 23-year-old white female has had above toothache for the last few days, started on some antibiotics about 3 days ago, and then today about 4 hours before arriving here began having severe abdominal spasms, cramps, and frequent, intense vomiting that has not relented. No blood or coffee-ground emesis, she denies any fever, chills, recent illness, denies diarrhea, constipation, dysuria urgency or frequency. She does acknowledge being a daily cannabis smoker and acknowledges from being told repeatedly in the past and with these episodes of nausea and vomiting are related to her persistent cannabis usage. She reports episodes like this about once a month, although does not always have to come to the emergency department for them. Quick review of her old chart reveals about 12 visits over the past 12-18 months. she denies smoking cigarettes, she was vague about whether she drinks alcohol Related Data Allergies Allergy/AdvReac Type Severity Reaction Status Date / Time Penicillins Allergy Severe Hives Verified 11/24/23 16:46 Sulfa (Sulfonamide Allergy Hives Verified 11/24/23 16:46 Antibiotics) Review of Systems Review of Systems: All systems reviewed & are unremarkable except as noted in HPI and below PMFSH Past Medical History Medical History Adnexal fullness Anxiety Body mass index [BMI] pediatric, less than 5th percentile for age (01/30/18) Diarrhea Encounter for IUD insertion Encounter for visit Encounter for test, result negative Encounter for supervision of normal first , second trimester Encounter for supervision of normal first , third trimester Goiter IUD check up Pelvic pain in female Supervision of high risk in third trimester Supervision of other high risk pregnancies, second trimester Vaginal bleeding Surgical History Surgical History No pertinent past surgical history Family History Family History Grandparent Diabetes mellitus Hypertension Other Family history of malignant neoplasm of cervix Social History Social History Smoking status: Never smoker Second hand tobacco smoke exposure: No Alcohol intake: never Drinks per week: 1 Substance use: current Substance use type: marijuana Other substance usage details: daily Last use: 06/25/2024 Do You Feel Safe in your Home?: Yes Lack of Transportation: YES Lack of Food: Never True Current Housing: I Have Housing Concerned About Future Housing: No Difficulty Paying Gas/Electric Bills: YES Difficulty Paying for Meds: YES Currently Unemployed: YES Education: High School Diploma/GED Difficulty w/ Childcare or Family Care: No Gender identity (if verbalized by the patient): Female Spiritual care concerns: Yes Exam Const: General: alert and ill appearing Orientation/consciousness: patient oriented x3 Other: slender, multiple tattoos, looks older than his stated age, holding an emesis bag, mucous membranes look very dry, and she is somewhat restless, moves about on the stretcher HENMT: Head: normal to inspection Face and sinus: normal facial exam Mouth: Yes dry mucous membranes Eyes: Conjunctivae: conjunctivae normal Pupils: Equal, round and reactive pupils present EOM: EOMs intact bilaterally Neck: Neck: normal visual inspection and no lymphadenopathy Other: supple Resp: Effort & Inspection: normal respiratory effort Auscultation: clear to auscultation bilaterally Other: patient was hyperventilating on presentation Cardio: Rate: regular rate Rhythm: regular rhythm Heart sounds: M
--- NOTE | 2024-06-25 14:43 | PC.NURSE ---
dr allen in with pt discussing plan of care. pt voiced concern that staff only focuses on the fact that she smokes thc.
[2024-06-25 14:47] LABS: Add Urine Microscopic? NO; Appearance Urine Clear (Clear); Bilirubin Urine Negative (Negative); Blood Urine Negative (Negative); Color Urine Light Yellow (Yellow); Glucose Urine UA 1+ (Negative); Ketones Urine Negative (Negative); Leukocyte Esterase Ur Negative LEU/UL (Negative); Nitrate Urine Negative (Negative); Protein Urine Negative (Negative); Specific Grav Ur 1.015 (1.010-1.020); Urobilinogen Urine 0.2 mg/dL (0.2-1.0); pH Urine 7.5 (5.0-8.0)
[2024-06-25 14:51] LABS: Pregnancy On Board Control Positive; Urine Pregnancy Test Negative
[2024-06-25 14:59] LABS: Amphetamine Screen Urine Negative (Negative); Barbiturate Screen Urine Negative (Negative); Benzodiazepines Screen Urine Negative (Negative); Cannabinoid Screen Urine Positive (Negative); Cocaine Screen Urine Negative (Negative); Methadone Screen Urine Negative (Negative); Opiate Screen Urine Negative (Negative); Phencyclidine Screen Urine Negative (Negative)
[2024-06-25] MEDS: ONDANSETRON INJ 4 MG/2 ML VIAL IV PUSH ×2 (15:06→19:38)
[2024-06-25] MEDS: DEXTROSE 5%/LACTATED RINGERS 1,000 ML 300 ML IV CONT (15:06)
[2024-06-25 16:20] LABS: Reflex Lactic Acid Yes or No Add Lactic
[2024-06-25 17:52] LABS: Alanine Aminotransferase 21 U/L (14-59); Albumin Level 3.9 g/dL (3.4-5.0); Alkaline Phosphatase 77 U/L (46-116); Anion Gap 14 mmol/L (4-12); Aspartate Amino Transferase 20 U/L (15-37); Bilirubin,Total 0.7 mg/dL (0.00-1.00); Blood Urea Nitrogen 3 mg/dL (7-18); Calcium 8.5 mg/dL (8.5-10.1); Carbon Dioxide 23 mmol/L (21-32); Chloride 103 mmol/L (98-108); Estimated Glomerular Filt Rate > 60; Glucose 238 mg/dL (70-99); Osmolality Calculated 294 mOsm/kg (285-295); Potassium 3.3 mmol/L (3.5-5.1); Sodium 140 mmol/L (136-145); Total Protein 6.5 g/dL (6.4-8.2)
[2024-06-25 17:57] LABS: Lactic Acid Reflex 3.7 mmol/L (0.4-2.0)
--- NOTE | 2024-06-25 19:17 | PC.NURSE ---
report to feliciano gonzales.
[2024-06-25] MEDS: KCL 20 MEQ/SW 100 ML 100 ML 50 MEQ IVPB (19:39)
[2024-06-25] MEDS: DEXTROSE 5%/LACTATED RINGERS 1,000 ML 125 ML IV CONT (19:39)
--- NOTE | 2024-06-25 19:45 | PC.NURSE ---
confirmed with evelio from [facility] that it is ok to run the kcl pb with [id number]
[2024-06-26] VITALS: BP 112/76; PULSE 68; RESP 16; TEMP 36.6; O2SAT 100
--- NOTE | 2024-06-26 00:46 | PC.NURSE ---
Dr. Johnson notified of pt's request for capsasin ointment. New order received for capsasin ointment q 6 hrs PRN.
[2024-06-26] MEDS: CAPSAICIN 0.025% CREAM 60 GM TUBE 1 APPLIC TOPICAL (01:02)
[2024-06-26] MEDS: KCL 20 MEQ/SW 100 ML 100 ML 50 MEQ IVPB (01:03)
[2024-06-26 02:00] VITALS: PULSE 56
[2024-06-26] MEDS: ONDANSETRON INJ 4 MG/2 ML VIAL IV PUSH ×2 (02:47→09:10)
[2024-06-26 04:00] VITALS: BP 117/70; PULSE 52; PULSE 60; RESP 16; TEMP 36.6; O2SAT 100
[2024-06-26] MEDS: DEXTROSE 5%/LACTATED RINGERS 1,000 ML 125 ML IV CONT (05:10)
[2024-06-26 05:27] LABS: Basophils Absolute Auto 0.01 K/mm3 (0.00-0.10); Basophils Percent Auto 0.1 % (0.0-1.0); Eosinophils Absolute Auto 0.01 K/mm3 (0.02-0.50); Eosinophils Percent Auto 0.1 % (1.0-6.0); Hematocrit 38.4 % (35.0-49.0); Immature Granulocyte Absolute 0.04 K/mm3 (0.00-0.00); Immature Granulocyte Percent A 0.3 % (0.0-0.0); Lymphocytes Absolute Auto 1.22 K/mm3 (1.10-4.50); Lymphocytes Percent Auto 9.2 % (18.0-42.0); Mean Corpuscular HGB Conc 33.9 g/dL (32-36); Mean Corpuscular Hemoglobin 31.2 pg (27.0-31.0); Mean Corpuscular Volume 92.1 fL (78.0-102.0); Mean Platelet Volume 9.9 fl (9.2-11.8); Monocytes Absolute Auto 0.75 K/mm3 (0.10-0.90); Monocytes Percent Auto 5.7 % (2.0-11.0); Neutrophils Absolute Auto 11.23 K/mm3 (1.70-7.20); Neutrophils Percent Auto 84.6 % (50.0-70.0); Platelet Count Result 285 K/mm3 (150-420); Red Blood Count 4.17 M/mm3 (4.20-5.40); Red Cell Distribution Width 12.3 % (11.6-14.4); White Blood Count 13.3 K/mm3 (4.8-10.8)
[2024-06-26 05:40] LABS: Anion Gap 9 mmol/L (4-12); Blood Urea Nitrogen 1 mg/dL (7-18); Calcium 9.3 mg/dL (8.5-10.1); Carbon Dioxide 27 mmol/L (21-32); Chloride 106 mmol/L (98-108); Estimated CRCL calculation 92 ml/min; Estimated Glomerular Filt Rate > 60; Glucose 102 mg/dL (70-99); Osmolality Calculated 289 mOsm/kg (285-295); Potassium 4.1 mmol/L (3.5-5.1); Sodium 142 mmol/L (136-145)
[2024-06-26 06:00] VITALS: PULSE 68
[2024-06-26 08:00] VITALS: BP 120/70; PULSE 66; RESP 14; TEMP 36.9; O2SAT 99
--- NOTE | 2024-06-26 08:31 | PM.SD2 ---
Same Day Admit/Disch: HPI History of Present Illness Chief complaint: vomiting Narrative: Black Collado is a 23 year old female HPI - General Adult General Chief complaint: Nausea/Vomiting/Diarrhea Stated complaint: vomiting History of Present Illness HPI narrative: 23-year-old white female has had above toothache for the last few days, started on some antibiotics about 3 days ago, and then today about 4 hours before arriving here began having severe abdominal spasms, cramps, and frequent, intense vomiting that has not relented. No blood or coffee-ground emesis, she denies any fever, chills, recent illness, denies diarrhea, constipation, dysuria urgency or frequency. She does acknowledge being a daily cannabis smoker and acknowledges from being told repeatedly in the past and with these episodes of nausea and vomiting are related to her persistent cannabis usage. She reports episodes like this about once a month, although does not always have to come to the emergency department for them. Quick review of her old chart reveals about 12 visits over the past 12-18 months. she denies smoking cigarettes, she was vague about whether she drinks alcohol Related Data PMFSH Past Medical History Medical History Adnexal fullness Anxiety Body mass index [BMI] pediatric, less than 5th percentile for age (01/30/18) Diarrhea Encounter for IUD insertion Encounter for visit Encounter for test, result negative Encounter for supervision of normal first , second trimester Encounter for supervision of normal first , third trimester Goiter IUD check up Pelvic pain in female Supervision of high risk in third trimester Supervision of other high risk pregnancies, second trimester Vaginal bleeding Surgical History Surgical History No pertinent past surgical history Family History Family History Grandparent Diabetes mellitus Hypertension Other Family history of malignant neoplasm of cervix Social History Social History Smoking status: Never smoker Second hand tobacco smoke exposure: No Alcohol intake: never Drinks per week: 1 Substance use: current Substance use type: marijuana Other substance usage details: daily Last use: 06/25/2024 Do You Feel Safe in your Home?: Yes Lack of Transportation: YES Lack of Food: Never True Current Housing: I Have Housing Concerned About Future Housing: No Difficulty Paying Gas/Electric Bills: YES Difficulty Paying for Meds: YES Currently Unemployed: YES Education: High School Diploma/GED Difficulty w/ Childcare or Family Care: No Gender identity (if verbalized by the patient): Female Spiritual care concerns: Yes Same Day Admit/Disch: Med Pre-admit Medications Home Medications Medication Instructions Recorded Confirmed Type ondansetron 4 mg disintegrating 4 mg PO Q8H PRN nausea and 06/26/24 Rx tablet vomiting #10 tabs Review of Systems Review of Systems nausea, abdominal pain All systems reviewed & are unremarkable except as noted in HPI and below Exam Const: General: cooperative, healthy appearing, comfortable and anxious Orientation/consciousness: oriented to person, oriented to place, oriented to time and patient oriented x3 HENMT: Head: normal to inspection Face and sinus: normal facial exam Mouth: Yes Normal oral and palatal mucosa present, Yes lip normal, Yes tongue normal and Yes oropharynx normal Throat: posterior oropharynx normal Eyes: General: appearance normal, both eyes and all related structures Alignment and Position: alignment normal Pupils: Equal, round and reactive pupils present and Pupils normal by confrontation EOM: EOMs intact bilaterally Ne
--- NOTE | 2024-06-26 11:03 | PC.NURSE ---
Pt discharged to home with VSS. Discharge teacging completed. Pt verbalizes understanding. Pt walked to the car with steady gait.
--- NOTE | 2024-06-30 13:01 | PC.NURSE ---
discharge call back attempted, no answer
--- NOTE | 2024-07-05 09:41 | PC.NURSE ---
Discharge call back completed, concerns regarding ED visit and overall visit, listened to patient and forwarded concerns to appropriate director.
== END 2024-06-26 09:20 | disposition home or self-care (01) ==
LOC: CHSED 14:01 → CHS2ND 19:02
PROVIDERS: Admitting Provider Internal Medicine; Emergency Provider Emergency Medicine; PCP Internal Medicine; Visit Provider Internal Medicine
DX: R11.15 Cyclical vomiting syndrome unrelated to migraine (principal); E86.0 Dehydration; E87.20 Acidosis, unspecified; E87.6 Hypokalemia; F12.10 Cannabis abuse, uncomplicated
CPT/HCPCS: 36415; 80048; 80053; 80307; 81003; 81025; 83605; 83690; 85025; 96361; 96365; 96366; 96374; 96375; 96376; 99285; A9270; G0378; J2060; J2405; J2470; J3480; J7120; J7121

== ENCOUNTER 2024-12-04 20:31 | Emergency (ER) | payer MEDICAID, SELFPAY ==
[2024-12-04 20:33] VITALS: BP 110/81; PULSE 811; RESP 19; TEMP 36.2; O2SAT 100
--- NOTE | 2024-12-04 20:40 | ED_ITS ---
HPI - General Adult General Chief complaint: Nausea/Vomiting/Diarrhea Stated complaint: throwing up Time Seen by Provider: 12/04/24 20:33 History of Present Illness HPI narrative: Black is a 24F with a PMH of etoh abuse, drug induced N/V, cannabis use that presented to the ED with a day of nausea and vomiting and being unable to tolerate PO. She drank etoh yesterday but ended at 11. She started vomiting at 0100 today and has n ot been able to tolerate PO since. No CP, fevers or hematemesis. Related Data Allergies Allergy/AdvReac Type Severity Reaction Status Date / Time Penicillins Allergy Severe Hives Verified 12/04/24 23:42 Sulfa (Sulfonamide Allergy Hives Verified 12/04/24 23:42 Antibiotics) Review of Systems 2 Review of Systems: All systems reviewed & are unremarkable except as noted in HPI and below PMFSH Past Medical History Medical History Adnexal fullness Anxiety Body mass index [BMI] pediatric, less than 5th percentile for age (01/30/18) Diarrhea Encounter for IUD insertion Encounter for visit Encounter for test, result negative Encounter for supervision of normal first , second trimester Encounter for supervision of normal first , third trimester Goiter IUD check up Pelvic pain in female Supervision of high risk in third trimester Supervision of other high risk pregnancies, second trimester Vaginal bleeding Surgical History Surgical History No pertinent past surgical history Family History Family History Grandparent Diabetes mellitus Hypertension Other Family history of malignant neoplasm of cervix Social History Social History Smoking status: Never smoker Second hand tobacco smoke exposure: No Alcohol intake: never Drinks per week: 1 Substance use: current Substance use type: marijuana Other substance usage details: daily Last use: 06/25/2024 Do You Feel Safe in your Home?: Yes Lack of Transportation: YES Lack of Food: Never True Current Housing: I Have Housing Concerned About Future Housing: No Difficulty Paying Gas/Electric Bills: YES Difficulty Paying for Meds: YES Currently Unemployed: YES Education: High School Diploma/GED Difficulty w/ Childcare or Family Care: No Gender identity (if verbalized by the patient): Female Spiritual care concerns: Yes Exam 2 Const: General: cooperative, comfortable, no acute distress, well developed, alert, awake and Physically active Orientation/consciousness: oriented to person, oriented to place and oriented to time Other: mildly ill appearing. HENMT: Head: normal to inspection, normocephalic and atraumatic Ears: h earing grossly normal bilaterally and external ears normal Face/Nose/Sinus: N ormal external nose present Eyes: General: appearance normal, both eyes and all related structures P eriorbital: periorbital findings normal Sclera: sclerae normal Pupils: E qual, round and reactive pupils present Neck: Neck: normal visual inspection Chest: Chest palpation & inspection: normal inspection of the chest Resp: Effort & Inspection: normal respiratory effort, able to speak in complete sentences and no respiratory distress Auscultation: clear to auscultation bilaterally Cardio: Jugular venous distension: no JVD Rate: regular rate Rhythm: r egular rhythm GI: Inspection: normal to inspection GI Palp: Yes Soft to palpation A uscultation: normal bowel sounds Skin: General skin exam: normal color and no rashes or lesions noted Neuro: General: oriented to person, oriented to place and oriented to time Cranial nerves: Yes Equal, round and reactive pupils present Extrem: General: normal to inspection Course Course Emergency Course: Ordered fluids, zofran and labs Labs showed a very elevated WBC count, low magnesium, and an elevated lactic acid so another liter was ordered as well as mag sulfate After fluids her lactic acid returned to normal. She was able to drink a soda without difficulty. She was discharged and instructed to f/u with Dr. Cheema for further workup and to recheck her leukocytosis. Vital Signs Vital signs: Vital Signs Temperature 97.1 F L 12/04/24 20:33 Pulse Rate 811 H 12/04/24 20:33 Respiratory Rate 19 12/04/24 20:33 Blood Pressure 110/81 12/04/24 20:33 Pulse Oximetry 100 12/04/24 20:33 Oxygen Delivery Room Air 12/04/24 20:33 Temperature 97.1 F L 12/04/24 20:33 Pulse Rate 811 H 12/04/24 20:33 Respiratory Rate 19 12/04/24 20:33 Blood Pressure 110/81 12/04/24 20:33 Pulse Oximetry 100 12/04/24 20:33 Oxygen Delivery Room Air 12/04/24 20:33 Medical Decision Making Vital Signs Vital Signs: Vital Signs Temperature 97.1 F L 12/04/24 20:33 Pulse Rate 811 H 12/04/24 20:33 Respiratory Rate 19 12/04/24 20:33 Blood Pressure 110/81 12/04/24 20:33 Pulse Oximetry 100 12/04/24 20:33 Oxygen Delivery Room Air 12/04/24 20:33 Temperature 97.1 F L 12/04/24 20:33 Pulse Rate 811 H 12/04/24 20:33 Respiratory Rate 19 12/04/24 20:33 Blood Pressure 110/81 12/04/24 20:33 Pulse Oximetry 100 12/04/24 20:33 Oxygen Delivery Room Air 12/04/24 20:33 Lab Data 12/04/24 21:24 12/04/24 21:25 Labs: Lab Results 12/04/24 12/04/24 12/04/24 Range/Units 21:24 21:25 23:44 WBC 20.2 H* (4.8-10.8) K/mm3 RBC 4.43 (4.20-5.40) M/mm3 Hgb 13.8 (12.0-15.0) g/dL Hct 40.4 (35.0-49.0) % MCV 91.2 (78.0-102.0) fL MCH 31.2 H (27.0-31.0) pg MCHC 34.2 (32-36) g/dL RDW 11.9 (11.6-14.4) % Plt Count 300 (150-420) K/mm3 MPV 10.4 (9.2-11.8) fl Immature Gran % (Auto) Not Reportable Neut % (Auto) Not Reportable Lymph % (Auto) Not Reportable Winkler % (Auto) Not Reportable Eos % (Auto) Not Reportable Baso % (Auto) Not Reportable Lymph # (Auto) Not Reportable Winkler # (Auto) Not Reportable Eos # (Auto) Not Reportable Baso # (Auto) Not Reportable Abs Immat Gran (auto) Not Reportable Absolute Neuts (auto) Not Reportable Absolute Nucleated RBC Not Reportable Total Counted 100 Neutrophils % (Manual) 93 H (46-73) % Band Neutrophils % 0 (0-6) % Lymphocytes % (Manual) 7 L (18-44) % Nucleated RBC % Not Reportable Abs Neuts (Manual) 18.78 H (1.7-7.2) K/mm3 Abs Lymphs (Manual) 1.41 (1.1-4.5) K/mm3 Platelet Estimate Adequate (Adequate) Schistocytes None seen Sodium 141 (136-145) mmol/L Potassium 3.7 (3.5-5.1) mmol/L Chloride 100 (98-108) mmol/L Carbon Dioxide 25 (21-32) mmol/L Anion Gap 16 H (4-12) mmol/L BUN 10 (7-18) mg/dL Creatinine 0.99 (0.55-1.02) mg/dL Estim Creat Clear Calc 70 ml/min Estimated GFR > 60 (59 - ) Glucose 144 H (70-99) mg/dL Calculated Osmolality 294 (285-295) mOsm/kg Lactic Acid 4.2 H 1.0 (0.4-2.0) mmol/L Calcium 9.7 (8.5-10.1) mg/dL Magnesium 1.5 L (1.8-2.4) mg/dL Total Bilirubin 0.7 (0.00-1.00) mg/dL AST 16 (15-37) U/L ALT 23 (14-59) U/L Alkaline Phosphatase 72 (46-116) U/L C-Reactive Protein 0.9 (0.0-0.9) mg/dL Total Protein 7.4 (6.4-8.2) g/dL Albumin 4.4 (3.4-5.0) g/dL Lipase 17 (16-77) U/L Ethyl Alcohol < 3 (0-6) mg/dL Influenza A (RT-PCR) Negative (Negative) Influenza B (RT-PCR) Negative (Negative) RSV (RT-PCR) Negative (Negative) SARS-CoV-2 RNA (RT-PCR) Negative (Negative) Discharge Plan Discharge Clinical Impression: Drug-induced nausea and vomiting Patient Disposition: Home, Self-Care Condition: Stable Instructions: Acute Nausea and Vomiting (ED) Patient Language: Sammarinese Prescriptions: New ondansetron 4 mg tablet,disintegrating 4 mg PO Q8H PRN (Reason: nausea and vomiting) Qty: 10 0RF No Action ondansetron 4 mg tablet,disintegrating 4 mg PO Q8H PRN (Reason: nausea and vomiting) Qty: 10 0RF Follow-up/Referrals: Alphonse Cheema MD [Primary Care Provider] -
[2024-12-04] MEDS: ONDANSETRON INJ 4 MG/2 ML VIAL IV PUSH (20:51)
[2024-12-04] MEDS: LACTATED RINGERS 1,000 ML 999 ML IV CONT (20:55)
[2024-12-04] MEDS: LORazepam INJ (*CRX) 2 MG/ML VIAL 1 MG IV PUSH (20:59)
--- NOTE | 2024-12-04 21:01 | PC.NURSE ---
covid swab sent to lab
--- NOTE | 2024-12-04 21:24 | PC.NURSE ---
Patient states nausea and abd pain are much better
[2024-12-04 21:56] LABS: Hematocrit 40.4 % (35.0-49.0); Hemoglobin 13.8 g/dL (12.0-15.0); Mean Corpuscular HGB Conc 34.2 g/dL (32-36); Mean Corpuscular Hemoglobin 31.2 pg (27.0-31.0); Mean Corpuscular Volume 91.2 fL (78.0-102.0); Mean Platelet Volume 10.4 fl (9.2-11.8); Platelet Count Result 300 K/mm3 (150-420); Red Blood Count 4.43 M/mm3 (4.20-5.40); Red Cell Distribution Width 11.9 % (11.6-14.4)
[2024-12-04 22:04] LABS: Alanine Aminotransferase 23 U/L (14-59); Albumin Level 4.4 g/dL (3.4-5.0); Alkaline Phosphatase 72 U/L (46-116); Anion Gap 16 mmol/L (4-12); Aspartate Amino Transferase 16 U/L (15-37); Bilirubin,Total 0.7 mg/dL (0.00-1.00); Blood Urea Nitrogen 10 mg/dL (7-18); CRP 0.9 mg/dL (0.0-0.9); Calcium 9.7 mg/dL (8.5-10.1); Carbon Dioxide 25 mmol/L (21-32); Chloride 100 mmol/L (98-108); Estimated CRCL calculation 70 ml/min; Estimated Glomerular Filt Rate > 60; Glucose 144 mg/dL (70-99); Lipase 17 U/L (16-77); Magnesium 1.5 mg/dL (1.8-2.4); Osmolality Calculated 294 mOsm/kg (285-295); Potassium 3.7 mmol/L (3.5-5.1); Sodium 141 mmol/L (136-145); Total Protein 7.4 g/dL (6.4-8.2)
[2024-12-04 22:07] LABS: Ethanol < 3 mg/dL (0-6)
[2024-12-04 22:07] LABS: White Blood Count 20.2 K/mm3 (4.8-10.8)
[2024-12-04 22:12] LABS: Lactic Acid Reflex 4.2 mmol/L (0.4-2.0)
[2024-12-04 22:34] LABS: SARS-CoV-2 RNA PCR Negative (Negative)
[2024-12-04 22:36] LABS: Influenza A QL RT-PCR Negative (Negative); Influenza B QL RT-PCR Negative (Negative); RSV RNA, RT-PCR Negative (Negative)
[2024-12-04] MEDS: MAG HYDROX/ALUMINUM HYD/SIMETH 30 ML, PHENobarb/HYOSCY/ATROPINE/SCOP 32.4 MG, LIDOCAINE... PO (22:39)
[2024-12-04] MEDS: SODIUM CHLORIDE 0.9% IV 1,000 ML 999 ML IV CONT (22:39)
[2024-12-04] MEDS: MAGNESIUM SULF 2 GM/WATER 50ML 2 GM/50 ML BAG IVPB (22:40)
[2024-12-04 23:57] LABS: Band Neutrophils Percent 0 % (0-6); Lymphocytes Absolute Manual 1.41 K/mm3 (1.1-4.5); Lymphocytes Percent Manual 7 % (18-44); Neutrophils Absolute Manual 18.78 K/mm3 (1.7-7.2); Neutrophils Percent Manual 93 % (46-73); Platelet Estimate Adequate (Adequate); Total Cells Counted 100
[2024-12-04 23:58] LABS: Schistocytes None Seen
[2024-12-05 00:30] VITALS: BP 110/60; PULSE 105; RESP 18; TEMP 37.6; O2SAT 97
== END 2024-12-05 00:35 | disposition home or self-care (01) ==
PROVIDERS: Emergency Provider Family Medicine; PCP Internal Medicine
DX: R11.2 Nausea with vomiting, unspecified (principal); F12.99 Cannabis use, unspecified with unspecified cannabis-induced disorder; Z20.822 Contact with and (suspected) exposure to COVID-19
CPT/HCPCS: 36415; 80053; 82077; 83605; 83690; 83735; 85025; 86140; 87637; 96361; 96365; 96366; 96374; 96375; 99284; A9270; J2060; J2405; J3475; J7030; J7120

== ENCOUNTER 2025-02-11 14:05 | Outpatient (CLI) | payer MEDICAID, SELFPAY ==
--- OUTSIDE RECORDS SUMMARY | 2025-02-11 14:11 | XMS_ITS | Clinical Summary ---
Author Organization [facility] Address [address] [place] [address] Care Team Providers Care Spanish Interpreter/Translator Name Role Phone Alphonse Cheema MD Primary Care Provider [phone] Allergies Active Allergy Reactions Criticality Noted Date Comments Penicillins Unknown 09/13/2021 Childhood allergy Sulfa (Sulfonamide Antibiotics) Hives Medium 02/16 Medications ondansetron ODT (ZOFRAN-ODT) 4 mg disintegrating tablet DISSOLVE 1 TABLET ON THE TONGUE EVERY 8 HOURS NEEDED FOR NAUSEA OR VOMITING 02/09/20 22 Active SUMAtriptan (IMITREX) 50 mg tablet Take 1 tablet (50 mg total) by mouth 2 (two) times a day as needed 09/13/20 21 Active famotidine (PEPCID) 20 mg tablet Take 1 tablet (20 mg total) by mouth daily Active UNABLE TO FIND Med Name: IUD A ctive acetaminophen 500 mg capsule Take 2 capsules (1,000 mg total) by mouth every 6 (six) hours as needed for pain 05/22/20 22 Active Additional Information Patient not taking.Reported on 09/07/2024 docusate sodium (COLACE) 100 mg capsuleIndications :constipation Take 1 capsule (100 mg total) by mouth 2 (two) times a day 30 capsule 05/22/20 22 Active Additional Information Patient not taking.Reported on 09/07/2024 ibuprofen (ADVIL,MOTRIN) 200 mg tab/cap Take 1 tablet/capsule (200 mg total) by mouth 3 (three) times a day as needed for pain 20 tablet 05/22/20 22 Active Additional Information Patient not taking.Reported on 09/07/2024 oxyCODONE (ROXICODONE) 5 mg immediate release tabletIndications: Pain Take 1 tablet (5 mg total) by mouth every 6 (six) hours as needed for pain for up to 10 doses 10 tablet 05/22/20 Active Additional Information Patient not taking.Reported on 09/07/2024 LORazepam (ATIVAN) 0.5 mg tablet TAKE 1/2 TO 1 TABLET BY MOUTH TWICE DAILY NEEDED 01/14/20 Active levothyroxine (SYNTHROID) 25 mcg tablet Take 1 tablet (25 mcg total) by mouth daily 90 tablet 1 04/01/20 Active Active Problems Problem Noted Date Diagnosed Date Chronic fatigue 03/31/2023 Assessment & Plan (03/31/2023 10:44 AM CDT): Chronic, got worse after thyroid surgery - we will check CBC and BMP Multinodular goiter 05/22/2022 Thyroid nodule 04/12/2022 Overview (04/12/2022): Added automatically from request for surgery [id number] Nontoxic multinodular goiter 03/14/2022 Assessment & Plan (03/31/2023 10:43 AM CDT): Multinodular goiter with dominant nodule since 2018 S/p left lobectomy on 05/22/22 Thyroid gland not palpable Patient had normal TSH of 2.11 on 06/14/22 Plan: Will check thyroid labs Check thyroid ultrasound Assessment & Plan (03/14/2022 3:11 PM CDT): Multinodular goiter with dominant nodule since 2018 Last Ultrasound on 02/15/22 Left lobe nodule 4.1cm mixed solid and cystic Plan: Will check thyroid labs Thyroid cancer will need to be ruled out and I recommended FNA biopsy . If nodule is benign, she will have the option of continued monitoring, but surgey will be needed if biopsy showed cancer or if she continues to have pressure symptoms. Patient understands and agrees with above plan. Abnormal finding on screening of mothe r 08/23/2016 Bronchial asthma 08/23/2016 Hyperemesis arising during 08/23/2016 Abdominal pain 05/12/2014 Abnormal weight loss 05/12/2014 Tenderness of right iliac fossa 05/12/2014 Diarrhea 05/12/2014 Menorrhagia 09/20/2013 Surgical History Surgery Date Site/Laterality Comments NO PAST SURGERIES Medical History Medical History Date Comments Asthma Asthma - (Added by TW Conv) Personal history of other di seases of the respiratory system History of asthma - (Added b y TW Conv) Family History Medical History Relation Name Comments Ovarian cancer Other 1 Carcinoma Of The Ovary - (Added by TW Conv) Heart disease Other 2 Heart Disease - (Added by TW Conv) Ovarian cysts Other 3 Ovarian Cyst - (Added by TW Conv) Hypertension Other 4 Hypertension - (Added by TW Conv) Diabetes Other 5 Diabetes Mellit us - (Added by TW Conv) Anesthesia problems Neg Hx Relation Name Status Comments Other 1 Other 2 Other 3 Other 4 Other 5 Social History Tobacco Use Types Packs/Day Years Used Date Smoking Tobacco: Never Tobacco Cessation:Counseling Given: Not Answered AUDIT-C Answer Date Recorded Q1: How often do you have a drink containing alc ohol? 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 Gender Identity Female 09/07/2024 3:31 PM CDT Sexual Orientation Straight 09/07/2024 3: 31 PM CDT Obstetrics History Last Filed Vital Signs Vital Sign Reading Time Taken Comments Blood Pressure 102/64 09/07/2024 8:43 AM CDT Pulse 107 09/07/2024 8:43 AM CDT Temperature 36.6 C (97.9 F) 05/22/2022 5:54 PM CDT Respiratory Rate 16 05/22/2022 5:54 PM CDT Oxygen Saturation 100% 05/22/2022 5:54 PM CDT Inhaled Oxygen Concentration - - Weight 53.3 kg (117 lb 8 oz) 09/07/2024 8:43 AM CDT Height 170.2 cm (5' 7 ) 09/07/2024 8:43 AM CDT Body Mass Index 18.4 09/07/2024 8:43 AM CDT Plan of Treatment Health Maintenance Due Date Last Done Comments Cervical Cancer Screening 1998 Depression Screening 1998 Hepatitis C Screening 1998 Pneumococcal vaccine <65 (2 of 2 - PPSV23) 2004 06/06/2003 Regular Well Visit/Exam 18-64 2016 Influenza Vaccine (#1) 2024 9, 09/04/2011, 10/20/2006 DTaP/Tdap/Td Vaccine (8 - Td or Tdap) 12/11/2026 12/11/2016, 06/30/2013, 06/06/2003, Additional history exists Hepatitis B Screening Completed 04/06/1999 , 1998, 1998 Varicella Vaccines Completed 07/12/2010, 06/20/2003 HPV Vaccines Completed 04/06/2014, 11/18, 06/30/2013 Insurance [facility] [employer] Advance Directives For more information, please contact: [phone] * Full Code (Latest Code Status on File) Date Activated Date Inactivated Comments 05/22/2022 2:45 PM 05/22/2022 10:43 PM Care Teams Spanish Interpreter/Translator Relationship Specialty Start Date End Date Alphonse Cheema MD PCP - General Internal Medicine 02/27/22
--- OUTSIDE RECORDS SUMMARY | 2025-02-11 14:11 | XMS_ITS | Referral Summary ---
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[employer] Gender Identity Female 09/07/2024 3:31 PM CDT Sexual Orientation Straight 09/07/2024 3: 31 PM CDT Last Filed Vital Signs Vital Sign Reading [...] 09/07/2024 8:43 AM CDT Plan of Treatment Not on file Insurance [facility] IDPA Advance Directives For more information, please contact: [phone] * Full Code (Latest Code Status on File) Date Activated Date Inactivated Comments 05/22/2022 2:45 PM 05/22/2022 10:43 PM Care Teams Artifacts Conservator Relationship Specialty Start Date End Date Alphonse Cheema MD PCP - General Internal Medicine 02/27/22
--- OUTSIDE RECORDS SUMMARY | 2025-02-11 14:11 | XMS_ITS | Clinical Summary ---
Author Organization [facility] Address [address] [place] [address] Phone Care Team Providers Care Finance Admin Name Role Phone Unavailable Primary Care Provider Unavailabl e Social History Tobacco Use Types Packs/Day Years Used Date Smoking Tobacco: Never Assessed Comments Unknown Sex and Gender Information Value Date Recorded Sex Assigned at Not on file Legal Sex Female 10:33 AM CDT Gender Identity Not on file Sexual Orientation Not on file Plan of Treatment Health Maintenance Due Date Last Done Comments Hepatitis C Virus (HCV) Screening 1998 Pap Smear 2019 Influenza Immunization (#1) 2024 09/04/2011, 1 12/21/2005 SARS-COV-2 Immunization ( season) 2024 Respiratory Syncytial Virus (RSV) Immunization (Adult) (1 - 1-dose 75+ series) 2073 Hepatitis B Immunization Completed 999, 1998, 1998 Pneumococcal Immunization Combined Aged Out 06/06/2003 No longer eligible based on patient's age to complete this topic DTaP/Tdap/Td Immunization Discontinued 2012, 06/06/2003, 05/12/2000, Additional history exists TdaP Immunization Completed 06/30/2013 Human Papillomavirus (HPV) Immunization Completed 04/06/2014, 12/06/2013, 06/30/2013 Meningococcal Immunization (ACWY) Completed 08/30/2016, 06/30/2013 Rotavirus Immunization Aged Out No lo nger eligible based on patient's age to complete this topic
--- OUTSIDE RECORDS SUMMARY | 2025-02-11 14:11 | XMS_ITS | Encounter Summary ---
Author Organization [facility] Address [address] [place] [address] Care Team Providers Care Tray Service Worker Name Role Phone Alphonse Cheema MD Primary Care Provider [phone] Encounter Details Date Type Department Care Team (Late st Contact Info) Description 04/24/2019 Abstract SFL CONVERSION [address] [place] [address] , Generic ConversionMD Social History Tobacco Use Types Packs/Day Years Used Date Smoking Tobacco: Never Assessed Comments Unknown Sex and Gender Information Value Date Recorded Sex Assigned at Not on file 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 Gender Identity Not on file Sexual Orientation Not on file documented as of this encounter Plan of Treatment Not on file documented as of this encounter Visit Diagnoses Not on filedocumented in this encounter Additional Health Concerns Infection Onset Date Last Indicated Resolved Time COVID-19 Rule Out 09/13/2021 09/13/2021 09/13/2021 8:27 AM CDT COVID-19 Rule Out 11/22/2021 11/22/2021 11/22/2021 3:54 AM COTTON INSPECTOR documented as of this encounter Care Teams Tray Service Worker Relationship Specialty Start Date End Date Alphonse Cheema MD [address] [place] [address] PCP - General INTERNAL MEDICINE 09/13/21 documented as of this encounter
--- OUTSIDE RECORDS SUMMARY | 2025-02-11 14:11 | XMS_ITS | Clinical Summary ---
Author Organization [facility] Address [address] [place] [address] Care Team Providers Care Manager Of Global Name Role Phone Alphonse Cheema MD Primary Care Provider [phone] Allergies Active Allergy Reactions Criticality Noted Date Comments Penicillins Unknown 09/13/2021 Childhood allergy Sulfa Antibiotics Hives 07/11/2022 Medications LORazepam (ATIVAN) 0.5 MG tablet Take 0.25-0.5 mg by mouth 2 (two) times daily as needed. 2 Active famotidine (PEPCID) 40 MG tablet Take 40 mg by mouth daily. 2 Active SUMAtriptan (IMITREX) 25 MG tablet Take 1 tablet (25 mg total) by mouth as needed for Migraine (May repeat once in 2 hours if needed). Max of 8 tablets (200 mg) in 24 hours. 20 tablet 2 Active ondansetron (ZOFRAN-ODT) 4 MG disintegrating tablet Take 1 tablet (4 mg total) by mouth every 8 (eight) hours as needed for Nausea. 20 tablet 3 Active Social History Tobacco Use Types Packs/Day Years Used Date Smoking Tobacco: Never Smokeless Tobacco: Never Alcohol Use Standard Drinks/Week Comments Not Currently 0 (1 standard drink = 0.6 oz pur e alcohol) Comments No Sex and Gender Information Value Date Recorded Sex Assigned at Not on file Legal Sex Female 5:50 PM TECHNOLOGY INTERN Gender Identity Not on file Sexual Orientation Not on file Last Filed Vital Signs Vital Sign Reading Time Taken Comments Blood Pressure 113/73 08/09/2023 4:00 AM CDT Pulse 66 08/09/2023 5:30 AM CDT Temperature 36.6 C (97.9 F) 08/09/2023 2:08 AM CDT Respiratory Rate 15 08/09/2023 5:30 AM CDT Oxygen Saturation 100% 08/09/2023 5:30 AM CDT Inhaled Oxygen Concentration - - Weight 57.6 kg (127 lb) 08/09/2023 2:08 AM CDT Height 170.2 cm (5' 7 ) 08/09/2023 2:08 AM CDT Body Mass Index 19.89 08/09/2023 2:08 AM CDT Plan of Treatment Health Maintenance Due Date Last Done Comments Cervical Cancer Screening Pap Smear (Age 21 to 29) Every 3 Years 1998 Cervical Cancer Screening 1998 Annual Physical 2001 Hepatitis C 2016 COVID-19 Vaccine ( season) 2024 Influenza Adult (#1) 2024 09/10/2019, 09/04/2011, 10/20/2006 DTaP, Tdap and Td Vaccines (8 - Td or Tdap) 12/11/2026 12/11/2016, 06/30/2013, 06/06/2003, Additional history exists Hepatitis B Vaccines Completed 04/06/1999, 1998, 1998 Pneumococcal Vaccine: Pediatrics (0 to 5 Years) and At-Risk Patients (6 to 64 Years) Aged Out 06/06/2003 No longer eligible based on patient's age to complete this topic HPV Vaccines Completed 04/06/2014, 11/18, 06/30/2013 Meningococcal Vaccine Completed 08/30/2016, 013 Meningococcal B Vaccine Aged Out No l onger eligible based on patient's age to complete this topic RSV Immunizations Under 20 Months Aged Out No longer eligible based on patient's age to complete this topic Insurance [employer] Care Teams Manager Of Global Relationship Specialty Start Date End Date Alphonse Cheema MD [address] [place] [address] PCP - General INTERNAL MEDICINE 09/13/21
--- OUTSIDE RECORDS SUMMARY | 2025-02-11 14:11 | XMS_ITS | Clinical Summary ---
Author Organization [facility] Emily pacheco - 2022 Address [address] [facility] [address] [place] [address] Phone Care Team Providers Care Straightening Press Operator Name Role Phone Alphonse Cheema MD Primary Care Provider [phone] Social History Tobacco Use Types Packs/Day Years Used Date Smoking Tobacco: Never Assessed Comments Unknown Sex and Gender Information Value Date Recorded Sex Assigned at Not on file Legal Sex Female 2:11 PM CDT Gender Identity Not on file Sexual Orientation Not on file Plan of Treatment Health Maintenance Due Date Last Done Comments HPV VACCINES (1 - 3-dose series) 2013 DTAP/TDAP/TD VACCINES (1 - Tdap) 2017 HEPATITIS B VACCINES (1 of 3 - 19+ 3-dose series) 07/18 CERVICAL CANCER SCREENING 2019 PAP SMEAR 2019 PAP SMEAR 2019 INFLUENZA VACCINE (#1) 2024 Insurance [facility] [id number] Care Teams Straightening Press Operator Relationship Specialty Start Date End Date Alphonse Cheema MD [address] [place] [address] PCP - General Internal Medicine 09/17/16
[2025-02-17 17:17] LABS: Reference Lab Test Name Bacterial Vaginosis
== END 2025-02-11 14:06 | disposition home or self-care (01) ==
PROVIDERS: PCP Internal Medicine; Visit Provider Nurse Practitioner Family
DX: N76.0 Acute vaginitis (principal)
CPT/HCPCS: 36415; 87491; 87591; 87661

== ENCOUNTER 2025-02-22 09:15 | Outpatient (CLI) | payer OTHER, SELFPAY ==
--- OUTSIDE RECORDS SUMMARY | 2025-02-22 10:00 | XMS_ITS | Clinical Summary ---
Author Organization [facility] Emily pacheco - 2022 Address [address] [facility] [address] [place] [address] Phone Care Team Providers Care Automotive Airconditioning Mechanic Name Role Phone Alphonse Cheema MD Primary Care Provider [phone] Social History Tobacco Use Types Packs/Day Years [...] 3-dose series) 07/18 CERVICAL CANCER SCREENING 2019 HPV/Cotest (21-29) 2019 PAP SMEAR 2019 PAP SMEAR 2019 INFLUENZA VACCINE (#1) 2024 Insurance [facility] [id number] Care Teams Automotive Airconditioning Mechanic Relationship Specialty Start Date End Date Alphonse Cheema MD [address] [place] [address] PCP - General Internal Medicine 09/17/16
--- OUTSIDE RECORDS SUMMARY | 2025-02-22 10:00 | XMS_ITS | Referral Summary ---
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
--- OUTSIDE RECORDS SUMMARY | 2025-02-22 10:00 | XMS_ITS | Clinical Summary ---
Author Organization [facility] Address [address] [place] [address] Care Team Providers Care Kennel Helper Name Role Phone Alphonse Cheema MD Primary Care Provider [phone] Allergies Active Allergy Reactions Criticality Noted Date [...] on file Legal Sex Female 5:50 PM TOURISM RADIO PRESENTER Gender Identity Not on file Sexual Orientation [...] Physical 2001 Hepatitis C 2016 COVID-19 Vaccine (2023- season) 2024 DTaP, Tdap and Td Vaccines (8 - [...] patient's age to complete this topic Insurance [employer] Care Teams Kennel Helper Relationship Specialty Start Date End Date Alphonse Cheema MD [address] [place] [address] PCP - General INTERNAL MEDICINE 09/13/21
--- OUTSIDE RECORDS SUMMARY | 2025-02-22 10:00 | XMS_ITS | Clinical Summary ---
Author Organization [facility] Address [address] [place] [address] Phone Care Team Providers Care Shredding Machine Operator Name Role Phone Unavailable Primary Care Provider [...]
--- OUTSIDE RECORDS SUMMARY | 2025-02-22 10:00 | XMS_ITS | Clinical Summary ---
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 Assessment & Plan [...] on file Legal Sex Female 8:18 AM JAR CAPPER Gender Identity Female 09/07/2024 3:31 PM CDT [...] Regular Well Visit/Exam 18-64 2016 Influenza Vaccine (Season Ended) 2025 09/10/2019, 09/04/2011, 10/20/2006 DTaP/Tdap/Td Vaccine (8 - Td or Tdap) 12/11/2026 12/11/2016, 06/30/2013, 06/06/2003, Additional history exists Hepatitis B Screening Completed 04/06/1999 , 1998, 1998 Varicella Vaccines Completed 07/12/2010, 06/20/2003 HPV Vaccines Completed 04/06/2014, 11/18, 06/30/2013 Insurance [facility] IDPA Advance Directives For more information, please contact: [phone] * Full Code (Latest Code Status on File) Date Activated Date Inactivated Comments 05/22/2022 2:45 PM 05/22/2022 10:43 PM Care Teams Printing Table Worker Relationship Specialty Start Date End Date Alphonse Cheema MD PCP - General Internal Medicine 02/27/22
--- OUTSIDE RECORDS SUMMARY | 2025-02-22 10:00 | XMS_ITS | Encounter Summary ---
Author Organization [facility] Address [address] [place] [address] Care Team Providers Care Individualized Education Plan Aide Name Role Phone Alphonse Cheema MD Primary Care Provider [phone] Encounter Details Date Type Department Care Team (Late st Contact Info) Description 04/24/2019 Abstract SFL CONVERSION [address] [place] [address] , Generic ConversionMD Social History Tobacco Use Types Packs/Day Years Used Date Smoking Tobacco: Never Assessed Comments Unknown Sex and Gender Information Value Date Recorded Sex Assigned at Not on file Legal Sex Female 5:50 PM DIRECTOR OF ADULT EPILEPSY Gender Identity Not on file Sexual Orientation Not on file documented as of this encounter Plan of Treatment Not on file documented as of this encounter Visit Diagnoses Not on filedocumented in this encounter Additional Health Concerns Infection Onset Date Last Indicated Resolved Time COVID-19 Rule Out 09/13/2021 09/13/2021 09/13/2021 8:27 AM CDT COVID-19 Rule Out 11/22/2021 11/22/2021 11/22/2021 3:54 AM DIRECTOR OF ADULT EPILEPSY documented as of this encounter Care Teams Individualized Education Plan Aide Relationship Specialty Start Date End Date Alphonse Cheema MD [address] [place] [address] PCP - General INTERNAL MEDICINE 09/13/21 documented as of this encounter
[2025-02-22 10:32] LABS: HIV 1/2 Ab P24 Ag Result Negative (Negative)
[2025-02-22 11:14] LABS: Hepatitis B Surface Antigen Negative (Negative)
[2025-02-22 11:31] LABS: Hepatitis C Virus Antibody Negative (Negative)
[2025-02-24 05:34] LABS: RPR Screen NON-REACTIVE (NON-REACTIVE)
== END 2025-02-22 09:16 | disposition home or self-care (01) ==
PROVIDERS: PCP Internal Medicine; Visit Provider Nurse Practitioner Family
DX: Z11.3 Encounter for screening for infections with a predominantly sexual mode of transmission (principal)
CPT/HCPCS: 36415; 86592; 86703; 86803; 87340; G0432

== ENCOUNTER 2025-03-08 12:48 | Outpatient (CLI) | payer OTHER, SELFPAY ==
--- NOTE | ~2025-03-08 | US_ITS ---
EXAMINATION: US pelvic complete w TV INDICATION: Evaluate intrauterine device Comparison:No prior studies for comparison. TECHNIQUE: Multiple transabdominal and endovaginal sonographic images of the pelvis performed. FINDINGS: The uterus measures 7.9 x 5 x 3.6 cm. The endometrial complex measures 2 mm IUD is identifi ed in the endometrium.. The right ovary measures 3.8 x 2.5 x 3.2 cm and the left ovary measures 3.1 x 2.5 x 2.8 cm. There ar e small follicles in each ovary. Normal doppler signal in both ovaries. There is free fluid in the pelvis. There are no abnormal masses seen on either side. IMPRESSION: 1. Unremarkable pelvic ultrasound. IUD present in the endometrium. Reviewed, dictated and finalized at location A.
--- OUTSIDE RECORDS SUMMARY | 2025-03-08 14:18 | XMS_ITS | Referral Summary ---
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
--- OUTSIDE RECORDS SUMMARY | 2025-03-08 14:18 | XMS_ITS | Clinical Summary ---
Author Organization [facility] Address [address] [place] [address] Care Team Providers Care Epic Director Name Role Phone Alphonse Cheema MD Primary Care Provider [phone] Allergies Active Allergy Reactions Criticality Noted Date [...] on file Legal Sex Female 5:50 PM SUPERVISOR LACE TEARING Gender Identity Not on file Sexual Orientation [...] 5 Years) and At-Risk Patients (6 to 49 Years) Aged Out 06/06/2003 No longer eligible [...] complete this topic Insurance [employer] Care Teams Epic Director Relationship Specialty Start Date End Date Alphonse Cheema MD [address] [place] [address] PCP - General INTERNAL MEDICINE 09/13/21
--- OUTSIDE RECORDS SUMMARY | 2025-03-08 14:18 | XMS_ITS | Clinical Summary ---
Author Organization [facility] Emily pacheco - 2022 Address [address] [facility] [address] [place] [address] Phone Care Team Providers Care Engraver Hand Soft Metals Name Role Phone Alphonse Cheema MD Primary Care Provider [phone] Social History Tobacco Use Types Packs/Day Years [...] 2019 HPV/Cotest (21-29) 2019 PAP SMEAR 2019 INFLUENZA VACCINE (#1) [address] [facility] [id number] Care Teams Engraver Hand Soft Metals Relationship Specialty Start Date End Date Alphonse Cheema MD [address] [place] [address] PCP - General Internal Medicine 09/17/16
--- OUTSIDE RECORDS SUMMARY | 2025-03-08 14:18 | XMS_ITS | Clinical Summary ---
Author Organization [facility] Address [address] [place] [address] Phone Care Team Providers Care Project Administrator Name Role Phone Unavailable Primary Care Provider [...]
--- OUTSIDE RECORDS SUMMARY | 2025-03-08 14:18 | XMS_ITS | Encounter Summary ---
Author Organization [facility] Address [address] [place] [address] Care Team Providers Care Sole Rounder Name Role Phone Alphonse Cheema MD Primary Care Provider [phone] Encounter Details Date Type Department Care Team (Late st Contact Info) Description 04/24/2019 Abstract SFL CONVERSION [address] [place] [address] , Generic ConversionMD Social History Tobacco Use Types Packs/Day Years Used Date Smoking Tobacco: Never Assessed Comments Unknown Sex and Gender Information Value Date Recorded Sex Assigned at Not on file Legal Sex Female 5:50 PM OFFICE ANALYST Gender Identity Not on file Sexual Orientation Not on file documented as of this encounter Plan of Treatment Not on file documented as of this encounter Visit Diagnoses Not on filedocumented in this encounter Additional Health Concerns Infection Onset Date Last Indicated Resolved Time COVID-19 Rule Out 09/13/2021 09/13/2021 09/13/2021 8:27 AM CDT COVID-19 Rule Out 11/22/2021 11/22/2021 11/22/2021 3:54 AM OFFICE ANALYST documented as of this encounter Care Teams Sole Rounder Relationship Specialty Start Date End Date Alphonse Cheema MD [address] [place] [address] PCP - General INTERNAL MEDICINE 09/13/21 documented as of this encounter
--- OUTSIDE RECORDS SUMMARY | 2025-03-08 14:18 | XMS_ITS | Clinical Summary ---
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
== END 2025-03-08 12:49 | disposition home or self-care (01) ==
LOC: CHSIMG 12:49
PROVIDERS: PCP Internal Medicine; Visit Provider Nurse Practitioner Family
DX: T83.32XA Displacement of intrauterine contraceptive device, initial encounter (principal)
CPT/HCPCS: 76830; 76856

== ENCOUNTER 2025-04-29 01:18 | Day surgery (SDC) | payer OTHER, SELFPAY ==
--- NOTE | 2025-04-21 09:13 | SUR.PREOP ---
Report to the Outpatient Waiting Room, entrance under the green pavilion located off [facility], at time _0900_ on date _04/29/2025_. Planned Procedure Time: _1100_.? Time changes happen often and if your time is changed the preop area will call you the afternoon before. - You and your visitor will be asked to self-screen and do not enter if you have any COVID symptoms. Please call surgeon if you need to reschedule. - A mask is optional within the hospital at this time. Patients may have clear liquids (water, carbonated beverages, clear teas, apple juice) until 3 hours (0800) prior to surgery with a maximum of 20 ounces. - No food from midnight until time of surgery and no smoking, or chewing tobacco (or any form of nicotine). No chewing gum, candy or mints. Take only the following medications with a SIP of water on the morning of surgery: _lorazepam if needed_ DO NOT STOP ANY OF YOUR OTHER PRESCRIPTION MEDICATIONS PRIOR TO SURGERY EXCEPT THE FOLLOWING Hold all vitamins and supplements for 3 days per anesthesiologist. Medications to discontinue per physician _NA_ Date to take last dose_NA_ Please no make-up, nail somali, hairspray, perfume, deodorant, or body powder the day of surgery.? No jewelry (including any body piercings) or valuables the day of surgery, leave them at home.? Please take a shower or bath the night before, or the morning of, surgery with an antibacterial soap. - Jewelry must be removed prior to entering the operating room.? Rings and piercings that are not removed may be cut off. - The hospital will not accept responsibility for valuables.? - Please leave all valuables, including medications, at home the day of surgery. If you are going home after surgery, a licensed bobcat driver/labor must drive you home.? - NO public transportation without another adult if you receive anesthesia. - We recommend that an adult stay with you for 24 hours following discharge. - We also recommend that you do not drive, make important decision, drink alcoholic beverages, or take any drugs that were not prescribed by your health care provider for at least 24 hours after your discharge time. Follow any additional instructions given to you from your surgeon. Telephone instructions given to _Black_and asked if any additional questions and then verbalized understanding. Patient advised to call surgeon office or pre surgery nurse liaison [phone] if any additional questions.
[2025-04-21 09:25] VITALS: BMI 19.6
--- OUTSIDE RECORDS SUMMARY | 2025-04-29 01:21 | XMS_ITS | Clinical Summary ---
Author Organization [facility] Emily pacheco - 2022 Address [address] [facility] [address] [place] [address] Phone Care Team Providers Care Steward/Stewardess Lounge Name Role Phone Alphonse Cheema MD Primary Care Provider [phone] Social History Tobacco Use Types Packs/Day Years [...] SMEAR 2019 INFLUENZA VACCINE (#1) 2024 Insurance [facility] [id number] Care Teams Steward/Stewardess Lounge Relationship Specialty Start Date End Date Alphonse Cheema MD [address] [place] [address] PCP - General Internal Medicine 09/17/16
--- OUTSIDE RECORDS SUMMARY | 2025-04-29 01:21 | XMS_ITS | Clinical Summary ---
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
--- OUTSIDE RECORDS SUMMARY | 2025-04-29 01:21 | XMS_ITS | Referral Summary ---
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
--- OUTSIDE RECORDS SUMMARY | 2025-04-29 01:21 | XMS_ITS | Clinical Summary ---
Author Organization [facility] Address [address] [place] [address] Phone Care Team Providers Care Tax Examiner Name Role Phone Unavailable Primary Care Provider [...]
[2025-04-29 09:30] VITALS: BMI 19.4
[2025-04-29 09:32] LABS: BEDSIDEPREGUCG Negative (Negative)
[2025-04-29] MEDS: LACTATED RINGERS 1,000 ML 30 ML IV CONT (09:40)
[2025-04-29] MEDS: ACETAMINOPHEN 500 MG TABLET 1000 MG PO (09:45)
[2025-04-29 09:50] VITALS: BP 118/74; PULSE 75; RESP 18; TEMP 36.5; O2SAT 99
--- NOTE | 2025-04-29 10:15 | P.PNAN_ITS ---
Anes - Initial Pre Proc Eval Procedure: Operation Date: 04/29/25 11:00 Proposed Procedures p Loop Electrical Excision Procedure - Javan Saha MD Date/Time: 04/29/25 10:15 Surgeon: Javan Saha MD Pre Op Diagnosis: HAILEY 2 Patient Data Age: 24 Gender: F Height: 1.7 m Weight: 56.35 kg Last Vital Signs Temp 36.5 C 04/29/25 09:50 Pulse 75 04/29/25 09:50 Resp 18 04/29/25 09:50 BP 118/74 04/29/25 09:50 Pulse Ox 99 04/29/25 09:50 O2 Del Method Room Air 04/29/25 09:50 Allergies Allergy/AdvReac Type Severity Reaction Status Date / Time Penicillins Allergy Severe Hives Verified 04/29/25 09:29 Sulfa (Sulfonamide Allergy Hives Verified 04/29/25 09:29 Antibiotics) Home Medications ?Medication ?Instructions ?Recorded ?Confirmed ?Type ondansetron 4 mg disintegrating 4 mg PO Q8H PRN nausea and 12/05/24 04/21/25 Rx tablet vomiting #10 tabs lorazepam 0.5 mg tablet 0.5 mg PO DAILY PRN anxiety 02/22/25 04/29/25 History etonogestrel 0.12 mg-ethinyl 1 vag ring vaginal ONCE #3 ea 04/15/25 04/21/25 Rx estradiol 0.015 mg/24 hr vaginal ring (NuvaRing) omeprazole 40 mg capsule,delayed 40 mg PO DAILY 04/21/25 04/29/25 History release Laboratory Tests 04/29/25 09:30 POC Urine HCG, Qual Negative (Negative) Patient hx anesthesia problems: none Family hx anesthesia problems: none Results Review: All pre-operative results and documents have been reviewed as part of the pre- operative evaluation. [facility] Past Medical History Medical History Asthma Thyroid disease Adnexal fullness Body mass index [BMI] pediatric, less than 5th percentile for age (01/30/18) Diarrhea Encounter for supervision of normal first , second trimester Encounter for supervision of normal first , third trimester Encounter for IUD insertion Encounter for visit Encounter for test, result negative IUD check up Pelvic pain in female Supervision of high risk in third trimester Supervision of other high risk pregnancies, second trimester Vaginal bleeding Anxiety Goiter Surgical History Surgical History Hx of parathyroidectomy Family History Family History Grandparent Diabetes mellitus Hypertension Mother Asthma Sibling Asthma Other Family history of malignant neoplasm of cervix Social History Social History Smoking status: Never smoker Second hand tobacco smoke exposure: Yes Alcohol intake: current Drinks per week: 1 Alcohol use details: SOCIALLY Substance use: current Substance use type: marijuana Other substance usage details: smokes marijuana daily Last use: 06/25/2024 Do You Feel Safe in your Home?: Yes Lack of Transportation: YES Lack of Food: Never True Current Housing: I Have Housing Concerned About Future Housing: No Difficulty Paying Gas/Electric Bills: YES Difficulty Paying for Meds: YES Currently Unemployed: YES Education: High School Diploma/GED Difficulty w/ Childcare or Family Care: No Living arrangements: alone Gender identity (if verbalized by the patient): Female Spiritual care concerns: No Anes - Eval Final PreProcedure Day of Procedure 04/29/25 10:15 Patient weight: normal Heart: regular rate and rhythm Lungs: clear to auscultation Airway: Mallampati scale class II Neurological: alert and oriented Last oral intake: >/= 8 hours ASA classification: II Emergent: no Anesthetic plan: proceed Anesthesia type and monitoring: general GIVS and standard monitoring Results Review: All pre-operative results and documents have been reviewed as part of the pre- operative evaluation. Informed Consent: The patient's anesthetic plan and its attendant risks and benefits were discussed with the patient/family/POA. Questions were solicited and answers provided to the satisfaction of the patient/family/POA.
--- NOTE | 2025-04-29 10:17 | WPDHPUPDATE1 ---
History and Physical Update Update Date/Time: 04/29/25 10:17 History and Physical has been reviewed, including an updated exam of the patient. There are NO changes in the patient's condition. Risks, benefits, and alternatives have been discussed and questions answered. Patient agrees to proceed with procedure.
[2025-04-29] MEDS: ceFAZolin 2 GM/D5W 50 ML 2 GM/50 ML BAG IVPB (10:24)
--- NOTE | 2025-04-29 10:40 | S_PTH ---
PATIENT: Black Collado LOC: [facility] U#:[id number] AGE/SX: 24/F ROOM: RE04/29/[address]: Javan Saha MD : 2000 BED: DIS: 04/29/2025 SPEC #: [id number] RECD: 04/29/25 13:18 STATUS: ANAID REQ #: [id number] OLIVERIO: 04/29/25 10:[address]: Javan Saha DEPT: [facility] Surgical RECD BY: Catarina Draper ENTERED: 04/29/25 13:18 SP TYPE: Surgical OTHR DR: Alphonse Cheema MD Tissues: A - Leep/Cone B - Leep/Cone Procedures: Hematoxylin and Eosin Stain Gross and Microscopic Level 5 P53 P16
[2025-04-29] MEDS: LIDO 1%/EPINEPHRINE 1:100,000 50 ML VIAL 15 ML INFILTRATE (10:42)
[2025-04-29 10:45] VITALS: BP 114/65; PULSE 71; RESP 16; O2SAT 100
--- NOTE | 2025-04-29 10:47 | W.PM.PROC2 ---
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 She was then prepped and draped in the usual sterile fashion and placed in the dorsal lithotomy position. A Graves speculum was placed in the vagina. Lugol?s solution was painted along the entire cervix and vaginal wall. Areas of non-uptake were noted to be around the entire squamocolumnar junction. 15 cc of lidocaine with epinephrine was injected at surgical site. The large loop electrode was used to remove the anterior or top portion of the cervix and a separate posterior specimen which included all of the hypopigmented area was excised and sent to pathology. The bed of the excised cervical tissue along the cervix was cauterized using the roller ball. Hemostasis was noted. All instruments were removed from vagina at this point. The patient tolerated the procedure well without complication and was taken to the recovery room in stable condition. Estimated Blood Loss 5 Pathology Yes (anterior and post LEEP) Complications No immediate complications Condition Stable Disposition Same day [facility] Billing Surgery - Charge Forward: Surgery Billing
[2025-04-29 11:18] VITALS: BP 108/62; PULSE 78; RESP 16; O2SAT 100
[2025-04-29 11:45] VITALS: BP 116/70; PULSE 66; RESP 16
== END 2025-04-29 12:10 | disposition home or self-care (01) ==
PROVIDERS: Anesthesiology; PCP Internal Medicine; Visit Provider Obstetrics & Gynecology
PROC: 0UBC7ZZ Excision of Cervix, Via Natural or Artificial Opening (ICD-10-PCS; CPT 57522; principal; 2025-04-29 11:00)
DX: R87.612 Low grade squamous intraepithelial lesion on cytologic smear of cervix (LGSIL) (principal); N85.8 Other specified noninflammatory disorders of uterus; N72 Inflammatory disease of cervix uteri; J45.909 Unspecified asthma, uncomplicated; E07.9 Disorder of thyroid, unspecified; F41.9 Anxiety disorder, unspecified; Z98.890 Other specified postprocedural states; F12.90 Cannabis use, unspecified, uncomplicated; Z80.49 Family history of malignant neoplasm of other genital organs
CPT/HCPCS: 57522; 88307; 88342; A9270; J0690; J2003; J2004; J2250; J2704; J3010; J7120

== ENCOUNTER 2025-05-17 14:07 | Outpatient (CLI) | payer OTHER, SELFPAY ==
--- OUTSIDE RECORDS SUMMARY | 2025-05-17 14:12 | XMS_ITS | Clinical Summary ---
Author Organization [employer] Emily pacheco - 2022 Address [address] [facility] [address] [place] [address] Phone Care Team Providers Care Validation Software Facilitator Name Role Phone Alphonse Cheema MD Primary Care Provider [phone] Social History Tobacco Use Types Packs/Day Years [...] 2019 PAP SMEAR 2019 INFLUENZA VACCINE (#1) 2025 Insurance [facility] [id number] Care Teams Validation Software Facilitator Relationship Specialty Start Date End Date Alphonse Cheema MD [address] [place] [address] PCP - General Internal Medicine 09/17/16
--- OUTSIDE RECORDS SUMMARY | 2025-05-17 14:12 | XMS_ITS | Referral Summary ---
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
--- OUTSIDE RECORDS SUMMARY | 2025-05-17 14:12 | XMS_ITS | Clinical Summary ---
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
--- OUTSIDE RECORDS SUMMARY | 2025-05-17 14:12 | XMS_ITS | Clinical Summary ---
Author Organization [facility] Address [address] [place] [address] Phone Care Team Providers Care Facility Examiner Name Role Phone Unavailable Primary Care [...]
--- OUTSIDE RECORDS SUMMARY | 2025-05-17 14:12 | XMS_ITS | Encounter Summary ---
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 Gender Identity Not on file Sexual Orientation Not on file documented as of this encounter Plan of Treatment Not on file documented as of this encounter Visit Diagnoses Not on filedocumented in this encounter Additional Health Concerns Infection Onset Date Last Indicated Resolved Time COVID-19 Rule Out 09/13/2021 09/13/2021 09/13/2021 8:27 AM CDT COVID-19 Rule Out 11/22/2021 11/22/2021 11/22/2021 3:54 AM MINIATURE TRAIN DRIVER documented as of this encounter Care Teams Team Lead Relationship Specialty Start Date End Date Alphonse Cheema MD [address] [place] [address] PCP - General INTERNAL MEDICINE 09/13/21 documented as of this encounter
--- OUTSIDE RECORDS SUMMARY | 2025-05-17 14:12 | XMS_ITS | Clinical Summary ---
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
[2025-05-17 15:03] LABS: Hematocrit 42.3 % (37.0-47.0); Hemoglobin 14.1 g/dL (12.0-15.0); Mean Corpuscular HGB Conc 33.3 g/dl (32-36); Mean Corpuscular Hemoglobin 31.7 pg (26-34); Mean Corpuscular Volume 95.1 fl (80-100); Platelet Count Result 340 k/mm3 (150-375); Red Blood Count 4.45 M/mm3 (4.2-5.4); White Blood Count 10.8 K/mm3 (4.5-10.0)
== END 2025-05-17 14:08 | disposition home or self-care (01) ==
LOC: ANHLAB 14:09
PROVIDERS: PCP Internal Medicine; Visit Provider Obstetrics & Gynecology
DX: N92.0 Excessive and frequent menstruation with regular cycle (principal)
CPT/HCPCS: 36415; 85027

== ENCOUNTER 2025-05-28 15:57 | Emergency (ER) | payer OTHER, MEDICAID, SELFPAY ==
[2025-05-28 15:57] VITALS: BP 115/69; PULSE 72; RESP 18; TEMP 36.2; O2SAT 100
--- OUTSIDE RECORDS SUMMARY | 2025-05-28 16:03 | XMS_ITS | Clinical Summary ---
Author Organization [employer] Emily pacheco - [birth year]22 Address [address] [facility] [address] [place] [address] Phone Care Team Providers Care Oil Gauger Name Role Phone Alphonse Cheema MD Primary Care Provider [phone] Social History Tobacco Use Types Packs/Day Years [...] SMEAR 2019 INFLUENZA VACCINE (#1) 2025 Insurance [facility] [id number] Care Teams Oil Gauger Relationship Specialty Start Date End Date Alphonse Cheema MD [address] [place] [address] PCP - General Internal Medicine 09/17/16
--- OUTSIDE RECORDS SUMMARY | 2025-05-28 16:03 | XMS_ITS | Continuity of Care Document ---
Author Organization [facility] Address [address] [place] [address] Phone Care Team Providers Care Salesperson Sheet Music Name Role Phone Unavailable Unavailable Unavailable Advance Directives Directive Yes / No Effective Date File Name No Information Encounters Encounter Description Practice Location Reason(s) For Visit Diagnoses Date Provider Providers Copied on Encounter [facility], [address] [facility], [place], [place], [id number], tel:[phone] [facility] No Information 0 7 No Information Referring Provider: DARYL GONSALEZ, [address] [place] [address],[place], [address]. tel:[phone] Family History Family Member Type Diagnosis Age At Onset No Information Payers Payer name Insurance type Covered libertarian ID Authoriza lyndonadry(s) [facility] POS [id number] CI [id number] Social History Type Description Quantity Date Captured Comments Sex Female Smoking Status No Information Chief Complaint And Reason For Visit No Information History Of Present Illness Encounter Date Complaint History Of Prese nt Illness No Information Instructions Date Instruction Additional Infor mation No Information Assessments Type Assessment Date No Information
--- OUTSIDE RECORDS SUMMARY | 2025-05-28 16:04 | XMS_ITS | Clinical Summary ---
Author Organization [facility] Address [facility] [place] [address] Care Team Providers Care Pattern Duplicator Name Role Phone Alphonse Cheema MD Primary Care Provider [phone] Allergies Active Allergy Reactions Criticality Noted Date [...] needed for Nausea. 20 tablet 3 Active Active Problems No known active problems Encounters Date Type Department Care Team Description 05/20/2025 10:00 PM CDT - 05/20/2025 10:38 PM CDT Emergency [facility] [address] [place] [address] [place] [address] Nomi Pagan DO Leg Pain Discharge Disposition: Home or Self Care (Routine Discharge) 05/20/2025 Travel from Last 3 Months Social History Tobacco Use Types Packs/Day Years Used Date Smoking Tobacco: Never Smokeless Tobacco: Never Alcohol Use Standard Drinks/Week Comments Not Currently 0 (1 standard drink = 0.6 oz pur e alcohol) Comments No Sex and Gender Information Value Date Recorded Sex Assigned at Not on file 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 Gender Identity Not on file Sexual Orientation Not on file Last Filed Vital Signs Vital Sign Reading Time Taken Comments Blood Pressure 141/83 05/20/2025 10:03 PM CDT Pulse 110 05/20/2025 10:03 PM CDT Temperature 36.3 C (97.3 F) 05/20/2025 10:03 PM CDT Respiratory Rate 18 05/20/2025 10:03 PM CDT Oxygen Saturation 98% 05/20/2025 10:03 PM CDT Inhaled Oxygen Concentration - - Weight 57.6 kg (127 lb) 05/20/2025 10:03 PM CDT Height 170.2 cm (5' 7) 05/20/2025 10:03 PM CDT Body Mass Index 19.89 05/20/2025 10:03 PM CDT Plan of Treatment Health Maintenance Due Date Last Done Comments Cervical Cancer Screening Pap Smear (Age 21 to 29) Every 3 Years 1998 Cervical Cancer Screening 1998 Annual Physical 2001 Hepatitis C 2016 COVID-19 Vaccine ( season) 2024 DTaP, Tdap and Td Vaccines [...] patient's age to complete this topic Insurance [email or web address] Care Teams Pattern Duplicator Relationship Specialty Start Date End Date Alphonse Cheema MD [address] [place] [address] PCP - General INTERNAL MEDICINE 09/13/21
--- OUTSIDE RECORDS SUMMARY | 2025-05-28 16:04 | XMS_ITS | Clinical Summary ---
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 Gender Identity Female 09/07/2024 3:31 PM CDT [...] Well Visit/Exam 18-64 2016 Influenza Vaccine (#1) 2025 9, 09/04/2011, 10/20/2006 DTaP/Tdap/Td Vaccine (8 - Td or Tdap) 12/11/2026 12/11/2016, 06/30/2013, 06/06/2003, Additional history exists Hepatitis B Screening Completed 04/06/1999 , 1998, 1998 Varicella Vaccines Completed 07/12/2010, 06/20/2003 HPV Vaccines Completed 04/06/2014, 11/18, 06/30/2013 Insurance [facility] IDPA Advance Directives For more information, please contact: [phone] * Full Code (Latest Code Status on File) Date Activated Date Inactivated Comments 05/22/2022 2:45 PM 05/22/2022 10:43 PM Care Teams Equity Manager Relationship Specialty Start Date End Date Alphonse Cheema MD PCP - General Internal Medicine 02/27/22
--- OUTSIDE RECORDS SUMMARY | 2025-05-28 16:04 | XMS_ITS | Referral Summary ---
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
--- OUTSIDE RECORDS SUMMARY | 2025-05-28 16:04 | XMS_ITS | Encounter Summary ---
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 Gender Identity Not on file Sexual Orientation Not on file documented as of this encounter Plan of Treatment Not on file documented as of this encounter Visit Diagnoses Not on filedocumented in this encounter Additional Health Concerns Infection Onset Date Last Indicated Resolved Time COVID-19 Rule Out 09/13/2021 09/13/2021 09/13/2021 8:27 AM CDT COVID-19 Rule Out 11/22/2021 11/22/2021 11/22/2021 3:54 AM RUBBER GOODS ASSEMBLER documented as of this encounter Care Teams Administrative Aide Relationship Specialty Start Date End Date Alphonse Cheema MD [address] [place] [address] PCP - General INTERNAL MEDICINE 09/13/21 documented as of this encounter
[2025-05-28] MEDS: SODIUM CHLORIDE 0.9% IV 1,000 ML 999 ML IV CONT (16:17)
[2025-05-28] MEDS: ONDANSETRON INJ 4 MG/2 ML VIAL IV PUSH (16:18)
[2025-05-28] MEDS: PANTOPRAZOLE SODIUM IV 40 MG VIAL IV PUSH (16:18)
--- NOTE | 2025-05-28 16:29 | ED.NAVMDI ---
HPI - Nausea/Vomiting/Diarrhea General Chief complaint: Nausea/Vomiting/Diarrhea Stated complaint: vomiting after drinking excessively Time Seen by Provider: 05/28/25 16:04 Source: patient and family Mode of arrival: wheelchair Limitations: no limitations History of Present Illness HPI Narrative: this is a 24-year-old female no significant past medical history presents with nausea epigastric discomfort after she binged on alcohol the previous night, currently no fever chills no chest pain no shortness of breath. MD elicited complaint: nausea and vomiting Onset (ago): day(s) Pain consistency: intermittent Severity: moderate Related Data Home Medications ?Medication ?Instructions ?Recorded ?Confirmed ?Last Taken ?Type lorazepam 0.5 mg tablet 0.5 mg PO DAILY PRN anxiety 02/22/25 04/29/25 04/28/25 History omeprazole 40 mg capsule,delayed 40 mg PO DAILY 04/21/25 04/29/25 04/28/25 History release Allergies Allergy/AdvReac Type Severity Reaction Status Date / Time Penicillins Allergy Severe Hives Verified 05/28/25 16:01 Sulfa (Sulfonamide Allergy Hives Verified 05/28/25 16:01 Antibiotics) Review of Systems Review of Systems: All systems reviewed & are unremarkable except as noted in HPI and below PMFSH Past Medical History Medical History Asthma Thyroid disease Adnexal fullness Body mass index [BMI] pediatric, less than 5th percentile for age (01/30/18) Diarrhea Encounter for supervision of normal first , second trimester Encounter for supervision of normal first , third trimester Encounter for IUD insertion Encounter for visit Encounter for test, result negative IUD check up Pelvic pain in female Supervision of high risk in third trimester Supervision of other high risk pregnancies, second trimester Vaginal bleeding Anxiety Goiter Surgical History Surgical History H/O wisdom tooth extraction Hx of parathyroidectomy Family History Family History Grandparent Diabetes mellitus Hypertension Mother Asthma Sibling Asthma Other Family history of malignant neoplasm of cervix Social History Social History Smoking status: Never smoker Second hand tobacco smoke exposure: Yes Alcohol intake: current Drinks per week: 1 Alcohol use details: SOCIALLY Substance use: current Substance use type: marijuana Other substance usage details: smokes marijuana daily Last use: 06/25/2024 Do You Feel Safe in your Home?: Yes Lack of Transportation: YES Lack of Food: Never True Current Housing: I Have Housing Concerned About Future Housing: No Difficulty Paying Gas/Electric Bills: YES Difficulty Paying for Meds: YES Currently Unemployed: YES Education: High School Diploma/GED Difficulty w/ Childcare or Family Care: No Living arrangements: alone Gender identity (if verbalized by the patient): Female Spiritual care concerns: No Exam Const: General: healthy appearing and no acute distress Nutritional Appearance: well nourished Limitations: no limitations HENMT: Head: normal to inspection Neck: Neck: normal visual inspection Chest: Chest palpation & inspection: normal inspection of the chest Resp: Effort & Inspection: normal respiratory effort Auscultation: clear to auscultation bilaterally Cardio: Rate: regular rate Rhythm: regular rhythm GI: GI Palp: Yes Soft to palpation Auscultation: normal bowel sounds Urinary Catheter: Urinary Catheter: patent and draining Back/Spine/Pelvis: Back: no CVA tenderness Skin: General skin exam: normal color Neuro: General: patient oriented x3, moves all extremities, no meningeal signs and no focal motor deficits Extrem: General: normal to inspection, no clubbing, cyanosis or edema and no pedal edema Course Course Emergency Course: Patient received IV fluids with normal saline IV Protonix and IV Zofran after reassessment patient's symptoms have improved Vital Signs Vital signs: Vital Signs Temperature 36.2 C L 05/28/25 15:57 Pulse Rate 72 05/28/25 15:57 Respiratory Rate 18 05/28/25 15:57 Blood Pressure 115/69 05/28/25 15:57 Pulse Oximetry 100 05/28/25 15:57 Oxygen Delivery Room Air 05/28/25 15:57 Temperature 36.2 C L 05/28/25 15:57 Pulse Rate 72 05/28/25 15:57 Respiratory Rate 18 05/28/25 15:57 Blood Pressure 115/69 05/28/25 15:57 Pulse Oximetry 100 05/28/25 15:57 Oxygen Delivery Room Air 05/28/25 15:57 Critical Care Time Critical Care Time Critical Care Time: No Discharge Plan Discharge Clinical Impression: Alcohol intoxication Qualifiers: Complication of substance-induced condition: uncomplicated Qualified Code(s): F10.920 - Alcohol use, unspecified with intoxication, uncomplicated Nausea & vomiting Qualifiers: Vomiting type: unspecified Qualified Code(s): R11.2 - Nausea with vomiting, unspecified Patient Disposition: Home Condition: Stable Instructions: Antibiotic Form, Alcohol Intoxication (ED), Acute Nausea and Vomiting (ED) Additional Instructions: advised to take medication as prescribed and to follow with primary care physician if symptoms persist or worsen. Patient Language: Mongolian Prescriptions: New ondansetron 4 mg tablet,disintegrating 4 mg PO Q6H PRN (Reason: nausea and vomiting) Qty: 10 0RF pantoprazole [Protonix] 40 mg tablet,delayed release (DR/EC) 40 mg PO QAM Qty: 7 0RF No Action ondansetron 4 mg tablet,disintegrating 4 mg PO Q8H PRN (Reason: nausea and vomiting) Qty: 10 0RF lorazepam 0.5 mg tablet 0.5 mg PO DAILY PRN (Reason: anxiety) etonogestrel-ethinyl estradiol [NuvaRing] 0.12-0.015 mg/24 hr ring 1 vag ring vaginal ONCE Qty: 3 3RF omeprazole 40 mg capsule,delayed release(DR/EC) 40 mg PO DAILY Follow-up/Referrals: Alphonse Cheema MD [Primary Care Provider] - Time of Disposition: 16:34
--- OUTSIDE RECORDS SUMMARY | 2025-05-28 16:33 | XMS_ITS | Clinical Summary ---
Author Organization [facility] pacheco - [address]22 [address] [facility] [address] [place] [address] Phone Care Team Providers Care Photo Technologist Name Role Phone Alphonse Cheema MD Primary Care Provider [phone] Social History Tobacco Use Types Packs/Day Years [...] SMEAR 2019 INFLUENZA VACCINE (#1) 2025 Insurance [facility] [id number] Care Teams Photo Technologist Relationship Specialty Start Date End Date Alphonse Cheema MD [address] [place] [address] PCP - General Internal Medicine 09/17/16
--- OUTSIDE RECORDS SUMMARY | 2025-05-28 16:33 | XMS_ITS | Encounter Summary ---
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 Gender Identity Not on file Sexual Orientation Not on file documented as of this encounter Plan of Treatment Not on file documented as of this encounter Visit Diagnoses Not on filedocumented in this encounter Additional Health Concerns Infection Onset Date Last Indicated Resolved Time COVID-19 Rule Out 09/13/2021 09/13/2021 09/13/2021 8:27 AM CDT COVID-19 Rule Out 11/22/2021 11/22/2021 11/22/2021 3:54 AM LAND ACQUISITION MANAGER documented as of this encounter Care Teams Agricultural Engineering Teacher Relationship Specialty Start Date End Date Alphonse Cheema MD [address] [place] [address] PCP - General INTERNAL MEDICINE 09/13/21 documented as of this encounter
--- OUTSIDE RECORDS SUMMARY | 2025-05-28 16:33 | XMS_ITS | Referral Summary ---
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
--- OUTSIDE RECORDS SUMMARY | 2025-05-28 16:33 | XMS_ITS | Clinical Summary ---
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
--- OUTSIDE RECORDS SUMMARY | 2025-05-28 16:33 | XMS_ITS | Continuity of Care Document ---
Author Organization [facility] Address [address] [place] [address] Phone Care Team Providers Care Plant Director Name Role Phone Unavailable Unavailable Unavailable Advance Directives Directive Yes / No Effective Date File Name No Information Encounters Encounter Description Practice Location Reason(s) For Visit Diagnoses Date Provider Providers Copied on Encounter [facility], [address] [facility], [place], [place], [id number], tel:[phone] [facility] No Information 0 7 No Information Referring Provider: DARYL GONSALEZ, [address] [place] [address],[place], [address]. tel:[phone] Family History Family Member Type Diagnosis Age At Onset No Information Payers Payer name Insurance type Covered alliance party ID Authoriza lyndonadry(s) [facility] POS [id number] CI [id number] Social History Type Description Quantity Date Captured Comments Sex Female Smoking Status No Information Chief Complaint And Reason For Visit No Information History Of Present Illness Encounter Date Complaint History Of Prese nt Illness No Information Instructions Date Instruction Additional Infor mation No Information Assessments Type Assessment Date No Information
--- OUTSIDE RECORDS SUMMARY | 2025-05-28 16:33 | XMS_ITS | Clinical Summary ---
Author Organization [facility] Address [address] [place] [address] Phone Care Team Providers Care Weeder Name Role Phone Unavailable Primary Care Provider [...]
--- OUTSIDE RECORDS SUMMARY | 2025-05-28 16:33 | XMS_ITS | Clinical Summary ---
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
--- NOTE | 2025-05-28 16:53 | PC.NURSE ---
Pt given ice chips with ERP permission.
--- NOTE | 2025-05-28 16:59 | PC.NURSE ---
Pt requesting more zofran. ERP aware.
[2025-05-28] MEDS: METOCLOPRAMIDE HCL INJ 10 MG/2 ML VIAL IV PUSH (17:03)
== END 2025-05-28 17:25 | disposition home or self-care (01) ==
PROVIDERS: Emergency Provider Emergency Medicine; PCP Internal Medicine
DX: F10.920 Alcohol use, unspecified with intoxication, uncomplicated (principal); R11.2 Nausea with vomiting, unspecified
CPT/HCPCS: 96361; 96374; 96375; 99284; J2405; J2470; J2765; J7030

== ENCOUNTER 2025-06-21 09:56 | Outpatient (CLI) | payer OTHER, MEDICAID, SELFPAY ==
--- OUTSIDE RECORDS SUMMARY | 2025-06-21 10:23 | XMS_ITS | Clinical Summary ---
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
--- OUTSIDE RECORDS SUMMARY | 2025-06-21 10:23 | XMS_ITS | Referral Summary ---
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
--- OUTSIDE RECORDS SUMMARY | 2025-06-21 10:23 | XMS_ITS | Encounter Summary ---
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 Gender Identity Not on file Sexual Orientation Not on file documented as of this encounter Plan of Treatment Not on file documented as of this encounter Visit Diagnoses Not on filedocumented in this encounter Additional Health Concerns Infection Onset Date Last Indicated Resolved Time COVID-19 Rule Out 09/13/2021 09/13/2021 09/13/2021 8:27 AM CDT COVID-19 Rule Out 11/22/2021 11/22/2021 11/22/2021 3:54 AM SOLDERER ASSEMBLY REPAIR documented as of this encounter Care Teams Information Technology Consultant Relationship Specialty Start Date End Date Alphonse Cheema MD [address] [place] [address] PCP - General INTERNAL MEDICINE 09/13/21 documented as of this encounter
--- OUTSIDE RECORDS SUMMARY | 2025-06-21 10:23 | XMS_ITS | Clinical Summary ---
Author Organization [facility] Address [address] [place] [address] Phone Care Team Providers Care Retail Service Specialist Name Role Phone Unavailable Primary Care Provider [...] Comments Hepatitis C Virus (HCV) Screening 1998 SARS-COV-2 Immunization ( season) 2024 Influenza Immunization (#1) 2025 09/04/2011, 1 12/21/2005 Respiratory Syncytial Virus (RSV) Immunization (Adult) (1 [...]
--- OUTSIDE RECORDS SUMMARY | 2025-06-21 10:23 | XMS_ITS | Clinical Summary ---
Author Organization [facility] Emily pacheco - 2022 Address [address] [facility] [address] [place] [address] Phone Care Team Providers Care Seismograph Operator Helper Name Role Phone Alphonse Cheema MD Primary Care Provider [phone] Social History Tobacco Use Types Packs/Day Years [...] SMEAR 2019 INFLUENZA VACCINE (#1) 2025 Insurance [facility] [id number] Care Teams Seismograph Operator Helper Relationship Specialty Start Date End Date Alphonse Cheema MD [address] [place] [address] PCP - General Internal Medicine 09/17/16
--- OUTSIDE RECORDS SUMMARY | 2025-06-21 10:23 | XMS_ITS | Clinical Summary ---
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
== END 2025-06-21 09:57 | disposition home or self-care (01) ==
PROVIDERS: PCP Internal Medicine; Visit Provider Nurse Practitioner Family
DX: R30.0 Dysuria (principal)
CPT/HCPCS: 87086

== ENCOUNTER 2025-07-28 20:58 | Emergency (ER) | payer OTHER, MEDICAID, SELFPAY ==
--- OUTSIDE RECORDS SUMMARY | 2016-12-16 18:00 | XMS_ITS | Continuity of Care Document ---
Author Organization [facility] Address [address] [place] [address] Phone Care Team Providers Care Optics Engineer Name Role Phone Unavailable Unavailable Unavailable Advance Directives Directive Yes / No Effective Date File Name No Information Encounters Encounter Description Practice Location Reason(s) For Visit Diagnoses Date Provider Providers Copied on Encounter [facility], [address] [facility], [place], [place], [id number], tel:[phone] [facility] No Information 0 7 No Information Referring Provider: DARYL GONSALEZ, [address] [place] [address],[place], [address]. tel:[phone] Family History Family Member Type Diagnosis Age At Onset No Information Payers Payer name Insurance type Covered green party ID Authoriza lyndonadry(s) [facility] POS [id number] Social History Type Description Quantity Date Captured Comments Sex Female Smoking Status No Information Chief Complaint And Reason For Visit No Information History Of Present Illness Encounter Date Complaint History Of Prese nt Illness No Information Instructions Date Instruction Additional Infor mation No Information Assessments Type Assessment Date No Information
--- OUTSIDE RECORDS SUMMARY | 2025-07-28 21:00 | XMS_ITS | Clinical Summary ---
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
--- OUTSIDE RECORDS SUMMARY | 2025-07-28 21:00 | XMS_ITS | Encounter Summary ---
Author Organization [facility] Address [facility] [place] [address] Care Team Providers Care Design Printer Balloon Name Role Phone Alphonse Cheema MD Primary Care Provider [phone] Encounter Details Date Type Department Care Team (Late st Contact Info) Description 04/24/2019 Abstract SFL CONVERSION [address] [place] [address] , Generic Conversion, Social History Tobacco Use Types Packs/Day Years Used Date Smoking Tobacco: Never Assessed Comments Unknown Sex and Gender Information Value Date Recorded Sex Assigned at Not on file Legal Sex Female 5:50 PM COMIC ILLUSTRATOR Gender Identity Not on file Sexual Orientation Not on file documented as of this encounter Plan of Treatment Not on file documented as of this encounter Visit Diagnoses Not on filedocumented in this encounter Additional Health Concerns Infection Onset Date Last Indicated Resolved Time COVID-19 Rule Out 09/13/2021 09/13/2021 09/13/2021 8:27 AM CDT COVID-19 Rule Out 11/22/2021 11/22/2021 11/22/2021 3:54 AM COMIC ILLUSTRATOR documented as of this encounter Care Teams Design Printer Balloon Relationship Specialty Start Date End Date Alphonse Cheema MD [address] [place] [address] PCP - General INTERNAL MEDICINE 09/13/21 documented as of this encounter
--- OUTSIDE RECORDS SUMMARY | 2025-07-28 21:00 | XMS_ITS | Clinical Summary ---
Author Organization [facility] Address [address] [place] [address] Phone Care Team Providers Care Senior Sas Programmer Name Role Phone Unavailable Primary Care Provider [...]
--- OUTSIDE RECORDS SUMMARY | 2025-07-28 21:00 | XMS_ITS | Clinical Summary ---
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 Assessment & Plan [...] on file Legal Sex Female 8:18 AM FUMIGATOR AND STERILIZER Gender Identity Female 09/07/2024 3:31 PM CDT [...] Pneumococcal vaccine <65 (2 of 2 - PPSV23, PCV20, or PCV21) 2004 06/06/2003 Regular Well Visit/Exam 18-64 2016 Influenza Vaccine (#1) 2025 9, 09/04/2011, 10/20/2006 DTaP/Tdap/Td Vaccine (8 - Td or Tdap) 12/11/2026 12/11/2016, 06/30/2013, 06/06/2003, Additional history exists Hepatitis B Screening Completed 04/06/1999 , 1998, 1998 Varicella Vaccines Completed 07/12/2010, 06/20/2003 HPV Vaccines Completed 04/06/2014, 11/18, 06/30/2013 Insurance [facility] IDPA Advance Directives For more information, please contact: [phone] * Full Code (Latest Code Status on File) Date Activated Date Inactivated Comments 05/22/2022 2:45 PM 05/22/2022 10:43 PM Care Teams Goat Herder Relationship Specialty Start Date End Date Alphonse Cheema MD PCP - General Internal Medicine 02/27/22
[2025-07-28 21:02] VITALS: BP 133/85; PULSE 67; RESP 22; TEMP 36.5; O2SAT 100
[2025-07-28] MEDS: PANTOPRAZOLE SODIUM IV 40 MG VIAL IV PUSH (21:39)
[2025-07-28] MEDS: ONDANSETRON INJ 4 MG/2 ML VIAL IV PUSH (21:39)
[2025-07-28] MEDS: SODIUM CHLORIDE 0.9% IV 1,000 ML 999 ML IV CONT (21:39)
--- NOTE | 2025-07-28 21:41 | ED.NAVMDI ---
HPI - Nausea/Vomiting/Diarrhea General Chief complaint: Nausea/Vomiting/Diarrhea Stated complaint: vomiting blood Time Seen by Provider: 07/28/25 21:28 Source: patient and family Mode of arrival: ambulatory History of Present Illness HPI Narrative: this is a 25-year-old female that was celebrating her birthday early and had little too much to drink and yesterday and today is having some nausea vomiting feels dehydrated with no abdominal pain no chest pain does have some heartburn sensation had episode of vomiting and retching. Otherwise no fever chills no dysuria no flank pain no chest pain or shortness of breath. MD elicited complaint: vomiting Onset (ago): hour(s) Description of vomiting: food contents and watery Related Data Home Medications ?Medication ?Instructions ?Recorded ?Confirmed ?Last Taken ?Type lorazepam 0.5 mg tablet 0.5 mg PO DAILY PRN anxiety 02/22/25 04/29/25 04/28/25 History omeprazole 40 mg capsule,delayed 40 mg PO DAILY 04/21/25 04/29/25 04/28/25 History release Allergies Allergy/AdvReac Type Severity Reaction Status Date / Time Penicillins Allergy Severe Hives Verified 05/28/25 16:01 Sulfa (Sulfonamide Allergy Hives Verified 05/28/25 16:01 Antibiotics) Review of Systems Review of Systems: All systems reviewed & are unremarkable except as noted in HPI and below PMFSH Past Medical History Medical History Asthma Thyroid disease Adnexal fullness Body mass index [BMI] pediatric, less than 5th percentile for age (01/30/18) Diarrhea Encounter for supervision of normal first , second trimester Encounter for supervision of normal first , third trimester Encounter for IUD insertion Encounter for visit Encounter for test, result negative IUD check up Pelvic pain in female Supervision of high risk in third trimester Supervision of other high risk pregnancies, second trimester Vaginal bleeding Anxiety Goiter Surgical History Surgical History H/O wisdom tooth extraction Hx of parathyroidectomy Family History Family History Grandparent Diabetes mellitus Hypertension Mother Asthma Sibling Asthma Other Family history of malignant neoplasm of cervix Social History Social History Smoking status: Never smoker Second hand tobacco smoke exposure: Yes Alcohol intake: current Drinks per week: 1 Alcohol use details: SOCIALLY Substance use: current Substance use type: marijuana Other substance usage details: smokes marijuana daily Last use: 06/25/2024 Do You Feel Safe in your Home?: Yes Lack of Transportation: YES Lack of Food: Never True Current Housing: I Have Housing Concerned About Future Housing: No Difficulty Paying Gas/Electric Bills: YES Difficulty Paying for Meds: YES Currently Unemployed: YES Education: High School Diploma/GED Difficulty w/ Childcare or Family Care: No Living arrangements: alone Gender identity (if verbalized by the patient): Female Spiritual care concerns: No Exam Const: General: healthy appearing and no acute distress Nutritional Appearance: well nourished Orientation/consciousness: patient oriented x3 Limitations: no limitations Eyes: Conjunctivae: conjunctivae normal Neck: Neck: normal visual inspection Chest: Chest palpation & inspection: normal inspection of the chest Resp: Effort & Inspection: normal respiratory effort Auscultation: clear to auscultation bilaterally Cardio: Rate: regular rate Rhythm: regular rhythm GI: GI Palp: Yes Soft to palpation Auscultation: normal bowel sounds : General: Yes bladder normal to palpation Back/Spine/Pelvis: Back: no CVA tenderness Skin: General skin exam: normal color Rashes: no rashes Neuro: General: patient oriented x3, moves all extremities, no meningeal signs and no focal motor deficits Course Course Emergency Course: Patient received IV fluids along with IV Zofran and IV Protonix after reassessment patient's symptoms have improved. Vital Signs Vital signs: Vital Signs Temperature 36.5 C 07/28/25 21:02 Pulse Rate 67 07/28/25 21:02 Respiratory Rate 22 H 07/28/25 21:02 Blood Pressure 133/85 07/28/25 21:02 Pulse Oximetry 100 07/28/25 21:02 Oxygen Delivery Room Air 07/28/25 21:02 Temperature 36.5 C 07/28/25 21:02 Pulse Rate 67 07/28/25 21:02 Respiratory Rate 22 H 07/28/25 21:02 Blood Pressure 133/85 07/28/25 21:02 Pulse Oximetry 100 07/28/25 21:02 Oxygen Delivery Room Air 07/28/25 21:02 Critical Care Time Critical Care Time Critical Care Time: No Discharge Plan Discharge Clinical Impression: Alcohol abuse Nausea & vomiting Qualifiers: Vomiting type: unspecified Qualified Code(s): R11.2 - Nausea with vomiting, unspecified Patient Disposition: Home Condition: Stable Instructions: Antibiotic Form, Dehydration (ED), Acute Nausea and Vomiting (ED) Additional Instructions: advised to drink plenty of fluids take medication as prescribed and follow up with primary if symptoms persist or worsen. Patient Language: Congolese Prescriptions: New ondansetron 4 mg tablet,disintegrating 4 mg PO Q6H PRN (Reason: nausea and vomiting) Qty: 14 0RF pantoprazole [Protonix] 40 mg tablet,delayed release (DR/EC) 40 mg PO QAM Qty: 20 0RF No Action ondansetron 4 mg tablet,disintegrating 4 mg PO Q8H PRN (Reason: nausea and vomiting) Qty: 10 0RF ondansetron 4 mg tablet,disintegrating 4 mg PO Q6H PRN (Reason: nausea and vomiting) Qty: 10 0RF pantoprazole [Protonix] 40 mg tablet,delayed release (DR/EC) 40 mg PO QAM Qty: 7 0RF lorazepam 0.5 mg tablet 0.5 mg PO DAILY PRN (Reason: anxiety) etonogestrel-ethinyl estradiol [NuvaRing] 0.12-0.015 mg/24 hr ring 1 vag ring vaginal ONCE Qty: 3 3RF omeprazole 40 mg capsule,delayed release(DR/EC) 40 mg PO DAILY Follow-up/Referrals: Alphonse Cheema MD [Primary Care Provider, Internal Medicine] Time of Disposition: 21:44
[2025-07-28 22:47] VITALS: BP 132/82; PULSE 78; RESP 20; O2SAT 97
== END 2025-07-28 22:47 | disposition home or self-care (01) ==
LOC: CHSED 21:49
PROVIDERS: Emergency Provider Emergency Medicine; PCP Internal Medicine
DX: F10.10 Alcohol abuse, uncomplicated (principal); Y90.9 Presence of alcohol in blood, level not specified; R11.2 Nausea with vomiting, unspecified
CPT/HCPCS: 96361; 96374; 96375; 99284; J2405; J2470; J7030

== ENCOUNTER 2025-08-22 10:20 | Outpatient (CLI) | payer OTHER, MEDICAID, SELFPAY ==
--- NOTE | ~2025-08-22 | XR_ITS ---
EXAMINATION: XR hand LT min 3V, 08/22/2025 10:30 CDT HISTORY: L HAND INJ COMPARISON: No comparisons available. Findings: No acute fracture or malalignment. No significant degenerative changes. Soft tissues unremarkable. Impression: No acute fracture or malalignment. Reviewed, dictated and finalized at location P. Impression: No acute fracture or malalignment.
--- OUTSIDE RECORDS SUMMARY | 2025-08-22 11:38 | XMS_ITS | Clinical Summary ---
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
--- OUTSIDE RECORDS SUMMARY | 2025-08-22 11:38 | XMS_ITS | Clinical Summary ---
Author Organization [facility] Emily pacheco - [birth year]22 [address] [facility] [address] [place] [address] Phone Care Team Providers Care Mine Engineer Name Role Phone Alphonse Cheema MD Primary Care Provider [phone] Social History Tobacco Use Types Packs/Day Years Used Date Smoking Tobacco: Never Assessed Comments Unknown Sex and Gender Information Value Date Recorded Sex Assigned at Not on file Legal Sex Female 2:11 PM CDT Gender Identity Not on file Sexual Orientation Not on file Plan of Treatment Health Maintenance Due Date Last Done Comments DTAP/TDAP/TD VACCINES (1 - Tdap) 2017 HEPATITIS B VACCINES (1 of 3 - 19+ 3-dose series) 07/18 CERVICAL CANCER SCREENING 2019 HPV/Cotest (21-29) 2019 PAP SMEAR 2019 INFLUENZA VACCINE (#1) 2025 HPV VACCINES (1 - 3-dose SCDM series) 2025 Insurance [facility] OPT[employer] PPO [id number] Care Teams Mine Engineer Relationship Specialty Start Date End Date Alphonse Cheema MD [address] [place] [address] PCP - General Internal Medicine 09/17/16
--- OUTSIDE RECORDS SUMMARY | 2025-08-22 11:38 | XMS_ITS | Clinical Summary ---
Author Organization [facility] Address [facility] [place] [address] Care Team Providers Care Back Digger Operator Name Role Phone Alphonse Cheema MD Primary Care Provider [phone] Allergies Active Allergy Reactions Criticality Noted Date [...] Active Active Problems No known active problems Social History Tobacco Use Types Packs/Day Years Used Date Smoking Tobacco: Never Smokeless Tobacco: Never Alcohol Use Standard Drinks/Week Comments Not Currently 0 (1 standard drink = 0.6 oz pur e alcohol) Comments No Sex and Gender Information Value Date Recorded Sex Assigned at Not on file Legal Sex Female 5:50 PM ACCOUNT RELATIONSHIP MANAGER Gender Identity Not on file Sexual [...] patient's age to complete this topic Insurance [employer] Care Teams Back Digger Operator Relationship Specialty Start Date End Date Alphonse Cheema MD [address] [place] [address] PCP - General INTERNAL MEDICINE 09/13/21
--- OUTSIDE RECORDS SUMMARY | 2025-08-22 11:38 | XMS_ITS | Clinical Summary ---
Author Organization [facility] Address [address] [place] [address] Phone Care Team Providers Care Brake Press Operator Name Role Phone Unavailable Primary Care [...] Comments Hepatitis C Virus (HCV) Screening 1998 Influenza Immunization (#1) 2025 09/04/2011, 1 12/21/2005 SARS-COV-2 Immunization ( season) 2025 Respiratory Syncytial Virus (RSV) Immunization (Adult) (1 [...]
--- OUTSIDE RECORDS SUMMARY | 2025-08-22 11:38 | XMS_ITS | Encounter Summary ---
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 Gender Identity Not on file Sexual Orientation Not on file documented as of this encounter Plan of Treatment Not on file documented as of this encounter Visit Diagnoses Not on filedocumented in this encounter Additional Health Concerns Infection Onset Date Last Indicated Resolved Time COVID-19 Rule Out 09/13/2021 09/13/2021 09/13/2021 8:27 AM CDT COVID-19 Rule Out 11/22/2021 11/22/2021 11/22/2021 3:54 AM 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
== END 2025-08-22 10:21 | disposition home or self-care (01) ==
PROVIDERS: PCP Internal Medicine; Visit Provider Nurse Practitioner Family
DX: S69.92XA Unspecified injury of left wrist, hand and finger(s), initial encounter (principal)
CPT/HCPCS: 73130